=== PATIENT | male | born 1980 | race Caucasian/White ===

== ENCOUNTER 2024-11-02 08:16 | Outpatient (OUT) | payer BC, SELFPAY ==
--- NOTE | 2024-11-02 08:20 | FL_ITS ---
The [place] [id number] Patient Name: MEENAKSHI ROONEY MRN: [id number] date: 1980 Sex: M Assigned Patient Location: [place] Current Patient Location: [place] Accession/Order Number: [id number] Exam Date: 11/02/2024 08:30 Report Date: 11/02/2024 15:48 At the request of: JOVITA KAUFMAN Procedure: FL cineradiography PROCEDURE: FL upper GI w air, [place] cineradiography COMPARISON: None. HISTORY: Gastroesophageal Reflux Disease TECHNIQUE: An air contrast upper gastrointestinal series was performed in the usual manner. Standard level fluoroscopic mode of operation utilized. FINDINGS: ESOPHAGUS:Several episodes of mild gastroesophageal reflux. No visible obstruction, dilatation, or hernia STOMACH: No obstruction, mass, or ulceration. Normal motility. DUODENUM:No ulceration or diverticulum. OTHER: Negative. FL/FL cineradiography IMPRESSION: 1. Mild gastroesophageal reflux. Otherwise unremarkable upper GI study. Electronically authenticated by: DAKOTAH GOLDBERG Date: 11/02/2024 15:48
--- NOTE | 2024-11-02 08:20 | FL_ITS ---
The [address] [address] Patient Name: MEENAKSHI ROONEY MRN: [id number] date: 1980 Sex: M Assigned Patient Location: [place] Current Patient Location: [place] Accession/Order Number: [id number] Exam Date: 11/02/2024 08:30 Report Date: 11/02/2024 15:48 At the request of: JOVITA KAUFMAN Procedure: FL upper GI w air PROCEDURE: FL upper GI w air, [place] cineradiography COMPARISON: None. HISTORY: Gastroesophageal Reflux Disease TECHNIQUE: An air contrast upper gastrointestinal series was performed in the usual manner. Standard level fluoroscopic mode of operation utilized. FINDINGS: ESOPHAGUS:Several episodes of mild gastroesophageal reflux. No visible obstruction, dilatation, or hernia STOMACH: No obstruction, mass, or ulceration. Normal motility. DUODENUM:No ulceration or diverticulum. OTHER: Negative. [place] upper GI w air IMPRESSION: 1. Mild gastroesophageal reflux. Otherwise unremarkable upper GI study. Electronically authenticated by: DAKOTAH GOLDBERG Date: 11/02/2024 15:48
== END 2024-11-02 08:17 | disposition home or self-care (01) ==
LOC: FL 08:17
PROVIDERS: PCP Family Medicine; Visit Provider Family Medicine
DX: K21.9 Gastro-esophageal reflux disease without esophagitis (principal)
CPT/HCPCS: 74246; 76120

== ENCOUNTER 2024-12-07 12:36 | Outpatient (OUT) | payer BC, SELFPAY ==
--- OUTSIDE RECORDS SUMMARY | 2024-12-07 12:57 | XMS_ITS | CCD ---
Author Organization [facility] CliniSyal Care Team Providers Care Fur Glazer Name Role Phone DR JOVITA MARTINEZ Admitting Unavailable MANDEEP, DR HUSSEIN Attending Unavailable MANDEEP, DR HUSSEIN Primary Care Unavailable MANDEEP, DR HUSSEIN Admitting Unavailable MANDEEP, DR HUSSEIN Attending Unavailable MANDEEP, DR HUSSEIN Primary Care Unavailable HOY, DR HUSSEIN Admitting Unavailable MANDEEP, DR HUSSEIN Attending Unavailable MANDEEP, DR HUSSEIN Consulting Unavailable MANDEEP, DR HUSSEIN Primary Care Unavailable Turner Swenson DO Unavailable [phone] Margaux Vincent Unavailable Remberto Chapa Unavailable Turner Swenson DO Unavailable Chapo RODRIGUEZ, Mauricio Unavailable Turner Swenson DO Unavailable [phone] Mauricio Cowan MD Unavailable Jovita Martinez Primary Care Physician [phone] Kaykay Jimenez Unavailable MD Jovita Martinez Primary Care Provider DO Turner Swenson Attending Provider Jovita Martinez Unavailable Dr. Obey Gauthier III Attending Un available Dr. Jovita Martinez Primary Care Unavail able Dulce Fierro Admitting Unavailable Jovita Martinez Primary Care Unavailable Dulce Fierro Attending Unavailable Turner Swenson Attending Unavaila Turner Schafer Admitting Unavaila Jovita Walton Primary Care Unavailable Hoy, MD Jovita M Primary Care Provider [phone] CANDELARIO Fierro Emergency Provider [phone] Tawanda PALOMINO-Sofya BOWERS Unavailable Turner Swenson DO Unavailable [phone] Unavailable Primary Care Provider Unavailabl e Unavailable Primary Care Provider Unavailabl e SOFYA DSOUZA Attending Unavailable PROVIDER, UNKNOWN Admitting Unavailable SOFYA DSOUZA Attending Unavailable PROVIDER, UNKNOWN Admitting Unavailable SOFYA DSOUZA Referring Unavailable PROVIDER, UNKNOWN Attending Unavailable PROVIDER, UNKNOWN Admitting Unavailable SOFYA DSOUZA Attending Unavailable PROVIDER, UNKNOWN Admitting Unavailable PROVIDER, UNKNOWN Admitting Unavailable SOFYA DSOUZA Attending Unavailable Eleazar MIMS Attending Unavailable Jovita Martinez Referring Unavailable Medications Current Medications Medication Drug Class(es) Dates Sig (Normalized) Sig (Original) amoxicillin 500 mg oral capsule (1 source) Penicillin-class Antibacterial Start: 02-07-2023 take 1 capsule by mouth every eight hours Amoxicillin 500 MG 1 capsule Orally three times a day for 10 day(s) Jan, Active aspirin 81 mg chewable tablet (9 sources) Platelet Aggregation Inhibitor, Nonsteroidal Anti-inflammatory Drug Start: 06-05-2021 take 81 mg by mouth twice daily Aspirin Active 81 MG PO Twice daily 60 June 05, 2021 12:00am End: 10-13-2022 take 1 tablet by mouth twice daily aspirin 81 MG enteric coated tablet Take 81 mg by mouth 2 times daily. 0 10/13/2022 Discontinued cyclobenzaprine hydrochloride 10 mg oral tablet (9 sources) Muscle Relaxant Start: 06-04-2021 End: 10-13-2022 take 10 mg by mouth every eight hours Cyclobenzaprine Active 10 MG PO Q8H 60 June 04, 2021 12:00am diclofenac sodium 0.01 mg/mg topical gel (1 source) Nonsteroidal Anti-inflammator y Drug Start: 10-13-2022 End: 11-12-2022 diclofenac (Voltaren) 1 % GEL topical gel Apply 2 g topically 4 times daily. 100 g 0 10/13/2022 11/12/2022 Active docusate sodium 100 mg oral capsule (20 sources) Start: 05-20-2021 take 1 capsule by mouth twice daily docusate sodium (Colace) 100 MG capsule Take 1 Capsule by mouth 2 times daily. 60 Capsule 05/20/2021 Active 0.4 ml enoxaparin sodium 100 mg/ml prefilled syringe (20 sources) Low Molecular Weight Heparin Start: 05-25-2021 inject 0.4 mL by subcutaneous injection twice daily enoxaparin (Lovenox) 40 mg/0.4 mL injection Inject 0.4 mL under the skin 2 times daily. 33.6 mL 05/25/2021 Active gabapentin 100 mg oral capsule (9 sources) Anti-epileptic Agent Start: 06-04-2021 End: 10-13-2022 take 100 mg by mouth three times daily Gabapentin Active 100 MG PO Three times daily June 04, 2021 12:00am lidocaine 0.05 mg/mg medicated patch (19 sources) Antiarrhythmic, Amide Local Anesthetic Start: 10-13-2022 apply 1 dose transdermal route every twenty-four hours lidocaine (Lidoderm) 5 % patch Place 1 Patch on the skin every 24 hours. 10 Patch 3 10/13/2022 Active naproxen 500 mg oral tablet (20 sources) Nonsteroidal Anti-inflammator y Drug Start: 06-27-2023 take 1 tablet by mouth twice daily Naproxen (Naprosyn) 500 mg tablet Active 500 MG PO Twice daily June 27, 2023 12:00am Naproxen Sodium (Aleve) 220 MG CAPS Aleve Active Naproxen Sodium (ALEVE ORAL) Take by mouth. Pt. States he doesn't know the mg he takes. Active Naproxen Sodium (ALEVE ORAL) Take by mouth. Pt. States he doesn't know the mg he takes. 0 Active omeprazole 20 mg delayed release oral capsule (9 sources) Proton Pump Inhibitor Start: 06-04-2021 End: 10-13-2022 take 20 mg by mouth once daily Omeprazole Active 20 MG PO Daily June 04, 2021 12:00am oxyCODONE hydrochloride 5 mg oral tablet (9 sources) Opioid Agonist Start: 06-04-2021 End: 10-13-2022 take 5 mg by mouth every four hours Oxycodone Active 5 MG PO Every 4 hours 40 June 04, 2021 polysaccharide iron complex 150 mg oral capsule (9 sources) Start: 06-04-2021 End: 10-13-2022 Polysaccharide Iron Complex (Ferrex 150) 150 mg iron Capsule Active 150 MG PO Every morning June 04, 2021 12:00am pregabalin 100 mg oral capsule (20 sources) Start: 09-07-2024 End: 03-07-2025 take 1 capsule by mouth twice daily for pain pregabalin (LYRICA) 100 MG capsule Indications: Neuropathic pain , Displaced comminuted fracture of shaft of left tibia, subsequent encounter for closed fracture with delayed healing , Pain syndrome, chronic Take 1 Capsule by mouth 2 times daily for 90 days. 60 Capsule 2 12/07/2024 03/07/2025 Active Start: 02-26-2024 End: 08-10-2024 take 1 capsule by mouth twice daily for pain pregabalin (LYRICA) 100 MG capsule Indications: Neuropathic pain , Displaced comminuted fracture of shaft of left tibia, subsequent encounter for closed fracture with delayed healing , Pain syndrome, chronic Take 1 Capsule by mouth 2 times daily for 90 days. 60 Capsule 2 05/04/2024 08/10/2024 Discontinued (Reorder (*won't e-cancel)) Start: 08-23-2023 End: 02-16-2024 take 1 capsule by mouth twice daily pregabalin (LYRICA) 100 MG capsule Take 1 Capsule by mouth 2 times daily for 90 days. 60 Capsule 2 11/18/2023 02/03/2024 Discontinued (Reorder (*won't e-cancel)) Start: 01-14-2023 End: 08-23-2023 take 2 capsules by mouth twice daily pregabalin (Lyrica) 50 MG capsule Indications: Neuropathic pain , Pain syndrome, chronic Take 2 Capsules by mouth 2 times daily for 90 days. 120 Capsule 2 04/27/2023 08/23/2023 Discontinued (Dose adjustment) Start: 10-13-2022 End: 01-14-2023 take 1 capsule by mouth twice daily pregabalin (Lyrica) 50 MG capsule Indications: Pain syndrome, chronic , Neuropathic pain Take 1 Capsule by mouth 2 times daily for 90 days. 60 Capsule 2 10/13/2022 01/14/2023 Discontinued (Reorder (*won't e-cancel)) Sennosides (Senna Lax) 8.6 mg Tablet (2 sources) Start: 06-04-2021 take 2 tablets by mouth once daily Sennosides (Senna Lax) 8.6 mg Tablet Active 2 TAB PO DAILY@12 60 June 04, 2021 12:00am Completed/Discontinued Medications Medication Drug Class(es) Dates Sig (Normalized) Sig (Original) acetaminophen 500 mg oral tablet (11 sources) Start: 06-04-2021 End: 10-13-2022 acetaminophen (TYLENOL) 500 MG tablet Acetaminophen Active 500 MG PO Q4H 120 June 04, 2021 10:51am 0 06/04/2021 10/13/2022 Discontinued Start: 06-04-2021 take 500 mg by mouth every four hours Acetaminophen Active 500 MG PO Q4H 120 June 04, 2021 12:00am acetaminophen 325 mg / HYDROcodone bitartrate 5 mg oral tablet (1 source) Opioid Agonist Start: 10-26-2013 Charlotte 325 mg-5 mg oral tablet 1 tab(s), Oral, q4hr PRN for pain, 12 tab(s), Refill(s) 0, 0, Print Requisition Start Date: 10/26/13 Status: Ordered amoxicillin 875 mg / clavulanate 125 mg oral tablet (6 sources) Penicillin-class Antibacterial Start: 04-20-2023 End: 08-23-2023 take 1 tablet by mouth every twelve hours amoxicillin-clavul anate (AUGMENTIN) 875-125 MG per tablet Take 1 Tablet by mouth every 12 hours. for 10 days 0 04/20/2023 08/23/2023 Discontinued (Therapy completed) cephalexin 500 mg oral capsule (1 source) Cephalosporin Antibacterial Start: 10-26-2013 take 1 capsule by mouth four times daily Keflex 500 mg Cap 500 mg = 1 cap(s), Oral, QID, Take one capsule by mouth four times a day, # 40 cap(s), Refills(s) 0, 0, Print Requisition Start Date: 10/26/13 Status: Ordered ibuprofen 600 mg oral tablet (11 sources) Nonsteroidal Anti-inflammatory Drug Start: 06-04-2021 End: 10-13-2022 ibuprofen (MOTRIN) 600 MG tablet Ibuprofen Active 600 MG PO Q6H 60 June 04, 2021 10:51am 0 06/04/2021 10/13/2022 Discontinued Start: 06-04-2021 take 600 mg by mouth every six hours Ibuprofen Active 600 MG PO Q6H 60 June 04, 2021 12:00am Senna Leaves (7 sources) Start: 06-04-2021 End: 10-13-2022 SENNA CO Sennosides (Senna L ax) 8.6 mg Tablet Active 2 TAB PO DAILY@12 60 June 04, 2021 10:51am 0 06/04/2021 10/13/2022 Discontinued Start: 06-04-2021 SENNA CO Senno sides (Senna Lax) 8.6 mg Tablet Active 2 TAB PO DAILY@12 60 June 04, 2021 10:51am 0 06/04/2021 Active Problems Active Problems Problem Classification Problem Date Documented Date Episodic/Chronic Administrative/social admission (2 sources) Other reduced mobility; Translations: [Impaired mobility and activities of daily living] 05-26-2021 Episodic Deficiency and other anemia (2 sources) Anemia; Translations: [Anemia, unspecified] 05-26-2021 Episodic Other bone disease and musculoskeletal deformities (1 source) Bone pain; Translations: [Disorder of bone and cartilage, unspecified] Episodic Other connective tissue disease (20 sources) Neuropathic pain; Translations: [Neuralgia and neuritis, unspecified] Onset: 10-13-2022 Episodic Other connective tissue disease (2 sources) Spasm; Translations: [Other muscle spasm] 05-29-2021 Episodic Other connective tissue disease (1 source) Neuralgia; Translations: [Neuralgia and neuritis, unspecified] 04-27-2023 Episodic Other connective tissue disease (2 sources) Pain in left lower limb; Translations: [Pain in left lower leg] 07-16-2024 Episodic Other injuries and conditions due to external causes (1 source) Multiple injuries; Translations: [Unspecified multiple injuries, initial encounter] Episodic Other nervous system disorders (20 sources) Chronic pain syndrome; Translations: [Chronic pain syndrome] Onset: 10-13-2022 Chronic Other nervous system disorders (3 sources) Chronic pain syndrome Onset: 10-13-2022 10-13-2022 Chronic Other nervous system disorders (1 source) Chronic pain syndrome; Translations: [Chronic pain syndrome] Onset: 10-13-2022 Chronic Other nervous system disorders (1 source) Paresthesia of left lower limb; Translations: [Paresthesia of skin] Episodic Other nervous system disorders (2 sources) Postoperative pain ; Translations: [Other acute postprocedural pain] 05-26-2021 Episodic Other non-traumatic joint disorders (1 source) Ankle pain; Translations: [Pain in joint, ankle and foot] Episodic Other screening for suspected conditions (not mental disorders or infectious disease) (4 sources) Protein level - finding; Translations: [Other specified abnormal findings of blood chemistry] 05-26-2021 Episodic Other upper respiratory infections (3 sources) Acute upper respiratory infection; Translations: [Acute upper respiratory infection, unspecified] Onset: 02-12-2023 Episodic Residual codes; unclassified (4 sources) Obstructive sleep apnea (adult) (pediatric); Translations: [OBSTRUCTIVE SLEEP APNEA] Onset: 03-29-2022 Chronic Residual codes; unclassified (2 sources) Body mass index 20-24 - normal; Translations: [Body mass index (BMI) 21.0-21.9, adult] Episodic Residual codes; unclassified (2 sources) History of operation on musculoskeletal system; Translations: [Other specified postprocedural states] 05-26-2021 Episodic Residual codes; unclassified (2 sources) History of ankle surgery; Translations: [Other specified postprocedural states] 05-26-2021 Episodic Residual codes; unclassified (4 sources) Patient encounter status; Translations: [Encounter for prophylactic measures, unspecified] 05-26-2021 Episodic Spondylosis; intervertebral disc disorders; other back problems (2 sources) Lumbar radiculopathy; Translations: [Radiculopathy, lumbar region] 11-14-2024 Episodic Sprains and strains (1 source) Sprain of unspecified part of right wrist and hand, initial encounter; Translations: [Sprain of right hand] 06-27-2023 Episodic Unclassified (1 source) Pain in right wrist; Translations: [Pain in right wrist] Onset: 06-27-2023 Past or Other Problems Problem Classification Problem Date Documented Da te Episodic/Chronic Fracture of lower limb (20 sources) Closed fracture of shaft of tibia; Translations: [Displaced comminuted fracture of shaft of left tibia, initial encounter for closed fracture] Onset: 05-19-2021 Resolved: 10-06-2021 Episodic Fracture of lower limb (20 sources) Closed fracture of shaft of femur; Translations: [Displaced spiral fracture of shaft of right femur, subsequent encounter for closed fracture with routine healing] Onset: 05-19-2021 Resolved: 10-06-2021 Episodic Other aftercare (1 source) Encounter for therapeutic drug level monitoring; Translations: [Encounter for therapeutic drug level monitoring] Onset: 08-10-2024 Episodic Other connective tissue disease (3 sources) Neuralgia, neuritis, and radiculitis, unspecified Onset: 10-13-2022 10-13-2022 Episodic Other connective tissue disease (1 source) Pain in left lower leg; Translations: [Pain in left lower leg] Onset: 07-16-2024 Episodic Other connective tissue disease (1 source) Neuralgia and neuritis, unspecified; Translations: [Neuralgia and neuritis, unspecified] Onset: 10-13-2022 Episodic Other nervous system disorders (1 source) Paresthesia of skin; Translations: [Paresthesia of skin] Onset: 02-24-2023 Episodic Results Test Name Value Interpretation Reference Range Facility Ambulatory Visit Summaryon 0 12-05-2024 Ambulatory Visit Summary Ambulatory Visit Summary TOM ROONEY :1980 Visit Date:12/05/2024 Ambulatory Visit Instructions Your Care Team Attending Physician - Eleazar MIMS MD Primary Care Physician - Jovita Martinez MD Referring Physician - Jovita Martinez MD This Is Your Medications List Contact prescribing physician if questions or concerns pantoprazole (Protonix 40 mg Tab-DR) pregabalin (pregabalin 150 mg Cap) Procedures Performed Buccal mucosa squamous cell carcinoma., ORIF - Open reduction and internal fixation of fracture, Tympanostomy tube. Discharge Vitals Heart Rate (Peripheral) 71 Respiratory Rate 16 Blood Pressure 120/78 Height 190.5 cm Height 75 in Weight 86.4 kg Weight 190.479 lb BMI 23.81 Medications What How Much When Instructions Unchanged pantoprazole (Protonix 40 mg Tab-DR) 1 Tablets By Mouth Every day Contact prescribing physician if questions or concerns Unchanged pregabalin (pregabalin 150 mg Cap) 1 Capsules By Mouth Every day Contact prescribing physician if questions or concerns Allergies No Known Allergies Problems Ongoing - Any problem that you are currently receiving treatment for. Chronic constipation Chronic pain syndrome Chronic prostatitis GERD (gastroesophageal reflux disease) DORIAN (obstructive sleep apnea) Seasonal allergic rhinitis Patient Survey You may receive a survey via text or e-mail asking about your office visit. Please share your experience with us by completing your survey. We appreciate your feedback and thank you for choosing us for your care. 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 Patient presents today for follow up regarding chronic conditions. History was provided by the patient. Since the last visit for knee, ankle and leg pain, patient has had stable course. Pain level today is 0/10. Pain when present is currently described as throbbing and stabbingwith radiation to legs and without weakness of arms or legs, and is made worse by nothing.Patient denies any recent traumas or injuries. He is being prescribed Lyrica. He is reporting this regimen is improving his ability to perform his ADL's and is reporting an analgesic effect with medication therapy. Patient reports sharp pain and pressure intermittently in great toe and second toe, mostly in left can happen in right as well REVIEW OF SYSTEMS: Constitutional: Denies unexplained wt loss/gain, change in appetite, fever, and chills. Respiratory: negative symptoms (no cough, hemoptysis, SOB, KEARNEY, PND, wheezing) Cardiovascular: negative symptoms (No CP/Pressure/Tightness, palpitations, orthopnea, PND, SOB, KEARNEY, edema, MELENDEZ or vision change) Gastrointestinal: negative symptoms (no abdominal pain, anorexia, n/v, indigestion, constipation, or diarrhea) Musculoskeletal: bilateral lower extremities : Denies bowel or bladder incontinence or saddle anesthesia. Neuro: Intermittently tingling in right foot and left foot. OBJECTIVE: Today's vital signs were reviewed General appearance: alert, pleasant, mild distress, cooperative. Skin: Normal turgor; no rash or other lesions, no peripheral edema. Neck: supple and no adenopathy. Lungs:deferred. Heart: deferred. Abdomen: Deferred. Back: Back: Symmetric, no abnormal curvature. Musculoskeletal: Left upper extremity 5/5, Right upper extremity 5/5, Left lower extremity 4/5, and Right lower extremity 5/5 strength respectively. TTP over left anterior tibia and ankle scars Neurologic: Positive vibratory sensation LUE, RUE, LLE, and RLE. Last OV: 08/10/24 Last MD CO KEITH and Plan: 04/13/23 Impression: 42 YOM , S.P WC injury right femur IMN and left tibia IMN and ankle ORIF in 04/2021 with neuropathic pain distal leg and ankle , non dermatomal , better Plan: 1. Discussed options OARRS reviewed Voltaren gel Lido patches Increase to Lyrica 100 BID Discussed sciatic and saphenus blocks if pain worsen F/U with COMPENSATION DIRECTOR in 3 M The impression and plan were discussed and explained in detail. All the questions were answered. Education was provided accordingly. The procedure was explained in detail, along with risks and potential side effects. The appropriate use of the medications, including storage, risks (including addiction) and potential sides effects were explained and discussed. Procedures: None Pertinent Imaging/Labs: Left tib/fib 07/16/24 IMPRESSION: Comparison with the previous studies shows no change in position or alignment of the previously described fractures. The tibial fracture is healed or mostly healed without significant residual fracture lucency. There remains a residual deformity with bony protuberance anteriorly and a small defect posteriorly. The fibular fracture appears healed without residual fracture lucency. Hardware is intact without signs of loosening. EMG 05/13/23 Mildly abnormal study 1. Nerve conduction studies revealed absence of a left superficial peroneal sensory response, which can be seen in left superficial peroneal sensory neuropathy. However, needle EMG of muscles innervated by the left superficial peroneal nerve was normal, pointing against any motor involvement if pathology truly present. 2. There is no electrodiagnostic evidence of left tibial neuropathy or overt left L3-S1 radiculopathy. Significance of the isolated increased amplitude motor unit noted in the left EDB is uncertain. XRAY RIGHT ANKLE 05/02/23 Healed tibial shaft fracture, fibular shaft fracture ankle fracture Narrative Interpreted By: OBEY GAUTHIER MD Patient Name: TOM ROONYE STUDY: ANKLE, COMPLETE, MIN 3 VIEWS; Left; 05/02/2023 4:13 pm INDICATION: pain M25.571: Ankle pain, right. COMPARISON: None. ACCESSION NUMBER(S): [id number] ORDERING CLINICIAN: OBEY GAUTHIER FINDINGS: Multiple views left ankle: Status post open reduction internal fixation: Healed ankle fracture in near anatomic alignment. Abundant bridging bone formation of tibial shaft fracture. See EHR for PMH, PSH, FH, SH, Medications and Allergy Portions of record reviewed for pertinent issues: active problem list, medication list, allergies, family history, social history, notes from last encounter, lab results, and imaging. Relevant medical history: work related injury o (more content not included)... Normal [facility] TOX ANALYSIS W/CONFIMATION,U Bryce 11-13-2024 Amphetamines Ql (U) Negative Cutoff: 1000 ng/mL [facility] Barbiturates Screen Ql (U) Negative Cutoff: 200 ng/mL [facility] Benzodiazepines Ql (U) Negative Cutof f: 200 ng/mL [facility] Benzoylecgonine Screen Ql (U) Negative Cutoff: 300 ng/mL [facility] Ethanol Screen Ql (U) Negative Cutoff : 10 mg/dL [facility] fentaNYL Screen Ql (U) Negative Cutof f: 1 ng/mL [facility] Interpretation and review of laboratory results Normal [facility] Methadone Screen Ql (U) Negative Cutoff: 300 ng/mL [facility] Opiates Confirm Ql (U) Negative Cutof f: 300 ng/mL [facility] oxyCODONE Ql (U) Negative Cutoff: 100 ng/mL [facility] Comment on above: Oxycodone and metabo lites of Oxycodone (Oxymorphone, Noroxycodone, and Noroxymorphone) are measured/detected in this assay method. Phencyclidine Ql (U) Negative Cutoff: 25 ng/mL [facility] Tetrahydrocannabinol Screen Ql (U) Negative Cutoff: 50 ng/mL [facility] Screen results are reported as positive (at or above the cutoff) or negative (below the cutoff). The LC-MS/MS testing (if applicable) was developed and its performance characteristics determined by [facility] in a manner consistent with CLIA requirements. This test has not been cleared or approved by the U.S. Food and Drug Administration; however, the FDA has determined that such clearance or approval is not necessary. [facility] ALCOHOL - TOX W/ CONF Negative Normal Cutoff: 10 [facility] Comment on above: Order Comment: Scree n results are reported as positive (at or above the cutoff) or negative (below the cutoff). The LC-MS/MS testing (if applicable) was developed and its performance characteristics determined by [facility] in a manner consistent with CLIA requirements. This test has not been cleared or approved by the U.S. Food and Drug Administration; however, the FDA has determined that such clearance or approval is not necessary. Performed By: #### T OX U #### [facility] [address] [place] [address], AMPH CL Negative Normal Cutoff: 1000 [facility] Comment on above: Order Comment: Scree n results are reported as positive (at or above the cutoff) or negative (below the cutoff). The LC-MS/MS testing (if applicable) was developed and its performance characteristics determined by [facility] in a manner consistent with CLIA requirements. This test has not been cleared or approved by the U.S. Food and Drug Administration; however, the FDA has determined that such clearance or approval is not necessary. Performed By: #### T OX U #### [facility] [address] [place] [address], NHAN CL Negative Normal Cutoff: 200 [facility] Comment on above: Order Comment: Scree n results are reported as positive (at or above the cutoff) or negative (below the cutoff). The LC-MS/MS testing (if applicable) was developed and its performance characteristics determined by [facility] in a manner consistent with CLIA requirements. This test has not been cleared or approved by the U.S. Food and Drug Administration; however, the FDA has determined that such clearance or approval is not necessary. Performed By: #### T OX U #### [facility] [address] [place] [address], BENZO CL Negative Normal Cutoff: 200 [facility] Comment on above: Order Comment: Scree n results are reported as positive (at or above the cutoff) or negative (below the cutoff). The LC-MS/MS testing (if applicable) was developed and its performance characteristics determined by [facility] in a manner consistent with CLIA requirements. This test has not been cleared or approved by the U.S. Food and Drug Administration; however, the FDA has determined that such clearance or approval is not necessary. Performed By: #### T OX U #### [facility] [address], [place], [place] CL- TOX W/ CONF Negative Normal Cutoff: 300 [facility] Comment on above: Order Comment: Scree n results are reported as positive (at or above the cutoff) or negative (below the cutoff). The LC-MS/MS testing (if applicable) was developed and its performance characteristics determined by [facility] in a manner consistent with CLIA requirements. This test has not been cleared or approved by the U.S. Food and Drug Administration; however, the FDA has determined that such clearance or approval is not necessary. Performed By: #### T OX U #### [facility] [address], [place], FENTANY[place] Negative Normal Cutoff: 1 [facility] Comment on above: Order Comment: Scree n results are reported as positive (at or above the cutoff) or negative (below the cutoff). The LC-MS/MS testing (if applicable) was developed and its performance characteristics determined by [facility] in a manner consistent with CLIA requirements. This test has not been cleared or approved by the U.S. Food and Drug Administration; however, the FDA has determined that such clearance or approval is not necessary. Performed By: #### T OX U #### [facility] [address], [place], METH CL Negative Normal Cutoff: 300 [facility] Comment on above: Order Comment: Scree n results are reported as positive (at or above the cutoff) or negative (below the cutoff). The LC-MS/MS testing (if applicable) was developed and its performance characteristics determined by [facility] in a manner consistent with CLIA requirements. This test has not been cleared or approved by the U.S. Food and Drug Administration; however, the FDA has determined that such clearance or approval is not necessary. Performed By: #### T OX U #### [facility] [address], [place], OPI CL Negative Normal Cutoff: 300 [facility] Comment on above: Order Comment: Scree n results are reported as positive (at or above the cutoff) or negative (below the cutoff). The LC-MS/MS testing (if applicable) was developed and its performance characteristics determined by [facility] in a manner consistent with CLIA requirements. This test has not been cleared or approved by the U.S. Food and Drug Administration; however, the FDA has determined that such clearance or approval is not necessary. Performed By: #### T OX U #### [facility] [address], [place], OXYCODONE Negative Normal Cutoff: 100 [facility] Comment on above: Order Comment: Scree n results are reported as positive (at or above the cutoff) or negative (below the cutoff). The LC-MS/MS testing (if applicable) was developed and its performance characteristics determined by [facility] in a manner consistent with CLIA requirements. This test has not been cleared or approved by the U.S. Food and Drug Administration; however, the FDA has determined that such clearance or approval is not necessary. Result Comment: Oxyc odone and metabolites of Oxycodone (Oxymorphone, Noroxycodone, and Noroxymorphone) are measured/detected in this assay method. Performed By: #### T OX U #### [facility] [address] [place] [address], PCP CL Negative Normal Cutoff: 25 [facility] Comment on above: Order Comment: Scree n results are reported as positive (at or above the cutoff) or negative (below the cutoff). The LC-MS/MS testing (if applicable) was developed and its performance characteristics determined by [facility] in a manner consistent with CLIA requirements. This test has not been cleared or approved by the U.S. Food and Drug Administration; however, the FDA has determined that such clearance or approval is not necessary. Performed By: #### T OX U #### [facility] [address], [place], THC CL - TOX W/ CONF Negative Normal Cutoff: 50 [facility] Comment on above: Order Comment: Scree n results are reported as positive (at or above the cutoff) or negative (below the cutoff). The LC-MS/MS testing (if applicable) was developed and its performance characteristics determined by [facility] in a manner consistent with CLIA requirements. This test has not been cleared or approved by the U.S. Food and Drug Administration; however, the FDA has determined that such clearance or approval is not necessary. Performed By: #### T OX U #### [facility] [address] [place] [address], [phone] Progress Noteson 08-12-2024 Draw Fire Operator Authentication Interface Message Text PAIN MANAGEMENT FOLLOW-UP Documentation: Mode: Video Consent: This visit was initiated by the patient. Audio and visual communication was utilized in real-time. I confirmed understanding of risks and benefits of telehealth visits and obtained consent to proceed with the telemedicine visit. 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 Since the last visit for knee, ankle leg pain, patient has had stable course. Pain level today is 0/10. Pain is currently described as throbbing and stabbingwith radiation to legs and without weakness of arms or legs, and is made worse by nothing.Patient denies any recent traumas or injuries. He is being prescribed Lyrica. Reports still doing well on current dosing. Leg symptoms persist with certain movement but not that bad per patient not interested in PT at this time. REVIEW OF SYSTEMS: Constitutional: Denies unexplained wt loss/gain, change in appetite, fever, and chills. Respiratory: negative symptoms (no cough, hemoptysis, SOB, KEARNEY, PND, wheezing) Cardiovascular: negative symptoms (No CP/Pressure/Tightness, palpitations, orthopnea, PND, SOB, KEARNEY, edema, MELENEDZ or vision change) Gastrointestinal: negative symptoms (no abdominal pain, anorexia, n/v, indigestion, constipation, or diarrhea) Musculoskeletal: bilateral lower extremities : Denies bowel or bladder incontinence or saddle anesthesia. Neuro: Intermittently tingling in right foot and left foot. No physical exam due to video visit Patient is A AND O x3, fully participating in the video visit , and appears well. OBJECTIVE: 05/04/24 Today's vital signs were reviewed General appearance: alert, pleasant, mild distress, cooperative. Skin: Normal turgor; no rash or other lesions, no peripheral edema. Neck: supple and no adenopathy. Lungs:deferred. Heart: deferred. Abdomen: Deferred. Back: Back: Symmetric, no abnormal curvature. Musculoskeletal: Left upper extremity 5/5, Right upper extremity 5/5, Left lower extremity 4/5, and Right lower extremity 5/5 strength respectively. TTP over left anterior tibia and ankle scars Neurologic: Positive vibratory sensation LUE, RUE, LLE, and RLE. Last OV: 05/04/24 Last MD CO KEITH and Plan: 04/13/23 Impression: 42 YOM , S.P WC injury right femur IMN and left tibia IMN and ankle ORIF in 04/2021 with neuropathic pain distal leg and ankle , non dermatomal , better Plan: 1. Discussed options OARRS reviewed Voltaren gel Lido patches Increase to Lyrica 100 BID Discussed sciatic and saphenus blocks if pain worsen F/U with COMPENSATION DIRECTOR in 3 M The impression and plan were discussed and explained in detail. All the questions were answered. Education was provided accordingly. The procedure was explained in detail, along with risks and potential side effects. The appropriate use of the medications, including storage, risks (including addiction) and potential sides effects were explained and discussed. Procedures: None Pertinent Imaging/Labs: Left tib/fib 07/16/24 IMPRESSION: Comparison with the previous studies shows no change in position or alignment of the previously described fractures. The tibial fracture is healed or mostly healed without significant residual fracture lucency. There remains a residual deformity with bony protuberance anteriorly and a small defect posteriorly. The fibular fracture appears healed without residual fracture lucency. Hardware is intact without signs of loosening. EMG 05/13/23 Mildly abnormal study 1. Nerve conduction studies revealed absence of a left superficial peroneal sensory response, which can be seen in left superficial peroneal sensory neuropathy. However, needle EMG of muscles innervated by the left superficial peroneal nerve was normal, pointing against any motor involvement if pathology truly present. 2. There is no electrodiagnostic evidence of left tibial neuropathy or overt left L3-S1 radiculopathy. Significance of the isolated increased amplitude motor unit noted in the left EDB is uncertain. XRAY RIGHT ANKLE 05/02/23 Healed tibial shaft fracture, fibular shaft fracture ankle fracture Narrative Interpreted By: OBEY GAUTHIER MD Patient Name: TOM ROONEY STUDY: ANKLE, COMPLETE, MIN 3 VIEWS; Left; 05/02/2023 4:13 pm INDICATION: pain M25.571: Ankle pain, right. COMPARIS (more content not included)... Normal [facility] XR TIBIA LEFT 2 VIEWSon 06-28 XR TIBIA LEFT 2 VIEWS EXAMINATION: XR TI PRABHJOT LEFT 2 VIEWSPRO//07/16/2024 01:45 PM CLINICAL HISTORY: pain ASSOCIATED DIAGNOSIS: Pain in left jimenez ORDERING PROVIDER: [employer] NOTE: COMPARISON: XR TIBIA LEFT 2 VIEWS 04/27/2023, 10:52 AM IMPRESSION: Comparison with the previous studies shows no change in position or alignment of the previously described fractures. The tibial fracture is healed or mostly healed without significant residual fracture lucency. There remains a residual deformity with bony protuberance anteriorly and a small defect posteriorly. The fibular fracture appears healed without residual fracture lucency. Hardware is intact without signs of loosening. Left tibia and fibula MACRO: None Normal [facility] XR Tibia and Fibula - left V iewson 07-16-2024 EXAMINATION: XR TIBI A LEFT 2 VIEWSPRO/LT/07/16/2024 01:45 PM CLINICAL HISTORY: pain ASSOCIATED DIAGNOSIS: Pain in left jimenez ORDERING PROVIDER: [employer] NOTE: COMPARISON: XR TIBIA LEFT 2 VIEWS 04/27/2023, 10:52 AM IMPRESSION: Comparison with the previous studies shows no change in position or alignment of the previously described fractures. The tibial fracture is healed or mostly healed without significant residual fracture lucency. There remains a residual deformity with bony protuberance anteriorly and a small defect posteriorly. The fibular fracture appears healed without residual fracture lucency. Hardware is intact without signs of loosening. Left tibia and fibula MACRO: None Eleazar Ramírez DO - 07/16/2024 EXAMINATION: XR TIBIA LEFT 2 VIEWSPRO/LT/07/16/2024 01:45 PM CLINICAL HISTORY: pain ASSOCIATED DIAGNOSIS: Pain in left jimenez ORDERING PROVIDER: [employer] NOTE: COMPARISON: XR TIBIA LEFT 2 VIEWS 04/27/2023, 10:52 AM IMPRESSION: Comparison with the previous studies shows no change in position or alignment of the previously described fractures. The tibial fracture is healed or mostly healed without significant residual fracture lucency. There remains a residual deformity with bony protuberance anteriorly and a small defect posteriorly. The fibular fracture appears healed without residual fracture lucency. Hardware is intact without signs of loosening. Left tibia and fibula MACRO: None [facility] Study observation (narrative) [facility] XR Tibia and Fibula - left V iewsOrdered By: Eleazar Dash on 07-16-2024 [facility] Work Phone: Progress Noteson 05-04-2024 Draw Fire Operator Authentication Interface Message Text Patient was identified by name and date of . 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 Since the last visit for knee, ankle leg pain, patient has had stable course. Pain level today is 0/10. Pain is currently described as throbbing and stabbingwith radiation to legs and without weakness of arms or legs, and is made worse by nothing.Patient denies any recent traumas or injuries. He is being prescribed Lyrica. He is reporting this regimen is improving his ability to perform his ADL's; is not manifesting any adverse effects (constipation, nausea, somnolence); is reporting an analgesic effect of pain relief from 8/10 to 2/10 with medication therapy; and is not demonstrating aberrant behaviors (psychiatric difficulties, attendance for office appointments, non-compliance, or deceitful activities). REVIEW OF SYSTEMS: Constitutional: Denies unexplained wt loss/gain, change in appetite, fever, and chills. Respiratory: negative symptoms (no cough, hemoptysis, SOB, KEARNEY, PND, wheezing) Cardiovascular: negative symptoms (No CP/Pressure/Tightness, palpitations, orthopnea, PND, SOB, KEARNEY, edema, MELENDEZ or vision change) Gastrointestinal: negative symptoms (no abdominal pain, anorexia, n/v, indigestion, constipation, or diarrhea) Musculoskeletal: bilateral lower extremities : Denies bowel or bladder incontinence or saddle anesthesia. Neuro: Intermittently tingling in right foot and left foot. OBJECTIVE: Today's vital signs were reviewed General appearance: alert, pleasant, mild distress, cooperative. Skin: Normal turgor; no rash or other lesions, no peripheral edema. Neck: supple and no adenopathy. Lungs:deferred. Heart: deferred. Abdomen: Deferred. Back: Back: Symmetric, no abnormal curvature. Musculoskeletal: Left upper extremity 5/5, Right upper extremity 5/5, Left lower extremity 4/5, and Right lower extremity 5/5 strength respectively. TTP over left anterior tibia and ankle scars Neurologic: Positive vibratory sensation LUE, RUE, LLE, and RLE. Last OV: 02/03/24 Last MD CO EVAL and Plan: 04/13/23 Impression: 42 YOM , S.P WC injury right femur IMN and left tibia IMN and ankle ORIF in 04/2021 with neuropathic pain distal leg and ankle , non dermatomal , better Plan: 1. Discussed options OARRS reviewed Voltaren gel Lido patches Increase to Lyrica 100 BID Discussed sciatic and saphenus blocks if pain worsen F/U with COMPENSATION DIRECTOR in 3 M The impression and plan were discussed and explained in detail. All the questions were answered. Education was provided accordingly. The procedure was explained in detail, along with risks and potential side effects. The appropriate use of the medications, including storage, risks (including addiction) and potential sides effects were explained and discussed. Procedures: None Pertinent Imaging/Labs: EMG 05/13/23 Mildly abnormal study 1. Nerve conduction studies revealed absence of a left superficial peroneal sensory response, which can be seen in left superficial peroneal sensory neuropathy. However, needle EMG of muscles innervated by the left superficial peroneal nerve was normal, pointing against any motor involvement if pathology truly present. 2. There is no electrodiagnostic evidence of left tibial neuropathy or overt left L3-S1 radiculopathy. Significance of the isolated increased amplitude motor unit noted in the left EDB is uncertain. XRAY RIGHT ANKLE 05/02/23 Healed tibial shaft fracture, fibular shaft fracture ankle fracture Narrative Interpreted By: OBEY GAUTHIER MD Patient Name: TOM ROONEY STUDY: ANKLE, COMPLETE, MIN 3 VIEWS; Left; 05/02/2023 4:13 pm INDICATION: pain M25.571: Ankle pain, right. COMPARISON: None. ACCESSION NUMBER(S): [id number] ORDERING CLINICIAN: OBEY AGUTHIER FINDINGS: Multiple views left ankle: Status post open reduction internal fixation: Healed ankle fracture in near anatomic alignment. Abundant bridging bone formation of tibial shaft fracture. TIB/FIB XRAY 05/02/23 Impression Healed mid shaft tibia and fibula fracture Narrative Interpreted By: OBEY GAUTHIER MD Patient Name: TOM ROONEY STUDY: TIBIA ; Left; 05/02/2023 4:13 pm INDICATION: pain M89.8X6: Pain in left tibia. COMPARISON: None. ACCESSION NUMBER(S): [id number] ORDERING CLINICIAN: OBEY GAUTHIER FINDINGS: Two views left tib fib: Healed mid shaft tibia fracture status post intramedullary nailing abundant bridging bone formation consistent with a healed tibial shaft fracture and fibula fracture. PRIOR MEDICAL HISTORY: No past medical history on file. PRIOR SURGICAL HISTORY: Past Surgical History: Procedure Laterality Date REDUCTION, OPEN, FEMUR, INTR (more content not included)... 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 Since the last visit for knee, ankle leg pain, patient has had stable course. Pain level today is 2/10. Pain is currently described as throbbing and stabbingwith radiation to legs and without weakness of arms or legs, and is made worse by nothing.Patient denies any recent traumas or injuries. He is being prescribed Lyrica. He is reporting this regimen is improving his ability to perform his ADL's; is not manifesting any adverse effects (constipation, nausea, somnolence); is reporting an analgesic effect of pain relief from 8/10 to 2/10 with medication therapy; and is not demonstrating aberrant behaviors (psychiatric difficulties, attendance for office appointments, non-compliance, or deceitful activities). REVIEW OF SYSTEMS: Constitutional: Denies unexplained wt loss/gain, change in appetite, fever, and chills. Respiratory: negative symptoms (no cough, hemoptysis, SOB, KEARNEY, PND, wheezing) Cardiovascular: negative symptoms (No CP/Pressure/Tightness, palpitations, orthopnea, PND, SOB, KEARNEY, edema, MELENDEZ or vision change) Gastrointestinal: negative symptoms (no abdominal pain, anorexia, n/v, indigestion, constipation, or diarrhea) Musculoskeletal: bilateral lower extremities : Denies bowel or bladder incontinence or saddle anesthesia. Neuro: Intermittently tingling in right foot and left foot. OBJECTIVE: Today's vital signs were reviewed General appearance: alert, pleasant, mild distress, cooperative. Skin: Normal turgor; no rash or other lesions, no peripheral edema. Neck: supple and no adenopathy. Lungs:deferred. Heart: deferred. Abdomen: Deferred. Back: Back: Symmetric, no abnormal curvature. Musculoskeletal: Left upper extremity 5/5, Right upper extremity 5/5, Left lower extremity 4/5, and Right lower extremity 5/5 strength respectively. TTP over left anterior tibia and ankle scars Neurologic: Positive vibratory sensation LUE, RUE, LLE, and RLE. Last OV: 08/23/23 Last MD CO EVAL and Plan: 04/13/23 Impression: 42 YOM , S.P WC injury right femur IMN and left tibia IMN and ankle ORIF in 04/2021 with neuropathic pain distal leg and ankle , non dermatomal , better Plan: 1. Discussed options OARRS reviewed Voltaren gel Lido patches Increase to Lyrica 100 BID Discussed sciatic and saphenus blocks if pain worsen F/U with COMPENSATION DIRECTOR in 3 M The impression and plan were discussed and explained in detail. All the questions were answered. Education was provided accordingly. The procedure was explained in detail, along with risks and potential side effects. The appropriate use of the medications, including storage, risks (including addiction) and potential sides effects were explained and discussed. Procedures: None Pertinent Imaging/Labs: EMG 05/13/23 Mildly abnormal study 1. Nerve conduction studies revealed absence of a left superficial peroneal sensory response, which can be seen in left superficial peroneal sensory neuropathy. However, needle EMG of muscles innervated by the left superficial peroneal nerve was normal, pointing against any motor involvement if pathology truly present. 2. There is no electrodiagnostic evidence of left tibial neuropathy or overt left L3-S1 radiculopathy. Significance of the isolated increased amplitude motor unit noted in the left EDB is uncertain. XRAY RIGHT ANKLE 05/02/23 Healed tibial shaft fracture, fibular shaft fracture ankle fracture Narrative Interpreted By: OBEY GAUTHIER MD Patient Name: TOM ROONEY STUDY: ANKLE, COMPLETE, MIN 3 VIEWS; Left; 05/02/2023 4:13 pm INDICATION: pain M25.571: Ankle pain, right. COMPARISON: None. ACCESSION NUMBER(S): [id number] ORDERING CLINICIAN: OBEY GAUTHIER FINDINGS: Multiple views left ankle: Status post open reduction internal fixation: Healed ankle fracture in near anatomic alignment. Abundant bridging bone formation of tibial shaft fracture. TIB/FIB XRAY 05/02/23 Impression Healed mid shaft tibia and fibula fracture Narrative Interpreted By: OBEY GAUTHIER MD Patient Name: TOM ROONEY STUDY: TIBIA ; Left; 05/02/2023 4:13 pm INDICATION: pain M89.8X6: Pain in left tibia. COMPARISON: None. ACCESSION NUMBER(S): [id number] ORDERING CLINICIAN: OBEY GAUTHIER FINDINGS: Two views left tib fib: Healed mid shaft tibia fracture status post intramedullary nailing abundant bridging bone formation consistent with a healed tibial shaft fracture and fibula fracture. PRIOR MEDICAL HISTORY: No past medical history on file. PRIOR SURGICAL HISTORY: Past Surgical History: Procedure Laterality Date REDUCTION, OPEN, FEMUR, INT (more content not included)... Normal [facility] XR hand RT min 3V*on 023 XR hand RT min 3V* [facility] [place] [address] [place] [id number] XRay Report Signed Patient: Tom Rooney MR#: [id number] : 1980 Acct:[id number] Age/Sex: 42 / M ADM Date: 06/27/23 Loc: ER Room: Type: [facility] ER Attending Dr: Copies to: Dulce Fierro APRN Ordering Provider: Dulce Fierro APRN Date of Service: 06/27/23 XR/XR hand RT min 3V*: Extremity Injury, Upper 3 views RIGHT hand plain film COMPARISON: None HISTORY: Fell. RIGHT hand and wrist injury ACUTE FINDINGS: None DEGENERATIVE CHANGE: Unremarkable SOFT TISSUE FINDINGS: Unremarkable JOINT EFFUSION: None POSTOP CHANGES: None BONY MINERALIZATION: Adequate XR/XR hand RT min 3V* IMPRESSION: No acute findings Impression dictated by: Gabriel Arvizu M.D.06/28/2023 8:18 AM Dictation Location: [facility] Transcribed By: FERNIE 06/28/23817 Dictated By: Gabriel Arvizu DO 06/28/23816 Signed By: 06/28/23817 [facility] XR wrist RT min 3V*on 2022 XR wrist RT min 3V* [place] [address] XRay Report Signed Patient: Tom Rooney MR#: [id number] 23 : 1980 Acct:[id number] Age/Sex: 42 / M ADM Date: 06/27/23 Loc: ER Room: Type: [facility] ER Attending Dr: Copies to: Dulce Fierro APRN Ordering Provider: Dulce Fierro APRN Date of Service: 06/27/23 XR/XR wrist RT min 3V*: Extremity Injury, Upper 4 views RIGHT wrist plain film COMPARISON: None HISTORY: Fell injuring RIGHT wrist ACUTE FINDINGS: None DEGENERATIVE CHANGE: Unremarkable SOFT TISSUE FINDINGS: Unremarkable JOINT EFFUSION: None POSTOP CHANGES: None BONE MINERALIZATION: Adequate XR/XR wrist RT min 3V* IMPRESSION: No acute bony findings. Impression dictated by: Gabriel Arvizu M.D.06/28/2023 8:21 AM Dictation Location: [facility] Transcribed By: FERNIE 06/28/23820 Dictated By: Gabriel Arvizu DO 06/28/23817 Signed By: 06/28/23820 [facility] ANKLE, COMPLETE, MIN 3 VIEWS on 05-02-2023 ANKLE, COMPLETE, MIN 3 VIEWS Patient Name: TOM ROONEY STUDY: ANKLE, COMPLETE, MIN 3 VIEWS; Left; 05/02/2023 4:13 pm INDICATION: pain M25.571: Ankle pain, right. COMPARISON: None. ACCESSION NUMBER(S): [id number] ORDERING CLINICIAN: OBEY GAUTHIER FINDINGS: Multiple views left ankle: Status post open reduction internal fixation: Healed ankle fracture in near anatomic alignment. Abundant bridging bone formation of tibial shaft fracture. IMPRESSION: Healed tibial shaft fracture, fibular shaft fracture ankle fracture Electronically signed by: OBEY GAUTHIER MD [facility] Initial Visit (Orthopaedic S urgery)on 05-02-2023 Initial Visit (Orthopaedic Surgery) Diagnoses/Problems Assessed Ankle pain, left (719.47) (M25.572) Pain in left tibia (733.90) (M89.8X6) Orders Ankle pain, left Xray Ankle 3 View; Status:Complete; Done: 02May2023 04:13PM Laterality : Left Radiologist to Determine Optimal Study : Y What are the patient's signs and symptoms? : pain Pain in left tibia Xray Tibia + Fibula 2 View; Status:Complete; Done: 02May2023 04:13PM Laterality : Left Radiologist to Determine Optimal Study : Y What are the patient's signs and symptoms? : pain Chief Complaint New Patient - [facility] left ankle and tibia pain, history of fracture and surgery, x-rays today History of Present Illness History of Present Illness 42-year-old male with history of tibial shaft fracture, fibula fracture as well as ankle fracture date of injury May 19, 2021 underwent intramedullary nailing and open reduction internal fixation right ankle by Dr. Swenson at [facility]. Patient presents today for a second opinion. Patient has been following closely with Dr. Swenson and is going to follow-up his nerve testing studies of his lower extremity within the coming weeks. Presents today for another evaluation regarding his leg to see if there is anything to do about some residual symptoms that he has a result of injury to include sharp pains and occasional feeling of discomfort about the shaft of the tibia. Review of Systems GENERAL: Negative GI: Negative MUSCULOSKELETAL: See HPI SKIN: Negative NEURO: Negative Physical Exam Focused examination of right lower extremity: Prior incisions well-healed no surrounding erythema compartments are soft and compressible. Active dorsiflexion plantarflexion. Palpable dorsalis pedis pulse. Minimal if any tenderness palpation tibial shaft. Nontender palpation about the ankle knee or leg throughout. Imaging X-rays as follows my interpretation as follows: Right tibia: Status post intramedullary nail tibia there is abundant bridging bone consistent with a healed tibial shaft fracture X-rays right ankle: Status post open reduction internal fixation anatomic alignment fracture line consolidation obliteration consistent with a healed ankle fracture Assessment 42-year-old male with right healed tibial shaft fracture and ankle fracture Plan Discussed with patient that I want him to continue to follow with Dr. Swenson x-rays do appear that this injury is completely healed. If he does have continued pain about the tibia patient may benefit from a CT scan to evaluate complete union. X-rays do appear that this fracture is completely united however patient is hoping for some reassurance. Discussed with him that these injuries can take years to completely resolve and potentially never well. He did suffer a severe injury and that there are residual deficits as result. Discussed with patient that he is theresa to have his leg. Discussed with Tmo that I want him to return if he has issues with his leg or feels like he is not making progress with his primary surgeon. I did discuss the patient from a continuity of care standpoint that it is best that the treating surgeon take care of this issue. He agrees with this and is happy with the care receiving by Dr. Swenson. Active Problems Problems Ankle pain, left (719.47) (M25.572) Pain in left tibia (733.90) (M89.8X6) Results/Data Xray Ankle 3 [id number] 04:13PMObey Gauthier III Test NameResultFlagReference Xray Ankle 3 View(Report) FINAL REPORT Interpreted by: OBEY GAUTHIER EDWARD, MD 05/02/23 17:01 Patient Name: TOM ROONEY STUDY: ANKLE, COMPLETE, MIN 3 VIEWS; Left; 05/02/2023 4:13 pm INDICATION: pain M25.571: Ankle pain, right. COMPARISON: None. ACCESSION NUMBER(S): [id number] ORDERING CLINICIAN: OBEY GAUTHIER FINDINGS: Multiple views left ankle: Status post open reduction internal fixation: Healed ankle fracture in near anatomic alignment. Abundant bridging bone formation of tibial shaft fracture. IMPRESSION: Healed tibial shaft fracture, fibular shaft fracture ankle fracture Electronically signed by: OBEY GAUTHIER 05/02/23 17:01 Xray Tibia + Fibula 2 [id number] 04:13PMObey Gauthier III Test NameResultFlagReference Xray Tibia + Fibula 2 View(Report) FINAL REPORT Interpreted by: OBEY GAUTHIER EDWARD, MD 05/02/23 17:00 Patient Name: TOM ROONEY STUDY: TIBIA ; Left; 05/02/2023 4:13 pm INDICATION: pain M89.8X6: Pain in left tibia. COMPARISON: None. ACCESSION NUMBER(S): [id number] ORDERING CLINICIAN: OBEY GAUTHIER FINDINGS: Two views left tib fib: Healed mid shaft tibia fracture status post intramedullary nailing abundant bridging bone formation consistent with a healed tibial shaft fracture and fibula fracture. IMPRESSION: Healed mid shaft tibia and fibula fracture Electronically signed by: OBEY GAUTHIER 05/02/23 17:00 Signatures Electronically signed by : Obey Gauthier III, MD; May 02 2023 5:28PM EST (Author) Normal [facility] 05-02-2023 XR Ankle 3 Views Normal -[facility] Work Phone: XR Tibia and Fibula - left 2 Views Normal -[place] [facility] Work Phone: TIBIAon 05-02-2023 TIBIA Patient Name: TOM ROONEY STUDY: TIBIA ; Left; 05/02/2023 4:13 pm INDICATION: pain M89.8X6: Pain in left tibia. COMPARISON: None. ACCESSION NUMBER(S): [id number] ORDERING CLINICIAN: OBEY GAUTHIER FINDINGS: Two views left tib fib: Healed mid shaft tibia fracture status post intramedullary nailing abundant bridging bone formation consistent with a healed tibial shaft fracture and fibula fracture. IMPRESSION: Healed mid shaft tibia and fibula fracture Electronically signed by: OBEY GAUTHIER MD [facility] X[facility] Femur - right 2 Viewson 0 04-27-2023 EXAMINATION: XR FEMU R RIGHT MINIMUM 2 VIEWSPRO/RT 04/27/2023 10:51 AM CLINICAL HISTORY: fu ASSOCIATED DIAGNOSIS: Closed displaced spiral fracture of shaft of right femur with routine healing, subsequent encounter ORDERING PROVIDER: CHINYERE LEON NOTE: COMPARISON: XR RT FEMUR MIN 2 VIEWS 04/05/2022, 10:59 AM FINDINGS: There is orthopedic hardware -- intramedullary miles with screw fixation proximally and distally -- providing internal fixation for previously noted proximal to mid femoral shaft fracture, which is radiographically healed. The overall alignment appears similar given technical differences. IMPRESSION: [Status post ORIF with alignment grossly maintained and hardware intact.] Alignment is unchanged and essentially anatomic Right femur MACRO: None RADIOLOGY Eleazar Osman MD - 04/27/2023 EXAMINATION: XR FEMUR RIGHT MINIMUM 2 VIEWSPRO/RT 04/27/2023 10:51 AM CLINICAL HISTORY: fu ASSOCIATED DIAGNOSIS: Closed displaced spiral fracture of shaft of right femur with routine healing, subsequent encounter ORDERING PROVIDER: CHINYERE LEON NOTE: COMPARISON: XR RT FEMUR MIN 2 VIEWS 04/05/2022, 10:59 AM FINDINGS: There is orthopedic hardware -- intramedullary miles with screw fixation proximally and distally -- providing internal fixation for previously noted proximal to mid femoral shaft fracture, which is radiographically healed. The overall alignment appears similar given technical differences. IMPRESSION: [Status post ORIF with alignment grossly maintained and hardware intact.] Alignment is unchanged and essentially anatomic Right femur MACRO: None [facility] Radiology Study observation (narrative) [facility] XR Femur - right 2 ViewsOrde red By: Eleazar Osman on 04-27-2023 [facility] Work Phone: XR Tibia and Fibula - left V iewson 04-27-2023 EXAMINATION: XR TIBI A LEFT 2 VIEWSPRO/LT 04/27/2023 10:51 AM CLINICAL HISTORY: fu ASSOCIATED DIAGNOSIS: Closed trimalleolar fracture of ankle with high fibular fracture Closed trimalleolar fracture of ankle with high fibular fracture ORDERING PROVIDER: CHINYERE LEON NOTE: COMPARISON: XR TIBIA LEFT 2 VIEWS 04/05/2022, 11:00 AM FINDINGS: There is orthopedic hardware -- screw plate device and screws -- providing internal fixation for previously noted distal tibia and fibula shaft fractures, as well as an intramedullary miles with screw fixation within the femur.. The overall alignment appears similar given technical differences. IMPRESSION: [Status post ORIF with alignment grossly maintained and hardware intact.] There has been healing of fractures since the prior study. Alignment is essentially anatomic. Left tibia and fibula MACRO: None RADIOLOGY Eleazar Osman MD - 04/27/2023 EXAMINATION: XR TIBIA LEFT 2 VIEWSPRO/LT 04/27/2023 10:51 AM CLINICAL HISTORY: fu ASSOCIATED DIAGNOSIS: Closed trimalleolar fracture of ankle with high fibular fracture Closed trimalleolar fracture of ankle with high fibular fracture ORDERING PROVIDER: CHINYERE CURRY TECHNCARIE NOTE: COMPARISON: XR TIBIA LEFT 2 VIEWS 04/05/2022, 11:00 AM FINDINGS: There is orthopedic hardware -- screw plate device and screws -- providing internal fixation for previously noted distal tibia and fibula shaft fractures, as well as an intramedullary miles with screw fixation within the femur.. The overall alignment appears similar given technical differences. IMPRESSION: [Status post ORIF with alignment grossly maintained and hardware intact.] There has been healing of fractures since the prior study. Alignment is essentially anatomic. Left tibia and fibula MACRO: None [facility] Radiology Study observation (narrative) [facility] CHEMISTRYOrdered By: SYSTEM SYSTEM on 02-12-2023 Anion gap [Moles/Vol] 13 mmol/L Normal 6 - 16 mEq/L [facility] Calcium [Mass/Vol] 8.9 mg/dL Normal 8.9 - 11. 1 mg/dL [facility] Chloride [Moles/Vol] 103 mmol/L Normal 101 - 1 11 mmol/L [facility] CO2 [Moles/Vol] 25 mmol/L Normal 21 - 31 mmol/L [facility] Creatinine [Mass/Vol] 1.0 mg/dL Normal 0.5 - 1.3 mg/dL [facility] GFR/1.73 sq M.predicted among blacks MDRD (S/P/Bld) [Vol rate/Area] mL/min/1.73 m2 Normal >=59mL/min /1.73 m2 [facility] Chem S GFR/1.73 sq M.predicted among non-blacks MDRD (S/P/Bld) [Vol rate/Area] mL/min/1.73 m2 Normal >=59mL/min /1.73 m2 [facility] S Glucose [Mass/Vol] 96 mg/dL Normal 55 - 199 mg/dL [facility] Potassium [Moles/Vol] 3.6 mmol/L Normal 3.5 - 5.3 mmol/L [facility] Sodium [Moles/Vol] 137 mmol/L Normal 135 - 145 mmol/L [facility] Urea nitrogen [Mass/Vol] 14 mg/dL Normal 5 - 21 mg/dL [facility] Urea nitrogen/Creatinine [Mass ratio] 14 mg/mg Normal 10 - 20 [facility] HEMATOLOGYOrdered By: SYSTEM SYSTEM on 02-12-2023 Basophils/100 WBC (Bld) 0.9 % Normal 0.0 - 2.0 % [facility] Basophils/Leukocytes Auto (Bld) [Pure # fraction] 0.1 E9/L Normal 0.0 - 0.2 E9/L [facility] Eosinophils/100 WBC (Bld) 2.1 % Normal 0.0 - 8.0 % [facility]Auto[facility] Eosinophils/Leukocytes Auto (Bld) [Pure # fraction] 0.2 E9/L Normal 0.0 - 0.5 E9/L [facility] Lymphocytes/100 WBC (Bld) 27.2 % Normal 14.0 - 50.0 % [facility] Lymphocytes/Leukocytes Auto (Bld) [Pure # fraction] 2.0 E9/L Normal 1.0 - 4.0 E9/L [facility]SS Monocytes/100 WBC (Bld) 9.4 % Normal 4.0 - 14.0 % [facility]eAutoSS Monocytes/Leukocytes Auto (Bld) [Pure # fraction] 0.7 E9/L Normal 0.2 - 1.0 E9/L [facility] Neutrophils/100 WBC (Bld) 60.4 % Normal 36.0 - 75.0 % [facility] Neutrophils/Leukocytes Auto (Bld) [Pure # fraction] 4.4 E9/L Normal 2.0 - 7.5 E9/L [facility] HEMATOLOGYOrdered By: Halle Smith on 02-12-2023 Erythrocyte distribution width (RBC) [Ratio] 13.6 % Normal 10.9 - 14.2 % [facility] Hematocrit (Bld) [Volume fraction] 44.7 % Normal 37.7 - 49.0 % [facility] Hemoglobin (Bld) [Mass/Vol] 15.1 g/dL Normal 13.5 - 17.5 gm/dL [facility] MCH (RBC) [Entitic mass] 29.4 pg Normal 27.0 - 34.0 pg [facility] MCHC (RBC) [Mass/Vol] 33.9 g/dL Normal 31.4 - 36.0 gm/dL [facility] MCV (RBC) [Entitic vol] 86.7 fL Normal 80.0 - 100.0 fL [facility] Platelet mean volume (Bld) [Entitic vol] 9.9 fL Normal 6.4 - 10.8 fL [facility] Platelets (Bld) [#/Vol] 182.0 E9/L Normal 150.0 - 500.0 E9/L [facility] RBC (Bld) [#/Vol] 5.2 E12/L Normal 4.3 - 5.9 E12/L [facility] WBC corrected for nucl RBC Auto (Bld) [#/Vol] 7.3 E9/L Normal 4.0 - 11.0 E9/L [facility] MICRO OTHER TESTSOrdered By: Florentino Hobbs on 02-12-2023 Influenzae A Ag Negative (02/12/23 9:25 PM) Normal Negative [facility] Influenzae B Ag Negative (02/12/23 9:25 PM) Normal Negative [facility] Rapid COV Int NEG [place] (02/12/23 9:25 PM) Normal [facility] Rapid COV Int POS [place]l [place] (02/12/23 9:25 PM) Normal [facility] SARS-CoV+SARS-CoV-2 (COVID-19) Ag IA.rapid Ql (Resp) Not Detected (02/12/23 9:25 PM) Normal Not Detected [facility] Quick Strepon 02-07-2023 S. pyogenes Org specific cx Ql (Throat) Positive Modti Other Quick Strep Modti Other No Panel Informationon 04-05 EXAMINATION: XR TIBI A LEFT 2 VIEWSPRO/LT CLINICAL HISTORY: Reason for Exam: fu ASSOCIATED DIAGNOSIS: Closed displaced comminuted fracture of shaft of left tibia, initial encounter TECHNOLOGISTS NOTE: COMPARISON: 11/30/2021 FINDINGS: IMPRESSION: Fusion hardware is intact. No acute fracture or malalignment. No significant degenerative change. Unremarkable soft tissues. XR TIBIA LEFT 2 VIEWS MACRO: None Gabriel Chaudhari M D - 04/05/2022 EXAMINATION: XR TIBIA LEFT 2 VIEWSPRO/LT CLINICAL HISTORY: Reason for Exam: fu ASSOCIATED DIAGNOSIS: Closed displaced comminuted fracture of shaft of left tibia, initial encounter TECHNOLOGISTS NOTE: COMPARISON: 11/30/2021 FINDINGS: IMPRESSION: Fusion hardware is intact. No acute fracture or malalignment. No significant degenerative change. Unremarkable soft tissues. XR TIBIA LEFT 2 VIEWS MACRO: None [facility] EXAMINATION: XR RT F EMUR MIN 2 VIEWSPRO/RT CLINICAL HISTORY: Reason for Exam: fu ASSOCIATED DIAGNOSIS: Closed displaced spiral fracture of shaft of right femur with routine healing, subsequent encounter TECHNOLOGISTS NOTE: COMPARISON: 11/30/2021 FINDINGS: IMPRESSION: Fusion hardware is intact. No acute fracture or malalignment. No significant degenerative change. Unremarkable soft tissues. XR RT FEMUR MIN 2 VIEWS MACRO: Gabriel Adams M D - 04/05/2022 EXAMINATION: XR RT FEMUR MIN 2 VIEWSPRO/RT CLINICAL HISTORY: Reason for Exam: fu ASSOCIATED DIAGNOSIS: Closed displaced spiral fracture of shaft of right femur with routine healing, subsequent encounter TECHNOLOGISTS NOTE: COMPARISON: 11/30/2021 FINDINGS: IMPRESSION: Fusion hardware is intact. No acute fracture or malalignment. No significant degenerative change. Unremarkable soft tissues. XR RT FEMUR MIN 2 VIEWS MACRO: None [facility] Radiology Study observation (narrative) [facility] Radiology Study observation (narrative) [facility] No Panel InformationOrdered By: Gabriel Samaniego on 04-05-2022 [facility] Work Phone: CBC AUTO DIFFon 02-20-2022 BASO # 0.1 103/ul Normal 0.0-0.1 [facility] Comment on above: Performed By: #### C BC #### [facility] [address] [address] [address] Aby Wiggins Basophils/100 WBC (Bld) 0.9 % Normal 0.2-2.0 [facility] Comment on above: Performed By: #### C BC #### [facility] [address] [address] [address] Aby Wiggins EO # 0.1 103/ul Normal 0.0-0.7 [facility] Comment on above: Performed By: #### C BC #### [facility] [address] [address] [address] Aby Wiggins Eosinophils/100 WBC (Bld) 1.4 % Normal 0.9-7.0 [facility] Comment on above: Performed By: #### C BC #### [facility] [address] [place] [address] Dr. Aby Wiggins Erythrocyte distribution width (RBC) [Ratio] 13.2 % Normal 11.0-15.0 [facility] Comment on above: Performed By: #### C BC #### [facility] [address] [place] [address] Dr. Aby Wiggins Hematocrit (Bld) [Volume fraction] 47.7 % Normal 42.0-54.0 [facility] Comment on above: Performed By: #### C BC #### [facility] [address] [place] [address] Dr. Aby Wgigins Hemoglobin (Bld) [Mass/Vol] 15.3 g/dL Normal 14.0-18.0 [facility] Comment on above: Performed By: #### C BC #### [facility] [address] [place] [address] Dr. Aby Wiggins IG # 0.02 10e3/ul Normal 0.00-0.03 [facility] Comment on above: Performed By: #### C BC #### [facility] [address] [place] [address] Dr. Aby Wiggins IG % 0.4 % Normal 0.0-0.5 [facility] Comment on above: Performed By: #### C BC #### [facility] [address] [place] [address] Dr. Aby Wiggins LYMPH # 1.5 103/ul Normal 1.2-3.8 [facility] Comment on above: Performed By: #### C BC #### [facility] [address] [place] [address] Dr. Aby Wiggins Lymphocytes/100 WBC (Bld) 27.3 % Normal 20.5-60.0 [facility] Comment on above: Performed By: #### C BC #### [facility] [address] [place] [address] Dr. Aby Wiggins MANUAL DIFF REQ NO Normal [facility] Comment on above: Performed By: #### C BC #### [facility] [address] [place] [address] Dr. Aby Wiggins MCH (RBC) [Entitic mass] 28.7 pg Normal 25.9-34.0 [facility] Comment on above: Performed By: #### C BC #### [facility] [address] [place] [address] Dr. Aby Wiggins MCHC (RBC) [Mass/Vol] 32.1 g/dL Normal 29.9-35.2 [facility] Comment on above: Performed By: #### C BC #### [facility] [address] [place] [address] Dr. Aby Wiggins MCV (RBC) [Entitic vol] 89.5 fL Normal 80.0-94.0 [facility] Comment on above: Performed By: #### C BC #### [facility] [address] [place] [address] Dr. Aby Wiggisn MONO # 0.4 103/ul Normal 0.3-0.8 [facility] Comment on above: Performed By: #### C BC #### [facility] [address] [place] [address] Dr. Aby Wiggins Monocytes/100 WBC (Bld) 6.7 % Normal 1.7-12.0 [facility] Comment on above: Performed By: #### C BC #### [facility] [address] [place] [address] Dr. Aby Wiggins NEUT # 3.6 103/ul Normal 1.4-6.5 [facility] Comment on above: Performed By: #### C BC #### [facility] [address] [place] [address] Dr. Aby Wiggins Neutrophils/100 WBC (Bld) 63.3 % Normal 43.0-75.0 [facility] Comment on above: Performed By: #### C BC #### [facility] [address] [place] [address] Dr. Aby Wiggins Platelet mean volume (Bld) [Entitic vol] 11.2 fL Normal 9.5-13.5 [facility] Comment on above: Performed By: #### C BC #### [facility] [address] [place] [address] Dr. Aby Wiggins PLT 200 103/ul Normal 150-450 [facility] Comment on above: Performed By: #### C BC #### [facility] [address] [place] [address] Dr. Aby Wiggins RBC 5.33 106/ul Normal 4.70-6.10 [facility] Comment on above: Performed By: #### C BC #### [facility] [address] [place] [address] Dr. Aby Wiggins WBC 5.6 103/ul Normal 4.0-11.0 [facility] Comment on above: Performed By: #### C BC #### [facility] [address] [place] [address] Dr. Aby Wiggins FREE THYROXINE INDEX T7on FTI 1.91 Normal [facility] Comment on above: Performed By: #### C MP, T7, TSH, LIPID #### [facility] [address] [place] [address] Dr. Aby Wiggins T3U 33.0 % Normal 23.5-40.5 [facility] Comment on above: Performed By: #### C MP, T7, TSH, LIPID #### [facility] [address] [address] [address] Aby Wiggins T4 [Mass/Vol] 5.80 ug/dL Normal 5.53-11.00 [facility] Comment on above: Performed By: #### C MP, T7, TSH, LIPID #### [facility] [address] [place] [address] Dr. Aby Wiggins GLYCOHEMOGLOBIN A1Con 2021 ADA RECOMMENDATION ADA THERAPEUTIC TARG ET 6.0 - 7.0 ACTION SUGGESTED > 7.0 Normal [facility] Comment on above: Performed By: #### A 1C #### [facility] [address] [place] [address] Dr. Aby Wiggins Glucose [Mass/Vol] 108 mg/dL Normal [facility] Comment on above: Performed By: #### A 1C #### [facility] [address] [place] [address] Dr. Aby Wiggins HbA1c (Bld) [Mass fraction] 5.4 % Normal <=6.0 [facility] Comment on above: Performed By: #### A 1C #### [facility] [address] [place] [address] Dr. Aby Wiggins LIPID PROFILEon 02-20-2022 CHOL-HDL RATIO NORM SEE BELOW Normal [facility] Comment on above: Result Comment: 3.3 - 4.4 LOW RISK 4.4 - 7.1 AVERAGE RISK 7.1 - 11.0 MODERATE RISK >11.0 HIGH RISK Performed By: #### C MP, T7, TSH, LIPID #### [facility] [address] [place] [address] Dr. Aby Wiggins Cholesterol [Mass/Vol] 177 mg/dL Normal <=200 Th [facility] Comment on above: Performed By: #### C MP, T7, TSH, LIPID #### [facility] [address] [place] [address] Dr. Aby Wiggins Cholesterol in HDL [Mass/Vol] 50 mg/dL Normal 40-60 [facility] Comment on above: Performed By: #### C MP, T7, TSH, LIPID #### [facility] [address] [place] [address] Dr. Aby Wiggins Cholesterol in LDL [Mass/Vol] 114.2 mg/dL Normal [facility] Comment on above: Performed By: #### C MP, T7, TSH, LIPID #### [facility] [address] [address] [address] Aby Wiggins Cholesterol.total/Chol esterol in HDL [Mass ratio] 3.5 {ratio} Normal [facility] Comment on above: Performed By: #### C MP, T7, TSH, LIPID #### [facility] [address] [address] [address] Aby Wiggins HDL NORMAL > or = 60 mg/dl - LO W CARDIOVASCULAR RISK <40 mg/dl - HIGH CARDIOVASCULAR RISK Normal [facility] Comment on above: Performed By: #### C MP, T7, TSH, LIPID #### [facility] [address] [place] [address] Dr. Aby Wiggins LDL CALC NORMAL SEE BELOW Normal [facility] Comment on above: Result Comment: <100 mg/dl OPTIMAL 100 - 129 mg/dl NEAR OR ABOVE OPTIMAL 130 - 159 mg/dl BORDERLINE HIGH 160 - 189 mg/dl HIGH >190 mg/dl VERY HIGH Performed By: #### C MP, T7, TSH, LIPID #### [facility] [address] [address] [address] Aby Wiggins Triglyceride [Mass/Vol] 64 mg/dL Normal <=150 [facility] Comment on above: Performed By: #### C MP, T7, TSH, LIPID #### [facility] [address] [address] [address] Aby Wiggins VLDL CALC 12.8 mg/dL Normal [facility] Comment on above: Performed By: #### C MP, T7, TSH, LIPID #### [facility] [address] [address] [address] Aby Wiggins PROF 14(COMP METB)on 022 Albumin [Mass/Vol] 4.1 g/dL Normal 3.4-5.0 [facility] Comment on above: Performed By: #### C MP, T7, TSH, LIPID #### [facility] [address] [place] [address] Dr. Aby Wiggins Albumin/Globulin [Mass ratio] 1.1 {ratio} Normal [facility] Comment on above: Performed By: #### C MP, T7, TSH, LIPID #### [facility] [address] [place] [address] Dr. Aby Wiggins ALP [Catalytic activity/Vol] 75 U/L Normal 46-116 [facility] Comment on above: Performed By: #### C MP, T7, TSH, LIPID #### [facility] [address] [place] [address] Dr. Aby Wiggins ALT [Catalytic activity/Vol] 30 U/L Normal 16-63 [facility] Comment on above: Performed By: #### C MP, T7, TSH, LIPID #### [facility] [address] [place] [address] Dr. Aby Wiggins Anion gap [Moles/Vol] 11.9 mmol/L Normal [facility] Comment on above: Performed By: #### C MP, T7, TSH, LIPID #### [facility] [address] [place] [address] Dr. Aby Wiggins AST [Catalytic activity/Vol] 15 U/L Normal 15-37 [facility] Comment on above: Performed By: #### C MP, T7, TSH, LIPID #### [facility] [address] [place] [address] Dr. Aby Wiggins Bilirubin [Mass/Vol] 0.4 mg/dL Normal 0.2-1.3 [facility] Comment on above: Performed By: #### C MP, T7, TSH, LIPID #### [facility] [address] [place] [address] Dr. Aby Wiggins Calcium [Mass/Vol] 8.7 mg/dL Normal 8.5-10.1 [facility] Comment on above: Performed By: #### C MP, T7, TSH, LIPID #### [facility] [address] [place] [address] Dr. Aby Wiggins Chloride [Moles/Vol] 105 mmol/L Normal 98-107 [facility] Comment on above: Performed By: #### C MP, T7, TSH, LIPID #### [facility] [address] [address] [address] Aby Wiggins CO2 [Moles/Vol] 28.8 mmol/L Normal 22.0-30.0 [facility] Comment on above: Performed By: #### C MP, T7, TSH, LIPID #### [facility] [address] [address] [address] Aby Wiggins Creatinine [Mass/Vol] 0.96 mg/dL Normal 0.66-1.25 [facility] Comment on above: Performed By: #### C MP, T7, TSH, LIPID #### [facility] [address] [place] [address] Dr. Aby Wiggins EGFR-AF AUSTRIAN =60 Normal >=60 [facility] Comment on above: Performed By: #### C MP, T7, TSH, LIPID #### [facility] [address] [place] [address] Dr. Aby Wiggins EGFR-NON AF AUSTRIAN >60 Normal >=60 [facility] Comment on above: Performed By: #### C MP, T7, TSH, LIPID #### [facility] [address] [address] [address] Aby Wiggins Globulin (S) [Mass/Vol] 3.6 g/dL Normal [facility] Comment on above: Performed By: #### C MP, T7, TSH, LIPID #### [facility] [address] [address] [address] Aby Wiggins Glucose [Mass/Vol] 96 mg/dL Normal 74-106 [facility] Comment on above: Performed By: #### C MP, T7, TSH, LIPID #### [facility] [address] [address] [address] Aby Wiggins Potassium [Moles/Vol] 4.7 mmol/L Normal 3.4-5.0 [facility] Comment on above: Performed By: #### C MP, T7, TSH, LIPID #### [facility] [address] [place] [address] Dr. Aby Wiggins Protein [Mass/Vol] 7.7 g/dL Normal 6.1-8.2 [facility] Comment on above: Performed By: #### C MP, T7, TSH, LIPID #### [facility] [address] [place] [address] Dr. Aby Wiggins Sodium [Moles/Vol] 141 mmol/L Normal 137-145 [facility] Comment on above: Performed By: #### C MP, T7, TSH, LIPID #### [facility] [address] [place] [address] Dr. Aby Wiggins Urea nitrogen [Mass/Vol] 9.0 mg/dL Normal 7.0-18.0 [facility] Comment on above: Performed By: #### C MP, T7, TSH, LIPID #### [facility] [address] [place] [address] Dr. Aby Wiggins Urea nitrogen/Creatinine [Mass ratio] 9.4 mg/mg Normal [facility] Comment on above: Performed By: #### C MP, T7, TSH, LIPID #### [facility] [address] [place] [address] Dr. Aby Wiggins TSHon 02-20-2022 TSH 1.096 uIU/mL Normal 0.470-4.68 0 [facility] Comment on above: Performed By: #### C MP, T7, TSH, LIPID #### [facility] [address] [place] [address] Dr. Aby Wiggins TSH RANGE SEE BELOW Normal [facility] Comment on above: Result Comment: <0.3 4 UIU/ml HYPERTHYROID 0.34-5.60 UIU/ml EUTHYROID >5.60 UIU/ml HYPOTHYROID Performed By: #### C MP, T7, TSH, LIPID #### [facility] [address] [place] [address] Dr. Aby Wiggins Vital Signs Date Time Vital Sign Value Performing Clinician Facility 06-27-2023 20:22-0400 Body height 187.96 cm MD Jovita Martinez Work Phone: [facility] 06-27-2023 20:22-0400 Body temperature 97.6 [degF] MD Jovita Martinez Work Phone: [facility] 06-27-2023 20:22-0400 Body weight 83.4 kg MD Jovita Martinez Work Phone: [facility] 06-27-2023 20:22-0400 Diastolic blood pressure 74 mm[Hg] MD Jovita Martinez Work Phone: [facility] 06-27-2023 20:22-0400 Heart rate 52 /min MD Jovita Martinez Work Phone: [facility] 06-27-2023 20:22-0400 Respiratory rate 16 /min MD Jovita Martinez Work Phone: [facility] 06-27-2023 20:22-0400 SaO2% (BldA) [Mass fraction] 100 % MD Jovita Martinez Work Phone: [facility] 06-27-2023 20:22-0400 Systolic blood pressure 140 mm[Hg] MD Jovita Martinez Work Phone: [facility] 02-12-2023 22:31-0400 Diastolic blood pressure 83 mm[Hg] Kaylinn Dokken [facility] 02-12-2023 22:31-0400 Heart rate 60 /min Kaylinn Dokken [facility] 02-12-2023 22:31-0400 Mean blood pressure 96 mm[Hg] Kaylinn Dokken [facility] 02-12-2023 22:31-0400 Respiratory rate 20 /min Kaylinn Dokken [facility] 02-12-2023 22:31-0400 SaO2% (BldA) [Mass fraction] 97 % Kaylinn Dokken [facility] 02-12-2023 22:31-0400 Systolic blood pressure 122 mm[Hg] Kaylinn Dokken [facility] 02-12-2023 20:49-0400 Body temperature 97.7 [degF] Emer[facility] Ar[facility] 02-12-2023 20:49-0400 Diastolic blood pressure 75 mm[Hg] Rachanan Azucenaen [facility] 02-12-2023 20:49-0400 Heart rate 59 /min [facility] 02-12-2023 20:49-0400 Respiratory rate 18 /min [facility] 02-12-2023 20:49-0400 SaO2% (BldA) [Mass fraction] 99 % [facility] 02-12-2023 20:49-0400 Systolic blood pressure 130 mm[Hg] [facility] 02-07-2023 17:00-0400 Body height 185.42 cm Kaykay Jimenez Other [facility] [email or web address] Other 02-07-2023 17:00-0400 Body mass index (BMI) [Ratio] 22.43 kg/m2 Kaykay Jimenez Other [employer] Other 02-07-2023 17:00-0400 Body temperature 98 [degF] Kaykay Barbara Other [employer] Other 02-07-2023 17:00-0400 Body weight 77.11 kg Kaykay Jimenez Other [employer] Other 02-07-2023 17:00-0400 Respiratory rate 18 /min Kaykay Kenyonmond Other [employer] Other 02-07-2023 17:00-0400 SaO2% (BldA) [Mass fraction] 96 % Kaykay Jimenez Other [employer] Other 01-14-2023 08:58-0500 Body height 188 cm Mauricio Cowan MD Work Phone: [employer] 01-14-2023 08:58-0500 Body mass index (BMI) [Ratio] 22.21 kg/m2 Mauricio Cowan MD Work Phone: [employer] 01-14-2023 08:58-0500 Body temperature 98.71 [degF] Mauricio Cowan MD Work Phone: [employer] 01-14-2023 08:58-0500 Body weight 78.47 kg Mauricio Cowan MD Work Phone: [employer] 01-14-2023 08:58-0500 Diastolic blood pressure 72 mm[Hg] Mauricio Cowan MD Work Phone: [employer] 01-14-2023 08:58-0500 Heart rate 60 /min Mauricio Cowan MD Work Phone: [employer] 01-14-2023 08:58-0500 Respiratory rate 18 /min Mauricio Cowan MD Work Phone: [employer] 01-14-2023 08:58-0500 SaO2% (BldA) [Mass fraction] 99 % Mauricio Cowan MD Work Phone: [employer] 01-14-2023 08:58-0500 Systolic blood pressure 126 mm[Hg] Mauricio Cowan MD Work Phone: [employer] 10-13-2022 08:25-0500 Body height 190.5 cm Mauricio Cowan MD Work Phone: [employer] 10-13-2022 08:25-0500 Body mass index (BMI) [Ratio] 21.62 kg/m2 Mauricio Cowan MD Work Phone: [employer] 10-13-2022 08:25-0500 Body temperature 97.2 [degF] Mauricio Cowan MD Work Phone: [employer] 10-13-2022 08:25-0500 Body weight 78.47 kg Mauricio Cowan MD Work Phone: [employer] 10-13-2022 08:25-0500 Diastolic blood pressure 62 mm[Hg] Mauricio Cowan MD Work Phone: [employer] 10-13-2022 08:25-0500 Heart rate 69 /min Mauricio Cowan MD Work Phone: [employer] 10-13-2022 08:25-0500 Respiratory rate 18 /min Mauricio Cowan MD Work Phone: [employer] 10-13-2022 08:25-0500 SaO2% (BldA) [Mass fraction] 100 % Mauricio Cowan MD Work Phone: [employer] 10-13-2022 08:25-0500 Systolic blood pressure 113 mm[Hg] Mauricio Cowan MD Work Phone: [employer] 10-06-2021 14:00-0500 Body height 185.42 cm Margaux Vincent Other [employer] Other 10-06-2021 14:00-0500 Diastolic blood pressure 70 mm[Hg] Margaux Vincent Other [employer] Other 10-06-2021 14:00-0500 SaO2% (BldA) [Mass fraction] 99 % Margaux Vincent Other [employer] Other 10-06-2021 14:00-0500 Systolic blood pressure 124 mm[Hg] Margaux Vincent Other [employer] Other Encounters Encounter Date Encounter Type Care Provider Facility Start: 12-05-2024 End: 12-05-2024 ambulatory Eleazar MIMS Facility:[facility] Start: 11-13-2024 End: 11-14-2024 Office outpatient visit 25 minutes Sofya Dsouza POULTRY KILLER-AQUATICS ASSISTANT DEPARTMENT HEAD Work Phone: [facility] Comment on above: Neuropathic pain (Pr imary Dx); (BWC) Displaced comminuted fracture of shaft of left tibia, subsequent encounter for closed fracture with delayed healing; Pain syndrome, chronic; Encounter for medication monitoring; Pain in left jimenez; Lumbar radiculopathy Start: 11-13-2024 End: 11-14-2024 ambulatory UNKNOWN PROVIDER [facility] Start: 11-05-2024 ambulatory Eleazar MIMS Facility:[facility] Start: 08-10-2024 End: 08-10-2024 Office outpatient visit 25 minutes Sofya Dsouza POULTRY KILLER-AQUATICS ASSISTANT DEPARTMENT HEAD Work Phone: [facility] Comment on above: (BWC) Displaced comm inuted fracture of shaft of left tibia, subsequent encounter for closed fracture with delayed healing (Primary Dx); Neuropathic pain; Pain syndrome, chronic; Encounter for medication monitoring Start: 08-10-2024 End: 08-10-2024 ambulatory SOFYA DSOUZA [facility] Start: 07-16-2024 End: 07-16-2024 ambulatory SOFYA DSOUZA Facility:[facility] Start: 07-16-2024 End: 07-16-2024 Subsequent hospital visit by physician Phe Ip/Op X-Ray 6 [facility] Comment on above: Pain in left jimenez Start: 07-09-2024 End: 07-09-2024 ambulatory Not Available Start: 05-04-2024 End: 05-04-2024 Office outpatient visit 25 minutes Sofya Dsouza POULTRY KILLER-AQUATICS ASSISTANT DEPARTMENT HEAD [facility] Comment on above: (BWC) Displaced comm inuted fracture of shaft of left tibia, subsequent encounter for closed fracture with delayed healing (Primary Dx); Neuropathic pain; Pain syndrome, chronic Start: 05-04-2024 End: 05-04-2024 ambulatory SOFYA DSUOZA [facility] Start: 02-19-2024 Letter encounter [facility] Work Phone: Start: 02-03-2024 End: 02-03-2024 Office outpatient visit 25 minutes Sofya Dsouza POULTRY KILLER-AQUATICS ASSISTANT DEPARTMENT HEAD Other [facility] Comment on above: Neuropathic pain; Pain syndrome, chronic; (BWC) Displaced comminuted fracture of shaft of left tibia, subsequent encounter for closed fracture with delayed healing Start: 02-03-2024 End: 02-03-2024 ambulatory SOFYA DSOUZA [facility] Start: 11-11-2023 End: 11-11-2023 Office outpatient visit 25 minutes Sofya Dsouza POULTRY KILLER-AQUATICS ASSISTANT DEPARTMENT HEAD [facility] Comment on above: (BWC) Displaced comm inuted fracture of shaft of left tibia, subsequent encounter for closed fracture with delayed healing (Primary Dx); Neuropathic pain; Pain syndrome, chronic Start: 08-23-2023 End: 08-23-2023 Office outpatient visit 25 minutes Sofya Dsouza POULTRY KILLER-AQUATICS ASSISTANT DEPARTMENT HEAD [facility] Comment on above: (BWC) Displaced comm inuted fracture of shaft of left tibia, subsequent encounter for closed fracture with delayed healing (Primary Dx); Neuropathic pain; Pain syndrome, chronic Start: 06-27-2023 End: 06-28-2023 Emergency department patient visit Dulce Fierro Facility:[facility] Start: 06-27-2023 End: 06-27-2023 Emergency department patient visit MD Jovita Martinez Work Phone: [facility] Work Phone: Start: 05-02-[address] [place] III Facility:[id number] Start: 05-02-2023 Patient encounter procedure Jovita Martinez [facility] Phone: [facility] Work Phone: Start: 05-02-2023 Letter encounter - - Liss[facility]za [facility] Start: 04-27-2023 Letter encounter Mauricio acosta MD Work Phone: [facility] Start: 04-27-2023 End: 04-27-2023 Office outpatient visit 15 minutes Turner Swenson DO Work Phone: [facility] Comment on above: Closed trimalleolar fracture of ankle with high fibular fracture (Primary Dx); Nerve pain Start: 04-27-2023 End: 04-27-2023 Subsequent hospital visit by physician Phe Op X-Ray 4 [facility] Comment on above: Closed displaced spi ral fracture of shaft of right femur with routine healing, subsequent encounter; Closed trimalleolar fracture of ankle with high fibular fracture Start: 04-26-2023 Letter encounter Chinyere paris PA-C Work Phone: [facility] Start: 02-24-2023 End: 02-24-2023 ambulatory Turnerevy Swenson Facility:[facility] Start: 02-24-2023 End: 02-24-2023 ambulatory MD Jovita Martinez Work Phone: [facility] Work Phone: Start: 02-24-2023 End: 02-24-2023 Discharged Recurring MD Jovita Martinez Work Phone: [facility] Francisco Tai Start: 02-12-2023 End: 02-12-2023 Emergency department patient visit [facility] Start: 02-07-2023 End: 02-07-2023 ambulatory Kaykay Jimenez Other [employer] Other Start: 02-07-2023 Office outpatient vi sit 25 minutes Kaykay Jimenez [employer] [facility] Start: 01-14-2023 End: 01-14-2023 Office outpatient visit 15 minutes Mauricio Cowan MD Work Phone: [facility] Comment on above: Neuropathic pain (Pr imary Dx); Pain syndrome, chronic; (BWC) Displaced comminuted fracture of shaft of left tibia, subsequent encounter for closed fracture with delayed healing; Body mass index (BMI) 22.0-22.9, adult Start: 11-30-2022 Letter encounter Turner valente DO Work Phone: [employer] Start: 10-13-2022 End: 10-13-2022 Office outpatient new 45 minutes Mauricio Cowan MD Work Phone: [facility] Comment on above: Pain syndrome, chron ic (Primary Dx); Neuropathic pain; Body mass index (BMI) 21.0-21.9, adult Start: 08-16-2022 Letter encounter Turner valente DO Work Phone: [facility] Start: 08-16-2022 End: 08-16-2022 Office outpatient visit 15 minutes Ortho Trauma Resident Work Phone: [facility] Comment on above: Paresthesia of left lower extremity (Primary Dx); Critical polytrauma Start: 04-05-2022 End: 04-05-2022 Orders Only Turner Swenson DO Work Phone: [facility] Comment on above: Closed displaced com minuted fracture of shaft of left tibia, initial encounter; Closed displaced spiral fracture of shaft of right femur with routine healing, subsequent encounter Start: 04-05-2022 End: 04-05-2022 Office outpatient visit 15 minutes Turner Swenson DO Work Phone: [facility] Comment on above: Closed displaced com minuted fracture of shaft of left tibia, initial encounter (Primary Dx) Start: 03-29-2022 End: 03-30-[address] JOVITA MARTINEZ Facility:[facility] Start: 03-10-2022 End: 03-11-[address] JOVITA MARTINEZ Facility:[facility] Start: 02-24-2022 Encounter for genera l adult medical examination without abnormal findings DR JOVITA MARTINEZ [facility] Start: 02-20-2022 End: 02-21-[address] JOVITA MARTINEZ Facility:[facility] Start: 02-20-2022 End: 02-21-2022 Encounter for general adult medical examination without abnormal findings DR JOVITA MARTINEZ Facility:[facility] Start: 11-03-2021 End: 11-03-2021 ambulatory Remberto Chapa Other [employer] Other Start: 11-03-2021 Telephone encounter Remberto Chapa [facility] Start: 10-06-2021 End: 10-06-2021 ambulatory Margaux Vincent Other [employer] Other Start: 10-06-2021 Office outpatient vi sit 15 minutes Margaux Vincent [facility] Procedures Date Procedure Procedure Detail Performing Clinician Start: 11-13-2024 Drug screen class list a Sofya Dsouza APRN-AQUATICS ASSISTANT DEPARTMENT HEAD Work Phone: Start: 07-16-2024 Radiologic examinati on tibia & fibula 2 views Sofya Dsouza APRN-AQUATICS ASSISTANT DEPARTMENT HEAD Work Phone: Start: 04-27-2023 End: 04-27-2023 Radiologic examination tibia & fibula 2 views Chinyere Curry PA-C Work Phone: Start: 04-05-2022 Radiologic examinati on tibia & fibula 2 views Turner Swenson DO Work Phone: Start: 04-05-2022 Radiologic examinati on femur minimum 2 views Turner Swenson DO Work Phone: 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) [facility] Plan of Treatment Date Care Activity Detail Author Start: 2032 Shingles (RZV) Vacci ne (1 of 2) Shingles (RZV) Vaccine (1 of 2) [facility] Start: 02-20-2027 [facility] Start: 02-05-2025 End: 02-05-2025 Telemedicine consultation with patient 02/05/2025 3:30 PM EDT Telemedicine [facility] [address] [place] [address] Sofya Dsouza, POULTRY KILLER-AQUATICS ASSISTANT DEPARTMENT HEAD [address] [place] [address] [facility] Start: 11-13-2024 End: 11-13-2025 XR Lumbar spine Views W flexion and W extension XR L-SPINE W/FLEX/EXT MINIMUM 6 VIEWS Imaging Routine Lumbar radiculopathy Expected: 11/13/2024, Expires: 11/13/2025 [facility] Work Phone: Comment on above: Expected: 11/13/2024 , Expires: 11/13/2025 Start: 11-09-2024 End: 11-09-2024 Patient encounter procedure 11/09/2024 2:00 PM EST Office Visit [facility] [address] [place] [address] Sofya Dsouza, POULTRY KILLER-AQUATICS ASSISTANT DEPARTMENT HEAD [address] [place] [address] [facility] Start: 08-28-2024 Influenza vaccination Influenza Vacc ine (#1) [facility] Start: 08-10-2024 End: 08-10-2024 Telemedicine consultation with patient 08/10/2024 1:30 PM EDT Telemedicine [facility] [address] [place] [address] Sofya Dsouza, POULTRY KILLER-AQUATICS ASSISTANT DEPARTMENT HEAD [address] [place] [address] [facility] Start: 07-29-2024 COVID-19 Vaccine ( season) COVID-19 Vaccine () [facility] Start: 07-29-2024 COVID-19 Vaccine ( season) COVID-19 Vaccine ( season) [facility] Start: 07-29-2024 Influenza vaccination Influenza Vacc ine (#1) [facility] Start: 05-04-2024 End: 05-04-2024 Patient encounter procedure 05/04/2024 1:00 PM EDT [facility] [address] [place] [address] Sofya Dsouza, POULTRY KILLER-AQUATICS ASSISTANT DEPARTMENT HEAD [address] [place] [address] [facility] Start: 02-03-2024 End: 02-03-2024 Telemedicine consultation with patient 02/03/2024 4:00 PM EST [facility] [address] [place] [address] Sofya Dsouza, POULTRY KILLER-AQUATICS ASSISTANT DEPARTMENT HEAD [address] [place] [address] [facility] Start: 11-11-2023 End: 11-11-2023 Patient encounter procedure 11/11/2023 1:00 PM EST [facility] [address] [place] [address] Sofya Dsouza, POULTRY KILLER-AQUATICS ASSISTANT DEPARTMENT HEAD [address] [place] [address] [facility] Start: 07-29-2023 COVID-19 Vaccine ( season) COVID-19 Vaccine ( season) [facility] Start: 07-29-2023 Influenza vaccination Influenza Vacc ine (#1) [facility] Start: 06-27-2023 Plain X-ray of right hand XR hand RT min 3V* [facility] Start: 06-27-2023 Plain X-ray of right wrist XR wrist RT min 3V* [facility] Start: 06-27-2023 XR Hand - right GE 3 Views [facility] Start: 06-27-2023 XR Wrist - right GE 3 Views [facility] Start: 05-06-2023 End: 05-06-2023 Patient encounter procedure 05/06/2023 1:00 PM EDT [facility] [address] [place] [address] [facility] Start: 04-27-2023 End: 04-27-2023 Patient encounter procedure 04/27/2023 10:45 AM EDT Office Visit [facility] [address] [place] [address] Turner Swenson DO [address] [facility] [facility] [address] [place] [address] [facility] Start: 04-26-2023 End: 04-26-2024 XR Femur - right 2 Views XR FEMUR RIGHT MINIMUM 2 VIEWS Imaging Routine Closed displaced spiral fracture of shaft of right femur with routine healing, subsequent encounter Expected: 04/26/2023, Expires: 04/26/2024 [facility] Work Phone: Comment on above: Expected: 04/26/2023 , Expires: 04/26/2024 Start: 04-26-2023 End: 04-26-2024 XR Tibia and Fibula - left Views XR TIBIA LEFT 2 VIEWS Imaging Routine Closed trimalleolar fracture of ankle with high fibular fracture Expected: 04/26/2023, Expires: 04/26/2024 [facility] Comment on above: Expected: 04/26/2023 , Expires: 04/26/2024 Start: 04-13-2023 End: 04-13-2023 Patient encounter procedure 04/13/2023 Office Visit Pain & Healing Mauricio Cowan MD [address] [facility] [facility] [address] [place] [address] [facility] Start: 12-15-2022 End: 12-15-2022 Patient encounter procedure 12/15/2022 Office Visit Pain & Healing Mauricio Cowan MD [address] [place] [address] [facility] Start: 08-28-2022 Influenza vaccination Influenza Vacc ine (#1) [facility] Start: 01-28-2022 COVID-19 Vaccine (4 - Booster for Pfizer series) COVID-19 Vaccine (4 - Booster for Pfizer series) [facility] Start: 2017 [facility]: 2009 HPV Vaccine (optiona l start 27-45 years) HPV Vaccine (optional start 27-45 years) [facility] Start: 2001 Hepatitis A (HAV) Va ccine (optional start 19+ years) Hepatitis A (HAV) Vaccine (optional start 19+ years) [facility] Start: 2001 Hepatitis B vaccination Hepati tis B (HBV) Vaccine (1 of 3 - 19+ 3-dose series) [facility] Start: 2000 Hepatitis C screening Hepatitis C An tibody [facility] Start: 2000 Tetanus + diphtheria + acellular pertussis vaccine (product) Tdap Booster [facility] Start: 1982 COVID-19 Vaccine ( formulation) COVID-19 Vaccine ( formulation) [facility] Start: 1982 Hepatitis B vaccination Hepati tis B (HBV) Vaccine (1 of 3 - 3-dose series) [facility] End: 10-27-2023 Electromyography EMG EMG Routine Closed trimalleolar fracture of ankle with high fibular fracture Nerve pain 1 Occurrences starting 04/27/2023 until 10/27/2023 [facility] Work Phone: Comment on above: 1 Occurrences starti ng 04/27/2023 until 10/27/2023 Patient Education Finger Sprain Exercises [facility] Work Phone: Patient referral [facility] Work Phone: Immunizations Immunization Date Immunization Notes Care Provider Oralia soriano 07-09-2024 tuberculin skin test ; purified protein derivative solution, intradermal Phe 6 [facility] 12-03-2021 influenza, injectabl e, quadrivalent, preservative free Turner Messi DO Work Phone: [facility] 12-03-2021 Moderna Monovalent (12+ yrs) COVID-19 vaccine, mRNA, spike protein, LNP, PF, 100 mcg/0.5 mL (BCD=351) Turner Messi DO Work Phone: [facility] 12-03-2021 influenza virus vaccine, unspecified formulation Yellowsmith DO Work Phone: [facility] 04-04-2021 COVID-19, mRNA, LNP- S, PF, 30 mcg/0.3 mL dose Kaylinn Dokken [facility] Comment on above: Reason for Medicatio n: Prophylaxis 03-14-2021 COVID-19, mRNA, LNP- S, PF, 30 mcg/0.3 mL dose Kaylinn Dokken [facility] Comment on above: Reason for Medicatio n: Prophylaxis Payers Date Payer Category Payer [facility] [id number] 2023 Self-pay [id number] 2023 Unknown [id number] 2.16. [id number] 2021 Worker's Compensation 1.2.84 [id number] 2021 Unknown [id number] 2020 Unknown [id number] 1982 Unknown [id number] 2.16.84 [id number] 1982 Unknown [id number] 2.16.84 [id number] 1982 Unknown [id number] 2.16.84 [id number] 1982 Unknown [id number] 2.16.8 [id number] 1982 Unknown [id number] 2.16. [id number] 1982 Unknown [id number] 2.16. [id number] 1982 Unknown [id number] 2.16. [id number] 1982 Unknown [id number] 2.16. [id number] 1982 Unknown [id number] 2.16.8 [id number] 1959 Unknown [id number] Unknown [id number] 2.16.8 [id number] Unknown [id number] 2.16.8 [id number] Social History Date Type Detail Facility Start: 05-19-2021 End: 01-14-2023 Tobacco smoking status HIIS Ex-smoker [facility] End: 01-19-2020 History of tobacco use Current smoker [facility] Start: 05-19-2021 End: 01-14-2023 Tobacco use and exposure Smokeless tobacco non-user [facility] Start: 1980 Sex Assigned At Not on file [facility] Start: 04-13-2023 End: 08-15-2023 Sex Assigned At [facility] End: 01-19-2020 History of tobacco use Cigarette Smoker [facility] Tobacco smoking status No Smokin g Status Entered [facility] Start: 1982 Sex Assigned At Male F [facility] Start: 04-13-2023 End: 08-15-2023 History of Social function [facility] Within the last year , have you been afraid of your partner or ex-partner? No [facility] Are you now , , , , never or living with a partner? [facility] Work Phone: How hard is it for y ou to pay for the very basics like food, housing, medical care, and heating Not very hard [facility] Work Phone: Adolescent depressio n screening assessment 0 [facility] Work Phone: Do you feel stress - tense, restless, nervous, or anxious, or unable to sleep at night because your mind is troubled all the time - these days [OSQ] Only a little [facility] Work Phone: (I/We) worried wheth er (my/our) food would run out before (I/we) got money to buy more. Never true [facility] Work Phone: Start: 08-15-2023 Education 21 [facility] Work Phone: Start: 05-19-2021 Sex Male (finding) [facility] Medical Equipment Procedure Code Equipment Code Equipment Origin al Text Equipment Identifier Dates Nail 10mm 360mm Tib T2 Alpha Ea1 3257-1036s - [id number] Start: 05-19-2021 Scr Bn 4mm 36mm Asns Iii Ti Ea1 [id number] - [id number] Start: 05-19-2021 T2 Alpha Tibia System End Cap Tibia [id number] Start: 05-19-2021 Nail 10mm 440mm Fem Gt Rt T2 Ea1 2333-1044s - [id number] Start: 05-19-2021 Nail 10mm 360mm Tib T2 Alpha Ea1 2341-1036s - [id number] Start: 05-19-2021 Scr Bn 4mm 60mm Asns Iii Ti Ea1 [id number] - [id number] Start: 05-19-2021 4.0 X 42 Mm Screw [id number] Start: 05-19-2021 Scr Bn 5mm 45mm T2 Alpha Lck Ea1 [id number] - [id number] Start: 05-19-2021 Scr Bn 5mm 35mm T2 Alpha Lck Ea1 [id number] - [id number] Start: 05-19-2021 Scr Bn 5mm 42.5m m T2 Alpha Lck Ea1 [id number] - [id number] Start: 05-19-2021 Scr Bn 5mm 37.5m m T2 Alpha Lck Ea1 [id number] - [id number] Start: 05-19-2021 Scr Bn 5mm 40mm T2 Alpha Lck Ea1 [id number] - [id number] Start: 05-19-2021 Screw 6.5 X 100m m Lag Ea1 1897-6100s - [id number] Start: 05-19-2021 Screw 6.5 X 95mm Lag Ea1 [id number] - [id number] Start: 05-19-2021 Scr Bn 5mm 55mm T2 Alpha Lck Ea1 [id number] - [id number] Start: 05-19-2021 Scr Bn 5mm 50mm T2 Alpha Lck Ea1 2360-5050s - [id number] Start: 05-19-2021 Screw 3.5 X 12mm Self-Tapping Ea1 204.812 - [id number] Start: 05-19-2021 Scr Bn 4mm 65mm Asns Iii Ti Ea1 469756 - [id number] Start: 05-19-2021 Functional Status Date Assessment Result Facility 02-12-2023 Functional Status N/A [facility] Clinical Notes 05-19-2021 to 12-05-2024 Sofya Dsouza APRN-ELISSA - 11/13/2024 1:50 PM Sofya Nicole APRN-CNP - 08/12/2024 5:18 PM Marie Fuentes, DOYLE - 05/04/2024 1:14 PM ALECSofya santiago, [employer]AT[employer] ASSISTANT DEPARTMENT HEAD - 05/04/2024 1:04 PM EDT Note Date & Type Note Facility 12-05-2024 Note General Surgery Offi ce/Clinic Note Chief Complaint consultation for GERD HPI Staff 44 year old male presents on consultation from Dr. Martinez for GERD. Reports indigestion since August, verbalized this is worse with consumption of coffee. He has since stopped drinking coffee and avoiding acidic or spicy foods. Taking Protonix 40mg daily since early September. Reports overall symptoms are improved. He is currently experiencing indigestion 2-3 days per week. UGI completed 11/02 with mild GERD. Never had EGD in the past. History of Present Illness 44 yo male with h/o DORIAN, chronic pain syndrome, referred for refractory GERD, epigastric pain; began 3 months ago; initially occurred in am after drinking coffee, he discontinue coffee with no improvement; reports burning pain radiating into chest; worse at times after eating; no dysphagia or early satiety, no wt loss; no night time symptoms; placed on Protonix with mild improvement; no N/V or bowel changes; no wt loss, no asa or NSAID use; no tobacco use; recent UGI with mild reflux; no fmhx of GI malignancy or IBD. Review of Systems PHQ Score Initial Depression Screen Score: 0 SCORE ROS - Provider Constitutional: no fever, no sweats, no weight loss. Eyes: no glasses, no blurred vision, no visual loss. ENMT: no dentures, no hoarseness, no swallowing difficulties, no hearing loss, no ear infection(s), no nose bleeds. Cardiovascular: normal blood pressure, no chest pain, regular heartbeat, no heart murmur. Respiratory: no shortness of breath, no cough, no asthma, no wheezing. Gastrointestinal: no nausea, no vomiting, no diarrhea, no constipation, no blood in stool, no change in bowel habits, no abdominal pain, no hepatitis. Genitourinary: no kidney stones, no urine infection, no dysuria. Musculoskeletal: no pain, no weakness. Skin: no changing moles, no rash, no skin lumps. Neurologic: no seizures, no epilepsy, no headache. Psychiatric: no emotional or psychiatric problem. Heme/Lymph: no bleeding problems, no anemia, no blood clots, no transfusions. Allergy/Immunologic: no swollen lymph nodes/glands, no IV drug abuse. Other: Additional ROS info: Except as noted in the above Review of Systems and in the History of Present Illness, all other systems have been reviewed and are negative or noncontributory. Physical Exam Vitals & Measurements HR: 71(Peripheral) RR: 16 BP: 120/78 HT: 75 in HT: 190.5 cm WT: 86.4 kg WT: 190.479 lb BMI: 23.81 HEENT: normal conjunctiva, sclera clear, no scleral icterus, EOM intact, PERRLA, oral mucosa moist without lesions. Neck: trachea midline, no mass, symmetric, no thyromegaly or nodules, no adenopathy Respiratory: lungs CTA, respirations non labored. Cardiovascular: regular rate and rhythm, no murmur, no pedal edema or varicosities. Gastrointestinal: soft, non distended, no tenderness, no masses, no palpable hernias, diastasis recti no, no hepatosplenomegaly; normal bs Lymphatic: no cervical adenopathy, nosupraclavicular adenopathy. Musculoskeletal: normal gait, digits and nails without infection, nodes, cyanosis, clubbing. Skin: no rashes, no lesions, no ulcers, no subcutaneous nodules, induration. Psychiatric/Neuro: oriented to time, place, person, judgement normal, affect appropriate for age, insight intact, no focal deficits. Tests: x-rays reviewed, review of old records completed , Discussed surgical options, risks, and possible complications with patient. Assessment/Plan 1. Chronic GERD (K21.9: Gastro-esophageal reflux disease without esophagitis) plan EGD under anesthesia for further evaluation; informed consent obtained. 2. Epigastric pain (R10.13: Epigastric pain) see #1 Follow-up No qualifying data available Problem List/Past Medical History Ongoing Chronic constipation Chronic GERD Chronic pain syndrome Chronic prostatitis Epigastric pain GERD (gastroesophageal reflux disease) DORIAN (obstructive sleep apnea) Seasonal allergic rhinitis Historical No qualifying data Procedure/Surgical History Buccal mucosa squamous cell carcinoma., ORIF - Open reduction and internal fixation of fracture, Tympanostomy tube. Medications pregabalin 150 mg Cap, 150 mg= 1 cap(s), Oral, Daily Protonix 40 mg Tab-DR, 40 mg= 1 tab(s), Oral, Daily Allergies No Known Allergies Social History Alcohol - Denies Alcohol Use, 02/12/2023 Never., 11/29/2024 Substance Abuse - Denies Substance Abuse, 02/12/2023 Never., 11/29/2024 Tobacco - Denies Tobacco Use, 02/12/2023 Former smoker, quit more than 30 days ago Tobacco Use:. Never Smokeless Tobacco Use:. Cigarettes, 0.5 per day. Started age 22.0 Years. Stopped age 40 Years., 12/05/2024 Family History Cardiac arrhythmia: Father. Diabetes mellitus type 2: Mother. Heart disease: Mother. Immunizations Vaccine Date Status Comments SARS-CoV-2 (COVID-19) mRNA-1273 vaccine 12/03/2021 Recorded SARS-CoV-2 (COVID-19) mRNA BNT-162b2 vax 04/04/2021 Given Prophylaxis SARS-Co (more content not included)... [facility] Comment on above: Result Comment: Elec tronically Signed By: FELICITA RODRIGUEZ, Eleazar Dougherty.raman\Date and Time Signed: 12/05/24 15:02 EST 11-13-2024 History of Present illness Narrative Images from the original note were not included. 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 Patient presents today for follow up regarding chronic conditions. History was provided by the patient. Since the last visit for knee, ankle and leg pain, patient has had stable course. Pain level today is 0/10. Pain when present is currently described as throbbing and stabbingwith radiation to legs and without weakness of arms or legs, and is made worse by nothing.Patient denies any recent traumas or injuries. He is being prescribed Lyrica. He is reporting this regimen is improving his ability to perform his ADL's and is reporting an analgesic effect with medication therapy. Patient reports sharp pain and pressure intermittently in great toe and second toe, mostly in left can happen in right as well REVIEW OF SYSTEMS: Constitutional: Denies unexplained wt loss/gain, change in appetite, fever, and chills. Respiratory: negative symptoms (no cough, hemoptysis, SOB, KEARNEY, PND, wheezing) Cardiovascular: negative symptoms (No CP/Pressure/Tightness, palpitations, orthopnea, PND, SOB, KEARNEY, edema, MELENDEZ or vision change) Gastrointestinal: negative symptoms (no abdominal pain, anorexia, n/v, indigestion, constipation, or diarrhea) Musculoskeletal: bilateral lower extremities : Denies bowel or bladder incontinence or saddle anesthesia. Neuro: Intermittently tingling in right foot and left foot. OBJECTIVE: Today's vital signs were reviewed General appearance: alert, pleasant, mild distress, cooperative. Skin: Normal turgor; no rash or other lesions, no peripheral edema. Neck: supple and no adenopathy. Lungs:deferred. Heart: deferred. Abdomen: Deferred. Back: Back: Symmetric, no abnormal curvature. Musculoskeletal: Left upper extremity 5/5, Right upper extremity 5/5, Left lower extremity 4/5, and Right lower extremity 5/5 strength respectively. TTP over left anterior tibia and ankle scars Neurologic: Positive vibratory sensation LUE, RUE, LLE, and RLE. Last OV: 08/10/24 Last MD CO EVAL and Plan: 04/13/23 Impression: 42 YOM , S.P WC injury right femur IMN and left tibia IMN and ankle ORIF in 04/2021 with neuropathic pain distal leg and ankle , non dermatomal , better Plan: 1. Discussed options OARRS reviewed Voltaren gel Lido patches Increase to Lyrica 100 BID Discussed sciatic and saphenus blocks if pain worsen F/U with COMPENSATION DIRECTOR in 3 M The impression and plan were discussed and explained in detail. All the questions were answered. Education was provided accordingly. The procedure was explained in detail, along with risks and potential side effects. The appropriate use of the medications, including storage, risks (including addiction) and potential sides effects were explained and discussed. Procedures: None Pertinent Imaging/Labs: Left tib/fib 07/16/24 IMPRESSION: Comparison with the previous studies shows no change in position or alignment of the previously described fractures. The tibial fracture is healed or mostly healed without significant residual fracture lucency. There remains a residual deformity with bony protuberance anteriorly and a small defect posteriorly. The fibular fracture appears healed without residual fracture lucency. Hardware is intact without signs of loosening. EMG 05/13/23 Mildly abnormal study 1. Nerve conduction studies revealed absence of a left superficial peroneal sensory response, which can be seen in left superficial peroneal sensory neuropathy. However, needle EMG of muscles innervated by the left superficial peroneal nerve was normal, pointing against any motor involvement if pathology truly present. 2. There is no electrodiagnostic evidence of left tibial neuropathy or overt left L3-S1 radiculopathy. Significance of the isolated increased amplitude motor unit noted in the left EDB is uncertain. XRAY RIGHT ANKLE 05/02/23 Healed tibial shaft fracture, fibular shaft fracture ankle fracture Narrative Interpreted By: OBEY GAUTHIER MD Patient Name: TOM ROONEY STUDY: ANKLE, COMPLETE, MIN 3 VIEWS; Left; 05/02/2023 4:13 pm INDICATION: pain M25.571: Ankle pain, right. COMPARISON: None. ACCESSION NUMBER(S): [id number] ORDERING CLINICIAN: OBEY GAUTHIER FINDINGS: Multiple views left ankle: Status post open reduction internal fixation: Healed ankle fracture in near anatomic alignment. Abundant bridging bone formation of tibial shaft fracture. See EHR for PMH, PSH, FH, SH, Medications and Allergy Portions of record reviewed for pertinent issues: active problem list, medication list, allergies, family history, social history, notes from last encounter, lab results, and imaging. Relevant medical history: work related injury of drywall falling on to BLE in April 2021, s/p right femur IMN and left tibia IMN and ankle ORIF on 05/19/2021 Non opioid controlled substance agreement : 11/08/23 Impression: Patient with chronic pain secondary to neuropathic pain in for follow up. He remains stable on current regimen. He is reporting this regimen is improving his ability to perform his ADL's; is not manifesting any adverse effects (constipation, nausea, somnolence); is reporting an analgesic effect of pain relief with medication therapy; and is not demonstrating aberrant behaviors (psychiatric difficulties, attendance for office appointments, non-compliance, or deceitful activities).Reports intermittent great toe pressure , discussed likely pathology from low back. Therefore, plan as follows: Plan: Discussed plan of care with Tom Rooney Reviewed all relevant h/x, imaging, clinical notes, labs OARRS was reviewed: 11/13/24, Patient is not being prescribed Medical Marijuana, any benzodiazepines, or Carisoprodol by any other healthcare providers Routine Lyrica UTOX today Continue Lyrica 100 mg #60 and lido patches Refilled Lyrica Left L4-5, TFESI pending imaging L-SPINE XRAY for lumbar radicular symptoms RTC in 3 months Patient was advised that controlled substances may impair judgement, ability to process information, drive, or operate dangerous machinery. Controlled substances should not be mixed with alcohol or any other controlled medications without express direction from provider. Patient was informed of risks for misuse and potential for addiction and advised on safe storage and disposal of controlled substances. ITALO Espinal documented in this encounter [facility] 08-12-2024 History of Present illness Narrative PAIN MANAGEMENT FOLLOW-UP Documentation: Mode: Video Consent: This visit was initiated by the patient. Audio and visual communication was utilized in real-time. I confirmed understanding of risks and benefits of telehealth visits and obtained consent to proceed with the telemedicine visit. 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 Since the last visit for knee, ankle leg pain, patient has had stable course. Pain level today is 0/10. Pain is currently described as throbbing and stabbingwith radiation to legs and without weakness of arms or legs, and is made worse by nothing.Patient denies any recent traumas or injuries. He is being prescribed Lyrica. Reports still doing well on current dosing. Leg symptoms persist with certain movement but not that bad per patient not interested in PT at this time. REVIEW OF SYSTEMS: Constitutional: Denies unexplained wt loss/gain, change in appetite, fever, and chills. Respiratory: negative symptoms (no cough, hemoptysis, SOB, KEARNEY, PND, wheezing) Cardiovascular: negative symptoms (No CP/Pressure/Tightness, palpitations, orthopnea, PND, SOB, KEARNEY, edema, MELENDEZ or vision change) Gastrointestinal: negative symptoms (no abdominal pain, anorexia, n/v, indigestion, constipation, or diarrhea) Musculoskeletal: bilateral lower extremities : Denies bowel or bladder incontinence or saddle anesthesia. Neuro: Intermittently tingling in right foot and left foot. No physical exam due to video visit Patient is A&O x3, fully participating in the video visit , and appears well. OBJECTIVE: 05/04/24 Today's vital signs were reviewed General appearance: alert, pleasant, mild distress, cooperative. Skin: Normal turgor; no rash or other lesions, no peripheral edema. Neck: supple and no adenopathy. Lungs:deferred. Heart: deferred. Abdomen: Deferred. Back: Back: Symmetric, no abnormal curvature. Musculoskeletal: Left upper extremity 5/5, Right upper extremity 5/5, Left lower extremity 4/5, and Right lower extremity 5/5 strength respectively. TTP over left anterior tibia and ankle scars Neurologic: Positive vibratory sensation LUE, RUE, LLE, and RLE. Last OV: 05/04/24 Last MD CO EVAL and Plan: 04/13/23 Impression: 42 YOM , S.P WC injury right femur IMN and left tibia IMN and ankle ORIF in 04/2021 with neuropathic pain distal leg and ankle , non dermatomal , better Plan: 1. Discussed options OARRS reviewed Voltaren gel Lido patches Increase to Lyrica 100 BID Discussed sciatic and saphenus blocks if pain worsen F/U with COMPENSATION DIRECTOR in 3 M The impression and plan were discussed and explained in detail. All the questions were answered. Education was provided accordingly. The procedure was explained in detail, along with risks and potential side effects. The appropriate use of the medications, including storage, risks (including addiction) and potential sides effects were explained and discussed. Procedures: None Pertinent Imaging/Labs: Left tib/fib 07/16/24 IMPRESSION: Comparison with the previous studies shows no change in position or alignment of the previously described fractures. The tibial fracture is healed or mostly healed without significant residual fracture lucency. There remains a residual deformity with bony protuberance anteriorly and a small defect posteriorly. The fibular fracture appears healed without residual fracture lucency. Hardware is intact without signs of loosening. EMG 05/13/23 Mildly abnormal study 1. Nerve conduction studies revealed absence of a left superficial peroneal sensory response, which can be seen in left superficial peroneal sensory neuropathy. However, needle EMG of muscles innervated by the left superficial peroneal nerve was normal, pointing against any motor involvement if pathology truly present. 2. There is no electrodiagnostic evidence of left tibial neuropathy or overt left L3-S1 radiculopathy. Significance of the isolated increased amplitude motor unit noted in the left EDB is uncertain. XRAY RIGHT ANKLE 05/02/23 Healed tibial shaft fracture, fibular shaft fracture ankle fracture Narrative Interpreted By: OBEY GAUTHIER MD Patient Name: TOM ROONEY STUDY: ANKLE, COMPLETE, MIN 3 VIEWS; Left; 05/02/2023 4:13 pm INDICATION: pain M25.571: Ankle pain, right. COMPARISON: None. ACCESSION NUMBER(S): [id number] ORDERING CLINICIAN: OBEY GAUTHIER FINDINGS: Multiple views left ankle: Status post open reduction internal fixation: Healed ankle fracture in near anatomic alignment. Abundant bridging bone formation of tibial shaft fracture. PRIOR MEDICAL HISTORY: No past medical history on file. PRIOR SURGICAL HISTORY: Past Surgical History: Procedure Laterality Date REDUCTION, OPEN, FEMUR, INTRAMEDULLARY MILES Right 05/19/2021 Procedure: REDUCTION, OPEN, FEMUR, INTRAMEDULLARY MILES; Surgeon: Turner Swenson DO; Location: [facility]IVE SERVICES; Service: Orthopaedics REDUCTION, OPEN, TIBIA PILON Left 05/19/2021 Procedure: REDUCTION, OPEN, TIBIA PILON; Surgeon: Turner Swenson DO; Location: PERIOPERATIVE SERVICES; Service: Orthopaedics REDUCTION, OPEN, TIBIA, INTRAMEDULLARY MILES Left 05/19/2021 Procedure: REDUCTION, OPEN, TIBIA, INTRAMEDULLARY MILES; Surgeon: Turner Swenson DO; Location: PERIOPER[facility]IVE SERVICES; Service: Orthopaedics MEDICATIONS: Current Outpatient Medications on File Prior to Visit Medication Sig Dispense Refill Naproxen Sodium (Aleve) 220 MG CAPS Aleve lidocaine (Lidoderm) 5 % patch Place 1 Patch on the skin every 24 hours. 10 Patch 3 Naproxen Sodium (ALEVE ORAL) Take by mouth. Pt. States he doesn't know the mg he takes. enoxaparin (Lovenox) 40 mg/0.4 mL injection Inject 0.4 mL under the skin 2 times daily. 33.6 mL 0 docusate sodium (Colace) 100 MG capsule Take 1 Capsule by mouth 2 times daily. 60 Capsule 0 No current facility-administered medications on file prior to visit. SOCIAL HISTORY: Social History Tobacco Use Smoking status: Former Current packs/day: 0.00 Types: Cigarettes Quit date: 01/19/2020 Years since quittin.5 Smokeless tobacco: Never Vaping Use Vaping status: Never Used FAMILY HISTORY No family history on file. Portions of record reviewed for pertinent issues: active problem list, medication list, allergies, family history, social history, notes from last encounter, lab results, and imaging. ASSESSMENT: Patient with neuropathic pain due to work related injury of drywall falling on to BLE in April 2021, s/p right femur IMN and left tibia IMN and ankle ORIF on 05/19/2021 in for follow up. He remains stable on current regimen, these medications reduce his pain to an acceptable level and allow him to remain functional with his daily activities. I will refill as below and bring back to clinic in 3 months. PLAN: 1) OARRS was reviewed today 2) Non opioid controlled substance agreement reviewed and signed previously 11/08/23 3) Continue Lyrica 100 mg BID and Lido patches PRN, patient reports good pain control with this 4) Current Morphine Equivalent Dose (MED)= 0 5) Patient is not being prescribed Medical Marijuana, any benzodiazepines, or Carisoprodol by any other healthcare providers 6)Refilled Lyrica 100 mg #60,no need for lido patches 7) S/S consitent with patellofemoral syndrome, can consider PT not interested at this time 8) RTC in 3 months Patient was advised that controlled substances may impair judgement, ability to process information, drive, or operate dangerous machinery. Controlled substances should not be mixed with alcohol or any other controlled medications without express direction from provider. Patient was informed of risks for misuse and potential for addiction and advised on safe storage and disposal of controlled substances. Sofya Dsouza, [employer] ASSISTANT DEPARTMENT HEAD documented in this encounter [facility] 05-04-2024 History of Present illness Narrative Patient was identified by name and date of . 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 Since the last visit for knee, ankle leg pain, patient has had stable course. Pain level today is 0/10. Pain is currently described as throbbing and stabbingwith radiation to legs and without weakness of arms or legs, and is made worse by nothing.Patient denies any recent traumas or injuries. He is being prescribed Lyrica. He is reporting this regimen is improving his ability to perform his ADL's; is not manifesting any adverse effects (constipation, nausea, somnolence); is reporting an analgesic effect of pain relief from 8/10 to 2/10 with medication therapy; and is not demonstrating aberrant behaviors (psychiatric difficulties, attendance for office appointments, non-compliance, or deceitful activities). REVIEW OF SYSTEMS: Constitutional: Denies unexplained wt loss/gain, change in appetite, fever, and chills. Respiratory: negative symptoms (no cough, hemoptysis, SOB, KEARNEY, PND, wheezing) Cardiovascular: negative symptoms (No CP/Pressure/Tightness, palpitations, orthopnea, PND, SOB, KEARNEY, edema, MELENDEZ or vision change) Gastrointestinal: negative symptoms (no abdominal pain, anorexia, n/v, indigestion, constipation, or diarrhea) Musculoskeletal: bilateral lower extremities : Denies bowel or bladder incontinence or saddle anesthesia. Neuro: Intermittently tingling in right foot and left foot. OBJECTIVE: Today's vital signs were reviewed General appearance: alert, pleasant, mild distress, cooperative. Skin: Normal turgor; no rash or other lesions, no peripheral edema. Neck: supple and no adenopathy. Lungs:deferred. Heart: deferred. Abdomen: Deferred. Back: Back: Symmetric, no abnormal curvature. Musculoskeletal: Left upper extremity 5/5, Right upper extremity 5/5, Left lower extremity 4/5, and Right lower extremity 5/5 strength respectively. TTP over left anterior tibia and ankle scars Neurologic: Positive vibratory sensation LUE, RUE, LLE, and RLE. Last OV: 02/03/24 Last MD CO EVAL and Plan: 04/13/23 Impression: 42 YOM , S.P WC injury right femur IMN and left tibia IMN and ankle ORIF in 04/2021 with neuropathic pain distal leg and ankle , non dermatomal , better Plan: 1. Discussed options OARRS reviewed Voltaren gel Lido patches Increase to Lyrica 100 BID Discussed sciatic and saphenus blocks if pain worsen F/U with COMPENSATION DIRECTOR in 3 M The impression and plan were discussed and explained in detail. All the questions were answered. Education was provided accordingly. The procedure was explained in detail, along with risks and potential side effects. The appropriate use of the medications, including storage, risks (including addiction) and potential sides effects were explained and discussed. Procedures: None Pertinent Imaging/Labs: EMG 05/13/23 Mildly abnormal study 1. Nerve conduction studies revealed absence of a left superficial peroneal sensory response, which can be seen in left superficial peroneal sensory neuropathy. However, needle EMG of muscles innervated by the left superficial peroneal nerve was normal, pointing against any motor involvement if pathology truly present. 2. There is no electrodiagnostic evidence of left tibial neuropathy or overt left L3-S1 radiculopathy. Significance of the isolated increased amplitude motor unit noted in the left EDB is uncertain. XRAY RIGHT ANKLE 05/02/23 Healed tibial shaft fracture, fibular shaft fracture ankle fracture Narrative Interpreted By: OBEY GAUTHIER MD Patient Name: TOM ROONEY STUDY: ANKLE, COMPLETE, MIN 3 VIEWS; Left; 05/02/2023 4:13 pm INDICATION: pain M25.571: Ankle pain, right. COMPARISON: None. ACCESSION NUMBER(S): [id number] ORDERING CLINICIAN: OBEY GAUTHIER FINDINGS: Multiple views left ankle: Status post open reduction internal fixation: Healed ankle fracture in near anatomic alignment. Abundant bridging bone formation of tibial shaft fracture. TIB/FIB XRAY 05/02/23 Impression Healed mid shaft tibia and fibula fracture Narrative Interpreted By: OBEY GAUTHIER MD Patient Name: TOM ROONEY STUDY: TIBIA ; Left; 05/02/2023 4:13 pm INDICATION: pain M89.8X6: Pain in left tibia. COMPARISON: None. ACCESSION NUMBER(S): [id number] ORDERING CLINICIAN: OBEY GAUTHIER FINDINGS: Two views left tib fib: Healed mid shaft tibia fracture status post intramedullary nailing abundant bridging bone formation consistent with a healed tibial shaft fracture and fibula fracture. PRIOR MEDICAL HISTORY: No past medical history on file. PRIOR SURGICAL HISTORY: Past Surgical History: Procedure Laterality Date REDUCTION, OPEN, FEMUR, INTRAMEDULLARY MILES Right 05/19/2021 Procedure: REDUCTION, OPEN, FEMUR, INTRAMEDULLARY MILES; Surgeon: Turner Swenson DO; Location: PERIOPERATIVE SERVICES; Service: Orthopaedics REDUCTION, OPEN, TIBIA PILON Left 05/19/2021 Procedure: REDUCTION, OPEN, TIBIA PILON; Surgeon: Turner Swenson DO; Location: PERIOPERATIVE SERVICES; Service: Orthopaedics REDUCTION, OPEN, TIBIA, INTRAMEDULLARY MILES Left 05/19/2021 Procedure: REDUCTION, OPEN, TIBIA, INTRAMEDULLARY MIELS; Surgeon: Turner Swenson DO; Location: PERIOPERATIVE SERVICES; Service: Orthopaedics MEDICATIONS: Current Outpatient Medications on File Prior to Visit Medication Sig Dispense Refill pregabalin (LYRICA) 100 MG capsule Take 1 Capsule by mouth 2 times daily for 90 days. 60 Capsule 2 Naproxen Sodium (Aleve) 220 MG CAPS Aleve lidocaine (Lidoderm) 5 % patch Place 1 Patch on the skin every 24 hours. 10 Patch 3 Naproxen Sodium (ALEVE ORAL) Take by mouth. Pt. States he doesn't know the mg he takes. enoxaparin (Lovenox) 40 mg/0.4 mL injection Inject 0.4 mL under the skin 2 times daily. 33.6 mL 0 docusate sodium (Colace) 100 MG capsule Take 1 Capsule by mouth 2 times daily. 60 Capsule 0 No current facility-administered medications on file prior to visit. SOCIAL HISTORY: Social History Tobacco Use Smoking status: Former Current packs/day: 0.00 Types: Cigarettes Quit date: 01/19/2020 Years since quittin.2 Smokeless tobacco: Never Vaping Use Vaping status: Never Used FAMILY HISTORY No family history on file. Portions of record reviewed for pertinent issues: active problem list, medication list, allergies, family history, social history, notes from last encounter, lab results, and imaging. ASSESSMENT: Patient with neuropathic pain due to work related injury of drywall falling on to BLE in April 2021, s/p right femur IMN and left tibia IMN and ankle ORIF on 05/19/2021 in for follow up. He remains stable on current regimen, these medications reduce his pain to an acceptable level and allow him to remain functional with his daily activities. I will refill as below and bring back to clinic in 1 month. PLAN: 1) OARRS was reviewed today 2) Non opioid controlled substance agreement reviewed and signed previously 11/08/23 3) Continue Lyrica 100 mg BID and Lido patches PRN, patient reports good pain control with this 4) Current Morphine Equivalent Dose (MED)= 0 5) Patient is not being prescribed Medical Marijuana, any benzodiazepines, or Carisoprodol by any other healthcare providers 6)Refilled Lyrica 100 mg #60,no need for lido patches 7) S/S consitent with patellofemoral syndrome, can consider PT 8) RTC in 3 months Patient was advised that controlled substances may impair judgement, ability to process information, drive, or operate dangerous machinery. Controlled substances should not be mixed with alcohol or any other controlled medications without express direction from provider. Patient was informed of risks for misuse and potential for addiction and advised on safe storage and disposal of controlled substances. ITALO Espinal documented in this encounter [facility] 02-03-2024 History of Present illness Narrative PAIN MANAGEMENT FOLLOW-UP HPI: We are seeing this patient in our Pain Management clinic for chronic pain secondary to neuropathic pain due to work related injury of drywall falling on to BLE in April 2021, s/p right femur IMN and left tibia IMN and ankle ORIF on 05/19/2021 History was provided by the patient. Since the last visit for knee, ankle leg pain, patient has had stable course. Pain level today is 2/10. Pain is currently described as throbbing and stabbingwith radiation to legs and without weakness of arms or legs, and is made worse by nothing.Patient denies any recent traumas or injuries. He is being prescribed Lyrica. He is reporting this regimen is improving his ability to perform his ADL's; is not manifesting any adverse effects (constipation, nausea, somnolence); is reporting an analgesic effect of pain relief from 8/10 to 2/10 with medication therapy; and is not demonstrating aberrant behaviors (psychiatric difficulties, attendance for office appointments, non-compliance, or deceitful activities). REVIEW OF SYSTEMS: Constitutional: Denies unexplained wt loss/gain, change in appetite, fever, and chills. Respiratory: negative symptoms (no cough, hemoptysis, SOB, KEARNEY, PND, wheezing) Cardiovascular: negative symptoms (No CP/Pressure/Tightness, palpitations, orthopnea, PND, SOB, KEARNEY, edema, MELENDEZ or vision change) Gastrointestinal: negative symptoms (no abdominal pain, anorexia, n/v, indigestion, constipation, or diarrhea) Musculoskeletal: bilateral lower extremities : Denies bowel or bladder incontinence or saddle anesthesia. Neuro: Intermittently tingling in right foot and left foot. OBJECTIVE: Today's vital signs were reviewed General appearance: alert, pleasant, mild distress, cooperative. Skin: Normal turgor; no rash or other lesions, no peripheral edema. Neck: supple and no adenopathy. Lungs:deferred. Heart: deferred. Abdomen: Deferred. Back: Back: Symmetric, no abnormal curvature. Musculoskeletal: Left upper extremity 5/5, Right upper extremity 5/5, Left lower extremity 4/5, and Right lower extremity 5/5 strength respectively. TTP over left anterior tibia and ankle scars Neurologic: Positive vibratory sensation LUE, RUE, LLE, and RLE. Last OV: 08/23/23 Last MD CO EVAL and Plan: 04/13/23 Impression: 42 YOM , S.P WC injury right femur IMN and left tibia IMN and ankle ORIF in 04/2021 with neuropathic pain distal leg and ankle , non dermatomal , better Plan: 1. Discussed options OARRS reviewed Voltaren gel Lido patches Increase to Lyrica 100 BID Discussed sciatic and saphenus blocks if pain worsen F/U with COMPENSATION DIRECTOR in 3 M The impression and plan were discussed and explained in detail. All the questions were answered. Education was provided accordingly. The procedure was explained in detail, along with risks and potential side effects. The appropriate use of the medications, including storage, risks (including addiction) and potential sides effects were explained and discussed. Procedures: None Pertinent Imaging/Labs: EMG 05/13/23 Mildly abnormal study 1. Nerve conduction studies revealed absence of a left superficial peroneal sensory response, which can be seen in left superficial peroneal sensory neuropathy. However, needle EMG of muscles innervated by the left superficial peroneal nerve was normal, pointing against any motor involvement if pathology truly present. 2. There is no electrodiagnostic evidence of left tibial neuropathy or overt left L3-S1 radiculopathy. Significance of the isolated increased amplitude motor unit noted in the left EDB is uncertain. XRAY RIGHT ANKLE 05/02/23 Healed tibial shaft fracture, fibular shaft fracture ankle fracture Narrative Interpreted By: OBEY GAUTHIER MD Patient Name: TOM ROONEY STUDY: ANKLE, COMPLETE, MIN 3 VIEWS; Left; 05/02/2023 4:13 pm INDICATION: pain M25.571: Ankle pain, right. COMPARISON: None. ACCESSION NUMBER(S): [id number] ORDERING CLINICIAN: OBEY GAUTHIER FINDINGS: Multiple views left ankle: Status post open reduction internal fixation: Healed ankle fracture in near anatomic alignment. Abundant bridging bone formation of tibial shaft fracture. TIB/FIB XRAY 05/02/23 Impression Healed mid shaft tibia and fibula fracture Narrative Interpreted By: OBEY GAUTHIER MD Patient Name: TOM ROONEY STUDY: TIBIA ; Left; 05/02/2023 4:13 pm INDICATION: pain M89.8X6: Pain in left tibia. COMPARISON: None. ACCESSION NUMBER(S): [id number] ORDERING CLINICIAN: OBEY GAUTHIER FINDINGS: Two views left tib fib: Healed mid shaft tibia fracture status post intramedullary nailing abundant bridging bone formation consistent with a healed tibial shaft fracture and fibula fracture. PRIOR MEDICAL HISTORY: No past medical history on file. PRIOR SURGICAL HISTORY: Past Surgical History: Procedure Laterality Date REDUCTION, OPEN, FEMUR, INTRAMEDULLARY MILES Right 05/19/2021 Procedure: REDUCTION, OPEN, FEMUR, INTRAMEDULLARY MILES; Surgeon: Turner Swenson DO; Location: PERIOPERATIVE SERVICES; Service: Orthopaedics REDUCTION, OPEN, TIBIA PILON Left 05/19/2021 Procedure: REDUCTION, OPEN, TIBIA PILON; Surgeon: Turner Swenson DO; Location: PERIOPERATIVE SERVICES; Service: Orthopaedics REDUCTION, OPEN, TIBIA, INTRAMEDULLARY MILES Left 05/19/2021 Procedure: REDUCTION, OPEN, TIBIA, INTRAMEDULLARY MILES; Surgeon: Turner Swenson DO; Location: PERIOPERATIVE SERVICES; Service: Orthopaedics MEDICATIONS: Current Outpatient Medications on File Prior to Visit Medication Sig Dispense Refill pregabalin (LYRICA) 100 MG capsule Take 1 Capsule by mouth 2 times daily for 90 days. 60 Capsule 2 Naproxen Sodium (Aleve) 220 MG CAPS Aleve lidocaine (Lidoderm) 5 % patch Place 1 Patch on the skin every 24 hours. 10 Patch 3 Naproxen Sodium (ALEVE ORAL) Take by mouth. Pt. States he doesn't know the mg he takes. enoxaparin (Lovenox) 40 mg/0.4 mL injection Inject 0.4 mL under the skin 2 times daily. 33.6 mL 0 docusate sodium (Colace) 100 MG capsule Take 1 Capsule by mouth 2 times daily. 60 Capsule 0 No current facility-administered medications on file prior to visit. SOCIAL HISTORY: Social History Tobacco Use Smoking status: Former Current packs/day: 0.00 Types: Cigarettes Quit date: 01/19/2020 Years since quittin.0 Smokeless tobacco: Never Vaping Use Vaping Use: Never used FAMILY HISTORY No family history on file. Portions of record reviewed for pertinent issues: active problem list, medication list, allergies, family history, social history, notes from last encounter, lab results, and imaging. ASSESSMENT: Patient with neuropathic pain due to work related injury of drywall falling on to BLE in April 2021, s/p right femur IMN and left tibia IMN and ankle ORIF on 05/19/2021 in for follow up. He remains stable on current regimen, these medications reduce his pain to an acceptable level and allow him to remain functional with his daily activities. I will refill as below and bring back to clinic in 1 month. PLAN: 1) OARRS was reviewed today 2) Non opioid controlled substance agreement reviewed and signed previously 11/08/23 3) Continue Lyrica 100 mg BID and Lido patches PRN, patient reports good pain control with this 4) Current Morphine Equivalent Dose (MED)= 0 5) Patient is not being prescribed Medical Marijuana, any benzodiazepines, or Carisoprodol by any other healthcare providers 6)Refilled Lyrica 100 mg #60,no need for lido patches 7) S/S consitent with patellofemoral syndrome with assess at next visit 8) RTC in 3 months Patient was advised that controlled substances may impair judgement, ability to process information, drive, or operate dangerous machinery. Controlled substances should not be mixed with alcohol or any other controlled medications without express direction from provider. Patient was informed of risks for misuse and potential for addiction and advised on safe storage and disposal of controlled substances. ITALO Espinal documented in this encounter [facility] [employer] Work Phone: 11-11-2023 History of Present illness Narrative PAIN MANAGEMENT FOLLOW-UP HPI: We are seeing this patient in our Pain Management clinic for chronic pain secondary to neuropathic pain due to work related injury of drywall falling on to BLE in April 2021, s/p right femur IMN and left tibia IMN and ankle ORIF on 05/19/2021 History was provided by the patient. Since the last visit for knee, ankle leg pain, patient has had stable course. Pain level today is 2/10. Pain is currently described as throbbing and stabbingwith radiation to legs and without weakness of arms or legs, and is made worse by nothing.Patient denies any recent traumas or injuries. He is being prescribed Lyrica. He is reporting this regimen is improving his ability to perform his ADL's; is not manifesting any adverse effects (constipation, nausea, somnolence); is reporting an analgesic effect of pain relief from 8/10 to 2/10 with medication therapy; and is not demonstrating aberrant behaviors (psychiatric difficulties, attendance for office appointments, non-compliance, or deceitful activities). REVIEW OF SYSTEMS: Constitutional: Denies unexplained wt loss/gain, change in appetite, fever, and chills. Respiratory: negative symptoms (no cough, hemoptysis, SOB, KEARNEY, PND, wheezing) Cardiovascular: negative symptoms (No CP/Pressure/Tightness, palpitations, orthopnea, PND, SOB, KEARNEY, edema, MELENDEZ or vision change) Gastrointestinal: negative symptoms (no abdominal pain, anorexia, n/v, indigestion, constipation, or diarrhea) Musculoskeletal: bilateral lower extremities : Denies bowel or bladder incontinence or saddle anesthesia. Neuro: Intermittently tingling in right foot and left foot. OBJECTIVE: Today's vital signs were reviewed General appearance: alert, pleasant, mild distress, cooperative. Skin: Normal turgor; no rash or other lesions, no peripheral edema. Neck: supple and no adenopathy. Lungs:deferred. Heart: deferred. Abdomen: Deferred. Back: Back: Symmetric, no abnormal curvature. Musculoskeletal: Left upper extremity 5/5, Right upper extremity 5/5, Left lower extremity 4/5, and Right lower extremity 5/5 strength respectively. TTP over left anterior tibia and ankle scars Neurologic: Positive vibratory sensation LUE, RUE, LLE, and RLE. Last OV: 08/23/23 Last MD CO EVAL and Plan: 04/13/23 Impression: 42 YOM , S.P WC injury right femur IMN and left tibia IMN and ankle ORIF in 04/2021 with neuropathic pain distal leg and ankle , non dermatomal , better Plan: 1. Discussed options OARRS reviewed Voltaren gel Lido patches Increase to Lyrica 100 BID Discussed sciatic and saphenus blocks if pain worsen F/U with COMPENSATION DIRECTOR in 3 M The impression and plan were discussed and explained in detail. All the questions were answered. Education was provided accordingly. The procedure was explained in detail, along with risks and potential side effects. The appropriate use of the medications, including storage, risks (including addiction) and potential sides effects were explained and discussed. Procedures: None Pertinent Imaging/Labs: EMG 05/13/23 Mildly abnormal study 1. Nerve conduction studies revealed absence of a left superficial peroneal sensory response, which can be seen in left superficial peroneal sensory neuropathy. However, needle EMG of muscles innervated by the left superficial peroneal nerve was normal, pointing against any motor involvement if pathology truly present. 2. There is no electrodiagnostic evidence of left tibial neuropathy or overt left L3-S1 radiculopathy. Significance of the isolated increased amplitude motor unit noted in the left EDB is uncertain. XRAY RIGHT ANKLE 05/02/23 Healed tibial shaft fracture, fibular shaft fracture ankle fracture Narrative Interpreted By: OBEY GAUTHIER MD Patient Name: TOM ROONEY STUDY: ANKLE, COMPLETE, MIN 3 VIEWS; Left; 05/02/2023 4:13 pm INDICATION: pain M25.571: Ankle pain, right. COMPARISON: None. ACCESSION NUMBER(S): [id number] ORDERING CLINICIAN: OBEY GAUTHIER FINDINGS: Multiple views left ankle: Status post open reduction internal fixation: Healed ankle fracture in near anatomic alignment. Abundant bridging bone formation of tibial shaft fracture. TIB/FIB XRAY 05/02/23 Impression Healed mid shaft tibia and fibula fracture Narrative Interpreted By: OBEY GAUTHIER MD Patient Name: TOM ROONEY STUDY: TIBIA ; Left; 05/02/2023 4:13 pm INDICATION: pain M89.8X6: Pain in left tibia. COMPARISON: None. ACCESSION NUMBER(S): [id number] ORDERING CLINICIAN: OBEY GAUTHIER FINDINGS: Two views left tib fib: Healed mid shaft tibia fracture status post intramedullary nailing abundant bridging bone formation consistent with a healed tibial shaft fracture and fibula fracture. PRIOR MEDICAL HISTORY: No past medical history on file. PRIOR SURGICAL HISTORY: Past Surgical History: Procedure Laterality Date REDUCTION, OPEN, FEMUR, INTRAMEDULLARY MILES Right 05/19/2021 Procedure: REDUCTION, OPEN, FEMUR, INTRAMEDULLARY MILES; Surgeon: Turner Swenson DO; Location: PERIOPERATIVE SERVICES; Service: Orthopaedics REDUCTION, OPEN, TIBIA PILON Left 05/19/2021 Procedure: REDUCTION, OPEN, TIBIA PILON; Surgeon: Turner Swenson DO; Location: PERIOPERATIVE SERVICES; Service: Orthopaedics REDUCTION, OPEN, TIBIA, INTRAMEDULLARY MILES Left 05/19/2021 Procedure: REDUCTION, OPEN, TIBIA, INTRAMEDULLARY MILES; Surgeon: Turner Swenson DO; Location: PERIOPERATIVE SERVICES; Service: Orthopaedics MEDICATIONS: Current Outpatient Medications on File Prior to Visit Medication Sig Dispense Refill pregabalin (LYRICA) 100 MG capsule Take 1 Capsule by mouth 2 times daily for 90 days. 60 Capsule 2 Naproxen Sodium (Aleve) 220 MG CAPS Aleve lidocaine (Lidoderm) 5 % patch Place 1 Patch on the skin every 24 hours. 10 Patch 3 Naproxen Sodium (ALEVE ORAL) Take by mouth. Pt. States he doesn't know the mg he takes. enoxaparin (Lovenox) 40 mg/0.4 mL injection Inject 0.4 mL under the skin 2 times daily. 33.6 mL 0 docusate sodium (Colace) 100 MG capsule Take 1 Capsule by mouth 2 times daily. 60 Capsule 0 No current facility-administered medications on file prior to visit. SOCIAL HISTORY: Social History Tobacco Use Smoking status: Former Current packs/day: 0.00 Types: Cigarettes Quit date: 01/19/2020 Years since quittin.8 Smokeless tobacco: Never Vaping Use Vaping Use: Never used FAMILY HISTORY No family history on file. Portions of record reviewed for pertinent issues: active problem list, medication list, allergies, family history, social history, notes from last encounter, lab results, and imaging. ASSESSMENT: Patient with neuropathic pain due to work related injury of drywall falling on to BLE in April 2021, s/p right femur IMN and left tibia IMN and ankle ORIF on 05/19/2021 in for follow up. He remains stable on current regimen, these medications reduce his pain to an acceptable level and allow him to remain functional with his daily activities. I will refill as below and bring back to clinic in 1 month. PLAN: 1) OARRS was reviewed today 2) Non opioid controlled substance agreement reviewed and signed 11/11/23 3) Continue Lyrica 100 mg BID and Lido patches PRN, patient reports good pain control with this 4) Current Morphine Equivalent Dose (MED)= 0 5) Patient is not being prescribed Medical Marijuana, any benzodiazepines, or Carisoprodol by any other healthcare providers 6)Refilled Lyrica 100 mg #60,no need for lido patches 7) RTC in 3 months Patient was advised that controlled substances may impair judgement, ability to process information, drive, or operate dangerous machinery. Controlled substances should not be mixed with alcohol or any other controlled medications without express direction from provider. Patient was informed of risks for misuse and potential for addiction and advised on safe storage and disposal of controlled substances. ITALO Espinal documented in this encounter [facility] 08-23-2023 History of Present illness Narrative PAIN MANAGEMENT FOLLOW-UP HPI: We are seeing this patient in our Pain Management clinic for chronic pain secondary to neuropathic pain due to work related injury of drywall falling on to BLE in April 2021, s/p right femur IMN and left tibia IMN and ankle ORIF on 05/19/2021. History was provided by the patient. Since the last visit for knee, ankle, leg pain, patient has had stable course. Pain level today is 2/10. Pain is currently described as dull, intermittent, and achingwith radiation to legs and without weakness of arms or legs, and is made worse by nothing.Patient denies any recent traumas or injuries. He is being prescribed Lyrica. He is reporting this regimen is improving his ability to perform his ADL's; is not manifesting any adverse effects (constipation, nausea, somnolence); is reporting an analgesic effect of pain relief from 8/10 to 1-2/10 with medication therapy; and is not demonstrating aberrant behaviors (psychiatric difficulties, attendance for office appointments, non-compliance, or deceitful activities). REVIEW OF SYSTEMS: Constitutional: Denies unexplained wt loss/gain, change in appetite, fever, and chills. Respiratory: negative symptoms (no cough, hemoptysis, SOB, KEARNEY, PND, wheezing) Cardiovascular: negative symptoms (No CP/Pressure/Tightness, palpitations, orthopnea, PND, SOB, KEARNEY, edema, MELENDEZ or vision change) Gastrointestinal: negative symptoms (no abdominal pain, anorexia, n/v, indigestion, constipation, or diarrhea) Musculoskeletal: BILATERAL LOWER EXTREMITIES : Denies bowel or bladder incontinence or saddle anesthesia. Neuro: Intermittent numbness and tingling in right foot and left foot. No physical exam due to video visit Patient is A&O x3, fully participating in the video visit , and appears well. Last OV: 04/13/23 Impression: 42 YOM , S.P WC injury right femur IMN and left tibia IMN and ankle ORIF in 04/2021 with neuropathic pain distal leg and ankle , non dermatomal , better Plan: 1. Discussed options OARRS reviewed Voltaren gel Lido patches Increase to Lyrica 100 BID Discussed sciatic and saphenus blocks if pain worsen F/U with COMPENSATION DIRECTOR in 3 M The impression and plan were discussed and explained in detail. All the questions were answered. Education was provided accordingly. The procedure was explained in detail, along with risks and potential side effects. The appropriate use of the medications, including storage, risks (including addiction) and potential sides effects were explained and discussed. Last MD CO EVAL and Plan: Same as last OV Procedures: None Pertinent Imaging/Labs: EMG 05/13/23 Mildly abnormal study 1. Nerve conduction studies revealed absence of a left superficial peroneal sensory response, which can be seen in left superficial peroneal sensory neuropathy. However, needle EMG of muscles innervated by the left superficial peroneal nerve was normal, pointing against any motor involvement if pathology truly present. 2. There is no electrodiagnostic evidence of left tibial neuropathy or overt left L3-S1 radiculopathy. Significance of the isolated increased amplitude motor unit noted in the left EDB is uncertain. XRAY RIGHT ANKLE 05/02/23 Healed tibial shaft fracture, fibular shaft fracture ankle fracture Narrative Interpreted By: OBEY GAUTHIER MD Patient Name: TOM ROONEY STUDY: ANKLE, COMPLETE, MIN 3 VIEWS; Left; 05/02/2023 4:13 pm INDICATION: pain M25.571: Ankle pain, right. COMPARISON: None. ACCESSION NUMBER(S): [id number] ORDERING CLINICIAN: OBEY GAUTHIER FINDINGS: Multiple views left ankle: Status post open reduction internal fixation: Healed ankle fracture in near anatomic alignment. Abundant bridging bone formation of tibial shaft fracture. TIB/FIB XRAY 05/02/23 Impression Healed mid shaft tibia and fibula fracture Narrative Interpreted By: OBEY GAUTHIER MD Patient Name: TOM ROONEY STUDY: TIBIA ; Left; 05/02/2023 4:13 pm INDICATION: pain M89.8X6: Pain in left tibia. COMPARISON: None. ACCESSION NUMBER(S): [id number] ORDERING CLINICIAN: OBEY GAUTHIER FINDINGS: Two views left tib fib: Healed mid shaft tibia fracture status post intramedullary nailing abundant bridging bone formation consistent with a healed tibial shaft fracture and fibula fracture. PRIOR MEDICAL HISTORY: No past medical history on file. PRIOR SURGICAL HISTORY: Past Surgical History: Procedure Laterality Date REDUCTION, OPEN, FEMUR, INTRAMEDULLARY MILES Right 05/19/2021 Procedure: REDUCTION, OPEN, FEMUR, INTRAMEDULLARY MILES; Surgeon: Turner Swenson DO; Location: PERIOPERATIVE SERVICES; Service: Orthopaedics REDUCTION, OPEN, TIBIA PILON Left 05/19/2021 Procedure: REDUCTION, OPEN, TIBIA PILON; Surgeon: Turner Swenson DO; Location: PERIOPERATIVE SERVICES; Service: Orthopaedics REDUCTION, OPEN, TIBIA, INTRAMEDULLARY MILES Left 05/19/2021 Procedure: REDUCTION, OPEN, TIBIA, INTRAMEDULLARY MILES; Surgeon: Turner Swenson DO; Location: PERIOPERATIVE SERVICES; Service: Orthopaedics MEDICATIONS: Current Outpatient Medications on File Prior to Visit Medication Sig Dispense Refill pregabalin (Lyrica) 50 MG capsule Take 2 Capsules by mouth 2 times daily for 90 days. 120 Capsule 2 amoxicillin-clavulanate (AUGMENTIN) 875-125 MG per tablet Take 1 Tablet by mouth every 12 hours. for 10 days Naproxen Sodium (Aleve) 220 MG CAPS Aleve lidocaine (Lidoderm) 5 % patch Place 1 Patch on the skin every 24 hours. 10 Patch 3 Naproxen Sodium (ALEVE ORAL) Take by mouth. Pt. States he doesn't know the mg he takes. enoxaparin (Lovenox) 40 mg/0.4 mL injection Inject 0.4 mL under the skin 2 times daily. 33.6 mL 0 docusate sodium (Colace) 100 MG capsule Take 1 Capsule by mouth 2 times daily. 60 Capsule 0 No current facility-administered medications on file prior to visit. SOCIAL HISTORY: Social History Tobacco Use Smoking status: Former Types: Cigarettes Quit date: 01/19/2020 Years since quittin.5 Smokeless tobacco: Never Vaping Use Vaping Use: Never used FAMILY HISTORY No family history on file. Portions of record reviewed for pertinent issues: active problem list, medication list, allergies, family history, social history, notes from last encounter, lab results, and imaging. ASSESSMENT: Patient with neuropathic pain due to work related injury of drywall falling on to BLE in April 2021, s/p right femur IMN and left tibia IMN and ankle ORIF on 05/19/2021 in for follow up. He remains stable on current regimen, these medications reduce his pain to an acceptable level and allow him to remain functional with his daily activities. I will refill as below and bring back to clinic in 3 months. PLAN: 1) OARRS was reviewed today 2) Will need non opioid agreement at next in person visit 3) Continue Lyrica 100 mg BID and Lido patches PRN, patient reports good pain control with this 4) Current Morphine Equivalent Dose (MED)= 0 5) Patient is not being prescribed Medical Marijuana, any benzodiazepines, or Carisoprodol by any other healthcare providers 6)Refilled Lyrica 100 mg #60,no need for lido patches 7) RTC in 3 months Patient was advised that controlled substances may impair judgement, ability to process information, drive, or operate dangerous machinery. Controlled substances should not be mixed with alcohol or any other controlled medications without express direction from provider. Patient was informed of risks for misuse and potential for addiction and advised on safe storage and disposal of controlled substances. ITALO Espinal documented in this encounter [facility] 04-27-2023 History of Present illness Narrative Post ORIF ankle, IM nail tibia and ORIF fibula. Fractures have united. He is having some neuropathic pain down the leg does have some shooting pain at times the leg. Some occasional knee discomfort present. Has full painless knee range of motion stable ligamentous exam of the knee. No tenderness over the fracture site. Has good ankle range of motion. His quadriceps are atrophied on the left. Discussed additional physical therapy to strengthen his quadriceps musculature this is likely contributing to his knee discomfort states felt as though his knee was going to give way 1 point in time we did discuss that this is not uncommon the patient's quadricep atrophy after injury such as this. Recommend therapy focused on this area. In regards to his neuropathic pain is being treated by Dr. Black. Pt requested an EMG which we did place today as an order this as there was no location which is nerve pain is coming from. All his questions were answered. [facility] Orthopaedic Trauma/Adult Reconstruction 04/27/23 Orthopaedic Surgery Clinic Note Tom Rooney returns today for follow up of R femur IMN and left tibia IMN and ankle ORIF in 04/[address] Swenson. Current pain meds: lyrica, naproxen and lodocaine patches. Seeing Dr. Cowan for pain management. States he is coming in today to inquire about an EMG for the left nerve pain he is still having after his surgery. Also states that he is having left knee pain. Describes tingling sensation and intermittent shooting pain with stepping. There were no vitals filed for this visit. Physical Exam: GEN: NAD LLE: incisions well healed. No signs of infection. No calf TTP. EHL/TA/Gastroc intact to motor function. Sensation intact L5-S1. DP/PT pulses intact. EHL firing. RADIOGRAPHS: XR left tibia displays intact intramedullary miles and screws, unchanged from previous imaging with satisfactory lining. ASSESSMENT: >1 year s/p R femur IMN and left tibia IMN PLAN: - Weight bearing: weight bear as tolerated bilateral lower extremity - EMG referral for assessment of nerve pain - PT referral for L knee pain - F/u as needed Chinyere Curry PA-C 04/27/23 documented in this encounter [facility] 04-27-2023 Instructions Chinyere Curry PA-C - 04/27/2023 12:27 PM EDT Call to schedule PT. Call to schedule EMG. Follow up as needed. documented in this encounter [facility] 02-13-2023 Hospital Discharge instructions Patient Education 02/12/2023 22:37:43 Upper Respiratory Infection, Adult Upper Respiratory Infection, Adult An upper respiratory infection (URI) is a common viral infection of the nose, throat, and upper air passages that lead to the lungs. The most common type of URI is the common cold. URIs usually get better on their own, without medical treatment. What are the causes? A URI is caused by a virus. You may catch a virus by: Breathing in droplets from an infected person's cough or sneeze. Touching something that has been exposed to the virus (contaminated) and then touching your mouth, nose, or eyes. What increases the risk? You are more likely to get a URI if: You are very young or very old. It is mayco or winter. You have close contact with others, such as at a daycare, school, or health care facility. You smoke. You have long-term (chronic) heart or lung disease. You have a weakened disease-fighting (immune) system. You have nasal allergies or asthma. You are experiencing a lot of stress. You work in an area that has poor air circulation. You have poor nutrition. What are the signs or symptoms? A URI usually involves some of the following symptoms: Runny or stuffy (congested) nose. Sneezing. Cough. Sore throat. Headache. Fatigue. Fever. Loss of appetite. Pain in your forehead, behind your eyes, and over your cheekbones (sinus pain). Muscle aches. Redness or irritation of the eyes. Pressure in the ears or face. How is this diagnosed? This condition may be diagnosed based on your medical history and symptoms, and a physical exam. Your health care provider may use a cotton swab to take a mucus sample from your nose (nasal swab). This sample can be tested to determine what virus is causing the illness. How is this treated? URIs usually get better on their own within 7 10 days. You can take steps at home to relieve your symptoms. Medicines cannot cure URIs, but your health care provider may recommend certain medicines to help relieve symptoms, such as: [id number] cold medicines. Cough suppressants. Coughing is a type of defense against infection that helps to clear the respiratory system, so take these medicines only as recommended by your health care provider. Fever-reducing medicines. Follow these instructions at home: Activity Rest as needed. If you have a fever, stay home from work or school until your fever is gone or until your health care provider says you are no longer contagious. Your health care provider may have you wear a face mask to prevent your infection from spreading. Relieving symptoms Gargle with a salt-water mixture 3 4 times a day or as needed. To make a salt-water mixture, completely dissolve 1 tsp of salt in 1 cup of warm water. Use a cool-mist humidifier to add moisture to the air. This can help you breathe more easily. Eating and drinking Drink enough fluid to keep your urine pale yellow. Eat soups and other clear broths. General instructions Take flcm-rib-pxnaaxu and prescription medicines only as told by your health care provider. These include cold medicines, fever reducers, and cough suppressants. Do not use any products that contain nicotine or tobacco, such as cigarettes and e-cigarettes. If you need help quitting, ask your health care provider. Stay away from secondhand smoke. Stay up to date on all immunizations, including the yearly (annual) flu vaccine. Keep all follow-up visits as told by your health care provider. This is important. How to prevent the spread of infection to others URIs can be passed from person to person (are contagious). To prevent the infection from spreading: ?Wash your hands often with soap and water. If soap and water are not available, use hand bag sealer. ?Avoid touching your mouth, face, eyes, or nose. ?Cough or sneeze into a tissue or your sleeve or elbow instead of into your hand or into the air. Contact a health care provider if: You are getting worse instead of better. You have a fever or chills. Your mucus is brown or red. You have yellow or brown discharge coming from your nose. You have pain in your face, especially when you bend forward. You have swollen neck glands. You have pain while swallowing. You have white areas in the back of your throat. Get help right away if: You have shortness of breath that gets worse. You have severe or persistent: ?Headache. ?Ear pain. ?Sinus pain. ?Chest pain. You have chronic lung disease along with any of the following: ?Wheezing. ?Prolonged cough. ?Coughing up blood. ?A change in your usual mucus. You have a stiff neck. You have changes in your: ?Vision. ?Hearing. ?Thinking. ?Mood. Summary An upper respiratory infection (URI) is a common infection of the nose, throat, and upper air passages that lead to the lungs. A URI is caused by a virus. URIs usually get better on their own within 7 10 days. Medicines cannot cure URIs, but your health care provider may recommend certain medicines to help relieve symptoms. This information is not intended to replace advice given to you by your health care provider. Make sure you discuss any questions you have with your health care provider. Document Released: 05/10/2002 Document Revised: 11/22/2019 Document Reviewed: 06/30/2018 [employer] Patient Education [employer]. Follow Up Care 02/12/2023 20:48:56 With:Jovita Martinez Address: [address] [place] [phone] Business (1) When:02/15/2023 Comments:Call the office of your primary care doctor to arrange for follow-up within the above-stated timeframe. Follow-up with your primary care doctor about this ED visit. You should review your labs, imaging, and diagnoses from this ED visit with your primary care physician. If you were prescribed medications you should discuss possible side-effects and drug interactions with your pharmacist. Call 911 or go to the nearest Emergency Department if you develop any new or worsening symptoms. [facility] 02-07-2023 Evaluation note Encounter Date Diagnosis Assessment Notes Jan, Sore throat (ICD-10 - J02.9) Jan, Strep pharyngitis (ICD-10 - J02.0) Strep throat material was printed Plenty fluids, get plenty of rest. Take the amoxicillin as prescribed until gone. Take Tylenol or Motrin as needed for aches pains or fevers. Off work today and tomorrow. Follow-up with your family physician if no improvement in 2 to 3 days. [facility] 02-17-2023 History of Present illness Narrative* Mauricio Cowan MD - 01/14/2023 9:01 AM EST Office Note First Office Visit: None Today' Date: 01/14/2023 Last Office Visit: None Chief complaint: HPI: Pt is a pleasent 42 years old male , who presents for follow up evaluation. Pain little better , some times with numness Lyrica help little . No side effects History S/P work related injury complains of s/p right femur IMN and left tibia IMN and ankle ORIF in 04/2021.s/p drywall fall onto BLE on 05/19. Patient was at work in the morning when ~1400 lbs of drywall fell onto his BLE. Back to work now , pain is intermittent sharp electric like in the lower third of the leg worse with certain activities , radiant to below knee, also ankle pain around scare medial and lateral side , sensitive to touch ,no Colour or temp changes Tried gabapentin , muscle relaxant , NSAID Imaging: X rays No past medical history on file. Past Surgical History: Procedure Laterality Date REDUCTION, OPEN, FEMUR, INTRAMEDULLARY MILES Right 05/19/2021 Procedure: REDUCTION, OPEN, FEMUR, INTRAMEDULLARY MILES; Surgeon: Turner Swenson DO; Location: PERIOPERATIVE SERVICES; Service: Orthopaedics REDUCTION, OPEN, TIBIA PILON Left 05/19/2021 Procedure: REDUCTION, OPEN, TIBIA PILON; Surgeon: Turner Swenson DO; Location: PERIOPERATIVE SERVICES; Service: Orthopaedics REDUCTION, OPEN, TIBIA, INTRAMEDULLARY MILES Left 05/19/2021 Procedure: REDUCTION, OPEN, TIBIA, INTRAMEDULLARY MILES; Surgeon: Turner Swenson DO; Location: PERIOPERATIVE SERVICES; Service: Orthopaedics No family history on file. Social History Socioeconomic History Marital status: Tobacco Use Smoking status: Former Types: Cigarettes Quit date: 01/19/2020 Years since quittin.9 Smokeless tobacco: Never Vaping Use Vaping Use: Never used Current Outpatient Medications: Naproxen Sodium (Aleve) 220 MG Angella SMITH, Disp: , Rfl: pregabalin (Lyrica) 50 MG capsule, Take 1 Capsule by mouth 2 times daily for 90 days., Disp: 60 Capsule, Rfl: 2 lidocaine (Lidoderm) 5 % patch, Place 1 Patch on the skin every 24 hours., Disp: 10 Patch, Rfl: 3 Naproxen Sodium (ALEVE ORAL), Take by mouth. Pt. States he doesn't know the mg he takes., Disp: , Rfl: enoxaparin (Lovenox) 40 mg/0.4 mL injection, Inject 0.4 mL under the skin 2 times daily., Disp: 33.6 mL, Rfl: 0 docusate sodium (Colace) 100 MG capsule, Take 1 Capsule by mouth 2 times daily., Disp: 60 Capsule, Rfl: 0 No Known Allergies ROS: Positive for pain, Negative for Fever/ chills Changes in weight, energy No bleeding, changes in bruising No chest pain No changes in breathing No changes in mood No changes in vision No changes in appetite No changes in bowel No changes in bladder No changes is allergies PE: Vitals: 01/14/23 0858 BP: 126/72 Pulse: 60 Resp: 18 Temp: 98.7 F (37.1 C) SpO2: 99% General: Pleasant, no distress HEENT: NC/ AT. PERRLA CV: Radial pulses intact Pulm: No distress Ext: No edema Neuromusculoskeletal: Lumbar: normal Range of motion. Facet loading. Min Tenderness. Neg SL Hip:normal Range of motion. Tenderness SI: no Tenderness. Level. Patricks Knee: intact Range of motion. No Tenderness. No Swelling. Min Crepitis Sensitivity over anterior lower tibia , no Colour or atrophic changes , sensitivity around ankle scars anterior aspect Reflexes: normal Bicep. Brachiradialis. Knee. Ankles Strength: 5/5 globally except Sensory: Grossly intact Skin: No bruising, erythema Gait: Normal Impression: 42 YOM , S.P WC injury right femur IMN and left tibia IMN and ankle ORIF in 04/2021 with neuropathicpain distal leg and ankle , non dermatomal Plan: 1. Discussed options OARRS reviewed Voltaren gel Lido patches Increase to Lyrica 100 BID Discussed sciatic and saphenus blocks if pain worsen F/U with COMPENSATION DIRECTOR in 3 M The impression and plan were discussed and explained in detail. All the questions were answered. Education was provided accordingly. The procedure was explained in detail, along with risks and potential side effects. The appropriate use of the medications, including storage, risks (including addiction) and potential sides effects were explained and discussed. Mauricio Cowan MD * Antonietta Short - 01/14/2023 8:57 AM EST Patient was identified by name and date of . Perla Short Patient at risk for falls:No Falls Risk protocol implemented: No documented in this [id number] History of Present illness Narrative* SupaRamya bailey - 10/13/2022 8:27 AM EST Patient was identified by name and date of . Ramya Grantjulián Patient at risk for falls:No Falls Risk protocol implemented: No * Mauricio Cowan MD - 10/13/2022 8:20 AM EST Office Note First Office Visit: None Today' Date: 10/12/2022 Last Office Visit: None Chief complaint: HPI: Pt is a pleasent 42 years old male , who presents for evaluation. S/P work related injury complains of s/p right femur IMN and left tibia IMN and ankle ORIF in 04/2021.s/p drywall fall onto BLE on 05/19. Patient was at work in the morning when ~1400 lbs of drywall fell onto his BLE. Back to work now , pain is intermittent sharp electric like in the lower third of the leg worse with certain activities , radiant to below knee, also ankle pain around scare medial and lateral side , sensitive to touch ,no Colour or temp changes Tried gabapentin , muscle relaxant , NSAID Imaging: X rays Procedures: None Date of board of pharmacy review: None Date of opioid risk screening/ pain psych: None Date of opioid agreement and consent: None Date of urine drug screen: None Date of random pill count: None Prescribed medications: None No past medical history on file. Past Surgical History: Procedure Laterality Date REDUCTION, OPEN, FEMUR, INTRAMEDULLARY MILES Right 05/19/2021 Procedure: REDUCTION, OPEN, FEMUR, INTRAMEDULLARY MILES; Surgeon: Turner Swenson DO; Location: PERIOPERATIVE SERVICES; Service: Orthopaedics REDUCTION, OPEN, TIBIA PILON Left 05/19/2021 Procedure: REDUCTION, OPEN, TIBIA PILON; Surgeon: Turner Swenson DO; Location: PERIOPERATIVE SERVICES; Service: Orthopaedics REDUCTION, OPEN, TIBIA, INTRAMEDULLARY MILES Left 05/19/2021 Procedure: REDUCTION, OPEN, TIBIA, INTRAMEDULLARY MILES; Surgeon: Turner Swenson DO; Location: PERIOPERATIVE SERVICES; Service: Orthopaedics No family history on file. Social History Socioeconomic History Marital status: Tobacco Use Smoking status: Former Types: Cigarettes Quit date: 01/19/2020 Years since quittin.7 Smokeless tobacco: Never Vaping Use Vaping Use: Never used Current Outpatient Medications: Naproxen Sodium (ALEVE ORAL), Take by mouth. Pt. States he doesn't know the mg he takes., Disp: , Rfl: acetaminophen (TYLENOL) 500 MG tablet, Acetaminophen Active 500 MG PO Q4H 120 June 04, 2021 10:51am, Disp: , Rfl: oxyCODONE 5 MG immediate release tablet, Oxycodone Active 5 MG PO Every 4 hours 40 7 June 04279915:51am, Disp: , Rfl: aspirin 81 MG enteric coated tablet, Take 81 mg by mouth 2 times daily. (Patient not taking: Reported on 09/21/2021), Disp: , Rfl: ibuprofen (MOTRIN) 600 MG tablet, Ibuprofen Active 600 MG PO Q6H 60 June 04, 2021 10:51am (Patientnot taking: Reported on 09/21/2021), Disp: , Rfl: iron polysaccharides (NIFEREX) 150 MG capsule, Polysaccharide Iron Complex (Ferrex 150) 150 mg ironCapsule Active 150 MG PO Every morning 30 June 04, 2021 10:51am (Patient not taking: Reported on 09/21/2021), Disp: , Rfl: SENNA CO, Sennosides (Senna Lax) 8.6 mg Tablet Active 2 TAB PO DAILY@12 60 June 04, 2021 10:51am (Patient not taking: Reported on 09/21/2021), Disp: , Rfl: gabapentin (NEURONTIN) 100 MG capsule, Gabapentin Active 100 MG PO Three times daily 90 June 04, 2021 10:51am (Patient not taking: Reported on 09/21/2021), Disp: , Rfl: cyclobenzaprine (FLEXERIL) 10 MG tablet, TAKE 1 TABLET BY MOUTH EVERY EIGHT HOURS NEEDED FOR MUSCLE SPASM (Patient not taking: Reported on 11/30/2021), Disp: , Rfl: omeprazole (PRILOSEC) 20 MG capsule, Take 20 mg by mouth daily. (Patient not taking: Reported on 09/21/2021), Disp: , Rfl: enoxaparin (Lovenox) 40 mg/0.4 mL injection, Inject 0.4 mL under the skin 2 times daily., Disp: 33.6 mL, Rfl: 0 docusate sodium (Colace) 100 MG capsule, Take 1 Capsule by mouth 2 times daily., Disp: 60 Capsule, Rfl: 0 No Known Allergies ROS: Positive for pain, Negative for Fever/ chills Changes in weight, energy No bleeding, changes in bruising No chest pain No changes in breathing No changes in mood No changes in vision No changes in appetite No changes in bowel No changes in bladder No changes is allergies PE: There were no vitals filed for this visit. General: Pleasant, no distress HEENT: NC/ AT. PERRLA CV: Radial pulses intact Pulm: No distress Ext: No edema Neuromusculoskeletal: Lumbar: normal Range of motion. Facet loading. Min Tenderness. Neg SL Hip:normal Range of motion. Tenderness SI: no Tenderness. Level. Patricks Knee: intact Range of motion. No Tenderness. No Swelling. Min Crepitis Sensitivity over anterior lower tibia , no Colour or atrophic changes , sensitivity around ankle scars anterior aspect Reflexes: normal Bicep. Brachiradialis. Knee. Ankles Strength: 5/5 globally except Sensory: Grossly intact Skin: No bruising, erythema Gait: Normal Impression: 42 YOM , S.P WC injury right femur IMN and left tibia IMN and ankle ORIF in 04/2021 with neuropathicpain distal leg and ankle , non dermatomal Plan: 1. Discussed options OARRS reviewed Voltaren gel Lido patches Lyrica 50 BID Discussed sciatic and saphenus blocks if pain worsen The impression and plan were discussed and explained in detail. All the questions were answered. Education was provided accordingly. The procedure was explained in detail, along with risks and potential side effects. The appropriate use of the medications, including storage, risks (including addiction) and potential sides effects were explained and discussed. Follow-up: 2m Mauricio Cowan MD documented in this [id number] History of Present illness Narrative* Kylee Cam MTA - 08/16/2022 12:09 PM EDT Patient at risk for falls:No Falls Risk protocol implemented: No * Alison Hogan MD - 08/16/2022 12:03 PM EDT Ortho F/U Luna is a 41 year old male who presents s/p right femur IMN and left tibia IMN and ankle ORIF in 04/2021. Today he states that he has no pain complaints or issues, ambulating well without any assistance. He does endorse some numbness in the first webspace of the left foot. No past medical history on file. Past Surgical History: Procedure Laterality Date REDUCTION, OPEN, FEMUR, INTRAMEDULLARY MILES Right 05/19/2021 Procedure: REDUCTION, OPEN, FEMUR, INTRAMEDULLARY MILES; Surgeon: Turner Swenson DO; Location: PERIOPERATIVE SERVICES; Service: Orthopaedics REDUCTION, OPEN, TIBIA PILON Left 05/19/2021 Procedure: REDUCTION, OPEN, TIBIA PILON; Surgeon: Turner Swenson DO; Location: PERIOPERATIVE SERVICES; Service: Orthopaedics REDUCTION, OPEN, TIBIA, INTRAMEDULLARY MILES Left 05/19/2021 Procedure: REDUCTION, OPEN, TIBIA, INTRAMEDULLARY MILES; Surgeon: Turner Swenson DO; Location: PERIOPERATIVE SERVICES; Service: Orthopaedics Social History Socioeconomic History Marital status: Tobacco Use Smoking status: Former Types: Cigarettes Quit date: 01/19/2020 Years since quittin.5 Smokeless tobacco: Never Vaping Use Vaping Use: Never used Current Outpatient Medications on File Prior to Visit Medication Sig Dispense Refill Naproxen Sodium (ALEVE ORAL) Take by mouth. Pt. States he doesn't know the mg he takes. acetaminophen (TYLENOL) 500 MG tablet Acetaminophen Active 500 MG PO Q4H 120 June 04, 2021 10:51am oxyCODONE 5 MG immediate release tablet Oxycodone Active 5 MG PO Every 4 hours 40 7 June 04, 2021 10:51am aspirin 81 MG enteric coated tablet Take 81 mg by mouth 2 times daily. (Patient not taking: Reported on 09/21/2021) ibuprofen (MOTRIN) 600 MG tablet Ibuprofen Active 600 MG PO Q6H 60 June 04, 2021 10:51am (Patient not taking: Reported on 09/21/2021) iron polysaccharides (NIFEREX) 150 MG capsule Polysaccharide Iron Complex (Ferrex 150) 150 mg iron Capsule Active 150 MG PO Every morning 30 June 04, 2021 10:51am (Patient not taking: Reported on 09/21/2021) SENNA CO Sennosides (Senna Lax) 8.6 mg Tablet Active 2 TAB PO DAILY@12 60 June 04, 2021 10:51am (Patient not taking: Reported on 09/21/2021) gabapentin (NEURONTIN) 100 MG capsule Gabapentin Active 100 MG PO Three times daily 90 June 04, 2021 10:51am (Patient not taking: Reported on 09/21/2021) cyclobenzaprine (FLEXERIL) 10 MG tablet TAKE 1 TABLET BY MOUTH EVERY EIGHT HOURS NEEDED FOR MUSCLE SPASM (Patient not taking: Reported on 11/30/2021) omeprazole (PRILOSEC) 20 MG capsule Take 20 mg by mouth daily. (Patient not taking: Reported on 09/21/2021) enoxaparin (Lovenox) 40 mg/0.4 mL injection Inject 0.4 mL under the skin 2 times daily. 33.6 mL 0 docusate sodium (Colace) 100 MG capsule Take 1 Capsule by mouth 2 times daily. 60 Capsule 0 No current facility-administered medications on file prior to visit. Review of Systems: ROS Gen: denies fevers, chills Eyes: denies vision changes ENT: denies sore throat Resp: denies cough, weezing CV: denies chest pain Endocrine: denies fatigue GI: denies abdominal pain MSK: as above Skin: denies rash Neuro: denies numbness, tingling There were no vitals filed for this visit. Physical Exam: General: No acute distress. Alert. HEENT: NC/AT Lungs: No audible wheezes. CV: RR to peripheral palpation Neurologic: CN 2-12 grossly intact. Skin: intact Extremities: RLE: no edema/erythema Fires EHL/FHL/TA/Gastrocs SILT ruiz/sa/dp/sp/tib 2+ DP LLE: Incisions CDI, well-healed no edema/erythema Fires EHL/FHL/TA/Gastrocs SILT ruiz/sa/dp/sp/tib 2+ DP Some numbness in 1st webspace, SILT in all other areas of lower extremity Radiographs: AP and lateral radiographs of the R femur, L tibia (04/05/22): They display healing fractures with appropriate hardware placement. Assessment: Luna is a 41 year old male who presents s/p right femur IMN and left tibia IMN and ankle ORIF in 04/2021 with adequate healing. Plan: -WBAT -Fractures healed -gabapentin for 1st webspace paresthesias, likely DPN irritation -F/u Dr. Garcia for pain management -F/u PRN for orthopedic injuries Alison Hogan MD Ortho Trauma Fellow Pager: [phone] documented in this [id number] Instructions* Patient Instructions* Alison Hogan MD - 08/16/2022 12:04 PM EDT -WBAT -Fractures healed -gabapentin for 1st webspace paresthesias, likely DPN irritation -F/u Dr. Garcia for pain management -F/u PRN for orthopedic injuries documented in this [id number] History of Present illness Narrative* Turner Swenson DO - 04/05/2022 3:18 PM EDT Teaching Physician Note: I saw and evaluated the patient. I personally obtained the crowder and critical portions of the historyand physical exam. I reviewed the resident's documentation and discussed the patient with the resident. I agree with the resident's medical decision making as documented in the resident's note. Turner Swenson DO * Bg Gomez MD - 04/05/2022 11:09 AM EDT Ortho F/U Luna is a 41 year old male who presents s/p right femur IMN and left tibia IMN and ankle ORIF in 04/2021. Most recent visit in November 2021, femur union with tibia XRs demonstrating good alignment, bridging bone on at least 3/4 cortices. Central defect.No recommendations for bone graft at that time. Today he states that he has no complaints or issues, ambulating well without any assistance. No past medical history on file. Past Surgical History: Procedure Laterality Date REDUCTION, OPEN, FEMUR, INTRAMEDULLARY MILES Right 05/19/2021 Procedure: REDUCTION, OPEN, FEMUR, INTRAMEDULLARY MILES; Surgeon: Turner Swenson DO; Location: PERIOPERATIVE SERVICES; Service: Orthopaedics REDUCTION, OPEN, TIBIA PILON Left 05/19/2021 Procedure: REDUCTION, OPEN, TIBIA PILON; Surgeon: Turner Swenson DO; Location: PERIOPERATIVE SERVICES; Service: Orthopaedics REDUCTION, OPEN, TIBIA, INTRAMEDULLARY MILES Left 05/19/2021 Procedure: REDUCTION, OPEN, TIBIA, INTRAMEDULLARY MILES; Surgeon: Turner Swenson DO; Location: PERIOPERATIVE SERVICES; Service: Orthopaedics Social History Socioeconomic History Marital status: Tobacco Use Smoking status: Former Smoker Quit date: 01/19/2020 Years since quittin.2 Smokeless tobacco: Never Used Vaping Use Vaping Use: Never used Current Outpatient Medications on File Prior to Visit Medication Sig Dispense Refill Naproxen Sodium (ALEVE ORAL) Take by mouth. Pt. States he doesn't know the mg he takes. acetaminophen (TYLENOL) 500 MG tablet Acetaminophen Active 500 MG PO Q4H 120 June 04, 2021 10:51am oxyCODONE 5 MG immediate release tablet Oxycodone Active 5 MG PO Every 4 hours 40 7 June 04, 2021 10:51am aspirin 81 MG enteric coated tablet Take 81 mg by mouth 2 times daily. (Patient not taking: Reported on 09/21/2021) ibuprofen (MOTRIN) 600 MG tablet Ibuprofen Active 600 MG PO Q6H 60 June 04, 2021 10:51am (Patient not taking: Reported on 09/21/2021) iron polysaccharides (NIFEREX) 150 MG capsule Polysaccharide Iron Complex (Ferrex 150) 150 mg iron Capsule Active 150 MG PO Every morning 30 June 04, 2021 10:51am (Patient not taking: Reported on 09/21/2021) SENNA CO Sennosides (Senna Lax) 8.6 mg Tablet Active 2 TAB PO DAILY@12 60 June 04, 2021 10:51am (Patient not taking: Reported on 09/21/2021) gabapentin (NEURONTIN) 100 MG capsule Gabapentin Active 100 MG PO Three times daily 90 June 04, 2021 10:51am (Patient not taking: Reported on 09/21/2021) cyclobenzaprine (FLEXERIL) 10 MG tablet TAKE 1 TABLET BY MOUTH EVERY EIGHT HOURS NEEDED FOR MUSCLE SPASM (Patient not taking: Reported on 11/30/2021) omeprazole (PRILOSEC) 20 MG capsule Take 20 mg by mouth daily. (Patient not taking: Reported on 09/21/2021) enoxaparin (Lovenox) 40 mg/0.4 mL injection Inject 0.4 mL under the skin 2 times daily. 33.6 mL 0 docusate sodium (Colace) 100 MG capsule Take 1 Capsule by mouth 2 times daily. 60 Capsule 0 No current facility-administered medications on file prior to visit. Review of Systems: ROS Gen: denies fevers, chills Eyes: denies vision changes ENT: denies sore throat Resp: denies cough, weezing CV: denies chest pain Endocrine: denies fatigue GI: denies abdominal pain MSK: as above Skin: denies rash Neuro: denies numbness, tingling There were no vitals filed for this visit. Physical Exam: General: No acute distress. Alert. HEENT: NC/AT Lungs: No audible wheezes. CV: RR to peripheral palpation Neurologic: CN 2-12 grossly intact. Skin: intact Extremities: RLE: no edema/erythema Fires EHL/FHL/TA/Gastrocs SILT ruiz/sa/dp/sp/tib 2+ DP LLE: Incisions CDI, well-healed no edema/erythema Fires EHL/FHL/TA/Gastrocs SILT ruiz/sa/dp/sp/tib 2+ DP Radiographs: AP and lateral radiographs of the R femur, L tibia (04/05/22): They display healing fractures with appropriate hardware placement. Assessment: Luna is a 41 year old male who presents s/p right femur IMN and left tibia IMN and ankle ORIF in 04/2021 with adequate healing. Plan: - Return to clinic PRN Bg Gomez MD ([facility]) Orthopaedic Surgery, PGY-3 * Shahida Camarena RN - 04/05/2022 11:03 AM EDT Patient was identified by name and date of . Shahida Camarena RN Patient at risk for falls:No Falls Risk protocol implemented: No documented in this [id number] Evaluation note* Encounter Date Diagnosis Assessment Notes Treatment Notes Treatment Clinical Notes Sep, Displaced comminuted fracture of shaft of left tibia, subsequent encounter for closed fracture with delayed healing (ICD-10 - S82.252G) 41 y/o male here for follow up. He is no longer using a walker or a brace with ambulation. He states he has not yet returned back to work, he notes Dr. Swenson is concerned about slow healing of the left ankle. He states he continues with physical therapy. At his last office visit he was referred to counselling for possible PTSD, he states he was able to speak to one over the phone. Overall he is doing very well, I recommend he continue to follow with psych and his orthopedic surgeon. I also feel he should continue PT. He is encouraged to call the office should he need to be seen again in the future. Sep, Displaced comminuted fracture of shaft of right femur, initial encounter for closed fracture (ICD-10 - S72.351A) Stable, follow up as needed. [facility] Other 06-22-2021 History of Present illness Narrative* History of Present Illness * 42-year-old male with history of tibial shaft fracture, fibula fracture as well as ankle fracture date of injury May 19, 2021 underwent intramedullary nailing and open reduction internal fixation right ankle by Dr. Swenson at [facility]. Patient presents today for a second opinion. Patient has been following closely with Dr. Swenson and is going to follow-up his nerve testing studies of his lower extremity within the coming weeks. Presents today for another evaluation regarding his leg to see if there is anything to do about some residual symptoms that he has a result of injury to include sharp painsand occasional feeling of discomfort about the shaft of the tibia. * Review of Systems * GENERAL: Negative * GI: Negative * MUSCULOSKELETAL: See HPI * SKIN: Negative * NEURO: Negative * Physical Exam * Focused examination of right lower extremity: Prior incisions well-healed no surrounding erythema compartments are soft and compressible. Active dorsiflexion plantarflexion. Palpable dorsalis pedis pulse. Minimal if any tenderness palpation tibial shaft. Nontender palpation about the ankle knee or leg throughout. * Imaging * X-rays as follows my interpretation as follows: Right tibia: Status post intramedullary nail tibia there is abundant bridging bone consistent with a healed tibial shaft fracture * X-rays right ankle: Status post open reduction internal fixation anatomic alignment fracture line consolidation obliteration consistent with a healed ankle fracture * Assessment * 42-year-old male with right healed tibial shaft fracture and ankle fracture * Plan * Discussed with patient that I want him to continue to follow with Dr. Swenson x- rays do appear that this injury is completely healed. If he does have continued pain about the tibia patient may benefit from a CT scan to evaluate complete union. X-rays do appear that this fracture is completely united h owever patient is hoping for some reassurance. Discussed with him that these injuries can take years to completely resolve and potentially never well. He did suffer a severe injury and that there areresidual deficits as result. Discussed with patient that he is theresa to have his leg. Discussed with Tom that I want him to return if he has issues with his leg or feels like he is not making progress with his primary surgeon. I did discuss the patient from a continuity of care standpoint that it is best that the treating surgeon take care of this issue. He agrees with this and is happy with the care receiving by Dr. Swenson. -[place] [facility] Work Phone: Evaluation + Plan note No data available for this section [facility] Diagnosis Closed displaced comminuted fracture of shaft of left tibia, initial encounter- Primary Closed displaced spiral fracture of shaft of right femur with routine healing, subsequent encounter Closed displaced comminuted fracture of shaft of left tibia, initial encounter Closed displaced spiral fracture of shaft of right femur with routine healing, subsequent encounter [facility] Diagnosis Closed displaced comminuted fracture of shaft of left tibia, initial encounter- Primary [facility]* Diagnosis Closed displaced comminuted fracture of shaft of left tibia, initial encounter Closed displaced spiral fracture of shaft of right femur with routine healing, subsequent encounter [facility] noteNo InformationNos[facility] [employer] Other Evaluation note* Diagnosis Paresthesia of left lower extremity- Primary Critical polytrauma [facility]* Diagnosis Pain syndrome, chronic- Primary Chronic pain syndrome Neuropathic pain Neuralgia, neuritis, and radiculitis, unspecified Body mass index (BMI) 21.0-21.9, adult [facility]* Diagnosis Neuropathic pain- Primary Neuralgia, neuritis, and radiculitis, unspecified Pain syndrome, chronic Chronic pain syndrome (BWC) Displaced comminuted fracture of shaft of left tibia, subsequent encounter for closed fracture with delayed healing Body mass index (BMI) 22.0-22.9, adult documented [facility] this encounter [facility]No assessment information [facility] Work Phone: Evaluation note* Diagnosis Closed displaced spiral fracture of shaft of right femur with routine healing, subsequent encounter- Primary Closed trimalleolar fracture of ankle with high fibular fracture [facility]* Diagnosis Closed trimalleolar fracture of ankle with high fibular fracture- Primary Nerve pain Neuralgia, neuritis, and radiculitis, unspecified [facility]* Diagnosis Neuropathic pain Neuralgia, neuritis, and radiculitis, unspecified Pain syndrome, chronic Chronic pain syndrome [facility]* Diagnosis Closed displaced spiral fracture of shaft of right femur with routine healing, subsequent encounter Closed trimalleolar fracture of ankle with high fibular fracture [facility]* Diagnosis (BWC) Displaced comminuted fracture of shaft of left tibia, subsequent encounter for closed fracture with delayed healing- Primary Neuropathic pain Neuralgia, neuritis, and radiculitis, unspecified Pain syndrome, chronic Chronic pain syndrome [facility]* Diagnosis ([facility]WC) Displaced comminuted fracture of shaft of left tibia, subsequent encounter for closed fracture with delayed healing- Primary Neuropathic pain Neuralgia, neuritis, and radiculitis, unspecified Pain syndrome, chronic Chronic pain syndrome [facility]* Diagnosis (BWC) Displaced comminuted fracture of shaft of left tibia, subsequent encounter for closed fracture with delayed healing- Primary Neuropathic pain Neuralgia, neuritis, and radiculitis, unspecified Pain syndrome, chronic Chronic pain syndrome [facility]* Diagnosis Pain in left jimenez [facility]* Diagnosis (BWC) Displaced comminuted fracture of shaft of left tibia, subsequent encounter for closed fracture with delayed healing- Primary Neuropathic pain Neuralgia, neuritis, and radiculitis, unspecified Pain syndrome, chronic Chronic pain syndrome Encounter for medication monitoring Encounter for therapeutic drug monitoring [facility]* Diagnosis Neuropathic pain Neuralgia, neuritis, and radiculitis, unspecified Pain syndrome, chronic Chronic pain syndrome (BWC) Displaced comminuted fracture of shaft of left tibia, subsequent encounter for closed fracture with delayed healing documented in this encounter [facility] [employer] Work Phone: Evaluation note* Diagnosis Neuropathic pain- Primary Neuralgia, neuritis, and radiculitis, unspecified (BWC) Displaced comminuted fracture of shaft of left tibia, subsequent encounter for closed fracture with delayed healing Pain syndrome, chronic Chronic pain syndrome Encounter for medication monitoring Encounter for therapeutic drug monitoring Pain in left jimenez Lumbar radiculopathy Thoracic or lumbosacral neuritis or radiculitis, unspecified [facility] - Reported* Type Description Date Medical History lower extremity frac tures bilaterally secondary to work related accident 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 Surgical History intramedullary nail fixation on right Surgical History ORIF left Hospitalization History bilateral lower extremity fractures secondary to work related accident 05/25/2021 [facility] Other Hospital Discharge instructions Additional Instructions Wear cock-up splint for the next 3 to 5 days Tylenol or Naprosyn if needed for pain [email or web address] for [facility] here [facility] any [facility] Work Phone: Progress note No data available for this section [facility] Purpose Family History No Family History Records Found Relationship Condition Age at Onset Recorded Date/T jose Not Specified Hypertension Unknown Advance Directives No Advanced Directives Records FoundLatest Code Status on File Code Status Date Activated Date Inactivated Comments Full Code 05/19/2021 8:19 PM 05/25/2021 7:19 PM Documentation of decision pr ocess for this code status: Patient and surrogate unable or unavailable to discuss. Defaulting to the previously documented code status. Latest Code Status on File Code Status Date Activated Date Inactivated Comments Full Code 05/19/2021 8:19 PM 05/25/2021 7:19 PM Latest Code Status on File Code Status Date Activated Date Inactivated Comments Full Code 05/19/2021 8:19 PM 05/25/2021 7:19 PM Question Answer Comments Documentation of decision process for this code status: Patient and surrogate unable or unavailable to discuss. Defaulting to the previously documented code status. Advance Directive Response Recorded Date/ Time Advance Directives No May 25 2:35pm Latest Code Status on File Code Status Date Activated Date Inactivated Comments Full Code 05/19/2021 8:19 PM 05/25/2021 7:19 PM Question Answer Comments Documentation of decision process for this code status: Patient and surrogate unable or unavailable to discuss. Defaulting to the previously documented code status. Latest Code Status on File Code Status Date Activated Date Inactivated Comments Full Code 05/19/2021 8:19 PM 05/25/2021 7:19 PM Question Answer Comments Documentation of decision process for this code status: Patient and surrogate unable or unavailable to discuss. Defaulting to the previously documented code status. Date Activated Date Inactivated Comments 05/19/2021 8:19 PM 05/25/2021 7:19 PM Question Answer Comments Documentation of decision pr ocess for this code status: Patient and surrogate unable or unavailable to discuss. Defaulting to the previously documented code status. Date Activated Date Inactivated Comments 05/19/2021 8:19 PM 05/25/2021 7:19 PM Question Answer Comments Documentation of decision pr ocess for this code status: Patient and surrogate unable or unavailable to discuss. Defaulting to the previously documented code status. Reason for Referral Specialty Diagnoses / Procedures Referred By Contac t Referred To Contact Radiology Diagnoses Closed displaced comminuted fracture of shaft of left tibia, initial encounter Procedures XR TIBIA LEFT 2 VIEWS Turner Swenson DO [address] [place] [address] [place] [address] [facility] [address] [place] [address] [place] [address] Referral ID Status Reason Start Date Expiration Date Visits Re quested Visits Authorized [id number] Closed 04/05/2022 04/05/2023 1 1 Specialty Diagnoses / Procedures Referred By Contac t Referred To Contact Radiology Diagnoses Closed displaced spiral fracture of shaft of right femur with routine healing, subsequent encounter Procedures XR RT FEMUR MIN 2 VIEWS Turner Swenson DO [address] [place] [address] [place] [address] [facility] [address] [place] [address] [place] [address] Referral ID Status Reason Start Date Expiration Date Visits Re quested Visits Authorized [id number] Closed 04/05/2022 04/05/2023 1 1 Specialty Diagnoses / Procedures Referred By Contac t Referred To Contact Diagnoses Paresthesia of left lower extremity Alison Hogan MD [address] [place] [address] Mauricio Cowan MD [address] [place] [address] [place] [address] Referral ID Status Reason Start Date Expiration Date V isits Requested Visits Authorized [id number] Authorized 08/16/2022 08/16/2023 3 3 Comments Left 1st webspace parasthesias s/p tibial shaft fracture 1 year ago, likely DPN irritation Specialty Diagnoses / Procedures Referred By Contac t Referred To Contact Physical Therapy Diagnoses Critical polytrauma Alison Hogan MD [address] [place], [place] [id number] Physical Therapy [address] [place], [place] [address] Referral ID Status Reason Start Date Expiration Date Visits Requested Visits Authorized [id number] Pending Review [facility] 08/16/2022 08/16/2023 10 10 Scheduling Instructions SCHEDULING INSTRUCTIONS: Call [phone] to schedule your Physical Therapy appointment. We offer therapy services at many convenient locations. Please arrive 20 minutes prior to your appointment to register. It is important to bring your insurance cards and a personal identification card to your appointment. If you are unable to keep your appointment, cancel or reschedule by calling [phone] or via [employer]. Thank you! Question Answer Is this for a new patient or continuation of treatment? Continuation What is the main reason for visit? Non-Urgent/Chronic Is the reason for this visit Workers' Comp related? No What is the reason for visit? Musculokeletal/Pain Reason for Ortho Visit Post Op Precautions? WBAT, s/p right femur and left tibia IM nailing Specialty Diagnoses / Procedures Referred By Contac t Referred To Contact Radiology Diagnoses Closed trimalleolar fracture of ankle with high fibular fracture Procedures XR TIBIA LEFT 2 VIEWS Chinyere Curry PA-C [address] [place] [address] [facility] [address] [place] [address] [place] [address] Referral ID Status Reason Start Date Expiration Date V isits Requested Visits Authorized [id number] Authorized 04/26/2023 04/25/2024 1 1 Specialty Diagnoses / Procedures Referred By Contac t Referred To Contact Radiology Diagnoses Closed displaced spiral fracture of shaft of right femur with routine healing, subsequent encounter Procedures XR FEMUR RIGHT MINIMUM 2 VIEWS Chinyere Curry PA-C [address] [place], [place] [id number] [facility] [address] [place] [address] [place] [address] Referral ID Status Reason Start Date Expiration Date V isits Requested Visits Authorized [id number] Authorized 04/26/2023 04/25/2024 1 1 Specialty Diagnoses / Procedures Referred By Contac t Referred To Contact Physical Therapy Diagnoses Closed trimalleolar fracture of ankle with high fibular fracture Nerve pain Chinyere Curry PA-C [address] [place] [address] Referral ID Status Reason Start Date Expiration Date V isits Requested Visits Authorized [id number] Authorized 04/27/2023 04/27/2024 10 10 Comments Strength and conditioning of left knee; quadriceps strengthing Specialty Diagnoses / Procedures Referred By Contac t Referred To Contact Neurology Diagnoses Closed trimalleolar fracture of ankle with high fibular fracture Nerve pain Procedures EMG Chinyere Curry PA-C [address] [place] [address] Referral ID Status Reason Start Date Expiration Date V isits Requested Visits Authorized [id number] Pending Review 04/27/2023 04/27/2024 3 3 Specialty Diagnoses / Procedures Referred By Contac t Referred To Contact Physical Therapy Diagnoses Closed trimalleolar fracture of ankle with high fibular fracture Nerve pain Chinyere Curry PA-C [address] [place] [address] Physical Therapy [address] [place], [place] [address] Referral ID Status Reason Start Date Expiration Date Visits Requested Visits Authorized [id number] Pending Review [facility] 04/27/2023 04/27/2024 10 10 Question Answer Is this for a new patient or continuation of treatment? (New = hasn't been seen for referring dx/problem for outpatient therapy in the last 3 mo.) New Patient What is the main reason for visit? Non-Urgent/Chronic Is the reason for this visit Workers' Comp related? No What is the reason for visit? Musculoskeletal/Pain Reason for Ortho Visit Musculoskeletal-General Precautions? n/a Comments Left knee pain; strength and conditioning of quadriceps muscles Referral ID Status Reason Start Date Expiration Date Visits Re quested Visits Authorized [id number] Closed 04/26/2023 04/25/2024 1 1 Referral ID Status Reason Start Date Expiration Date Visits Re quested Visits Authorized [id number] Closed 04/26/2023 04/25/2024 1 1 Specialty Diagnoses / Procedures Referred By Contac t Referred To Contact Radiology Diagnoses Pain in left jimenez Procedures XR TIBIA LEFT 2 VIEWS Sofya Dsouza, CANDELARIO-ELISSA [address] [place] [address] [facility] [address] [place] [address] Dr [place] [id number] Referral ID Status Reason Start Date Expiration Date Visits Re quested Visits Authorized [id number] Closed 07/12/2024 07/12/2025 1 1 Chief Complaint and Reason for Visit Chief Complaint K R20.2 [id number] Chief Complaint rt wrist injury Chief Complaint * New Patient - [facility] * left ankle and tibia pain, history of fracture and surgery, x-rays today Additional Source Comments (unrecognized sect ion and content) No Status Records FoundNo Status Records FoundNo Status Records FoundNo Status Records FoundNo Status Records FoundNo Status Records FoundNo Status Records Found INFORMATION SOURCE (unrecogn ized section and content) DATE CREATED AUTHOR 03/31/2022 [facility] DATE CREATED AUTHOR AUTHOR'S ORGANIZ ATION 05/11/2023 [facility] DATE CREATED AUTHOR AUTHOR'S ORGANIZ ATION 05/30/2023 [facility] DATE CREATED AUTHOR AUTHOR'S ORGANIZ ATION 06/29/2023 [facility] DATE CREATED AUTHOR AUTHOR'S ORGANIZ ATION 07/11/2024 [facility] EPIC DATE CREATED AUTHOR AUTHOR'S ORGANIZ ATION 11/16/2024 [facility] DATE CREATED AUTHOR AUTHOR'S ORGANIZ ATION 12/07/2024 [facility] Care Teams (unrecognized sec tion and content) Fur Glazer Relationship Specialty Start Date End Date Turner Swenson DO [address] [facility] [place] [address] Physician Orthopaedic Trauma 07/31/21 Fur Glazer Relationship Specialty Start Date End Date Turner Swenson DO [address] [facility] [place] [address] Physician Orthopaedic Trauma 07/31/21 Fur Glazer Relationship Specialty Start Date End Date Turner Swenson DO [address] [facility] [place] [place] [address] Physician Orthopaedic Trauma 07/31/21 Fur Glazer Relationship Specialty Start Date End Date Turner Swenson DO [address] [place] [address] [place] [address] Physician Orthopaedic Trauma 07/31/21 Fur Glazer Relationship Specialty Start Date End Date Turner Swenson DO [address] [facility] [place] [address] Physician Orthopaedic Trauma 07/31/21 Fur Glazer Relationship Specialty Start Date End Date Turner Swenson DO [address] [place] [address] [place] [address] Physician Orthopaedic Trauma 07/31/21 Fur Glazer Relationship Specialty Start Date End Date Turner Swenson DO [address] [place] [address] [place] [address] Physician Orthopaedic Trauma 07/31/21 Fur Glazer Relationship Specialty Start Date End Date Turner Swenson DO [address] [place] [address] [place] [address] Physician Orthopaedic Trauma 07/31/21 Mauricio Cowan MD [address] [place], [place] [address] [place] [address] Physician Anesthesiology 10/30/22 Fur Glazer Relationship Specialty Start Date End Date Turner Swenson DO [address] [place] [address] [place] [address] Physician Orthopaedic Trauma 07/31/21 Mauricio Cowan MD [address] [place], [place] [address] [place] [place] [address] Physician Anesthesiology 10/30/22 Team Status: Active Member Role Status Dates Jovita Martinez MD Primary Care Provider Active Team Status: Inactive Member Role Status Dates Jovita Martinez MD Primary Care Provider Active Turner Swenson DO Attending Provider Active Fur Glazer Relationship Specialty Start Date End Date Turner Swenson DO [address] [facility] [place] [address] Physician Orthopaedic Trauma 07/31/21 Mauricio Cowan MD [address] [facility] [place] [address] Physician Anesthesiology 10/30/22 Fur Glazer Relationship Specialty Start Date End Date Turner Swenson DO [address] [facility] [place] [address] Physician Orthopaedic Trauma 07/31/21 Mauricio Cowan MD [address] [facility] [place] [address] Physician Anesthesiology 10/30/22 Fur Glazer Relationship Specialty Start Date End Date Turner Swenson DO [address] [facility] [place] [address] Physician Orthopaedic Trauma 07/31/21 Mauricio Cowan MD [address] [facility] [place] [address] Physician Anesthesiology 10/30/22 Fur Glazer Relationship Specialty Start Date End Date Turner Swenson DO [address] [facility] [place] [address] Physician Orthopaedic Trauma 07/31/21 Mauricio Cowan MD [address] [facility] [place] [address] Physician Anesthesiology 10/30/22 Fur Glazer Relationship Specialty Start Date End Date Turner Swenson DO [address] [facility] [place] [address] Physician Orthopaedic Trauma 07/31/21 Mauricio Cowan MD [address] [place] [address] [place] [address] Physician Anesthesiology 10/30/22 Fur Glazer Relationship Specialty Start Date End Date Turner Swenson DO [address] [place] [address] [place] [address] Physician Orthopaedic Trauma 07/31/21 Mauricio Cowan MD [address] [place] [address] [place] [address] Physician Anesthesiology 10/30/22 Team Status: Inactive Member Role Status Dates Jovita Martinez MD Primary Care Provider Active Dulce Fierro APRN Emergency Provider Active Fur Glazer Relationship Specialty Start Date End Date Turner Swenson DO [address] [facility] [place] [address] Physician Orthopaedic Trauma 07/31/21 Mauricio Cowan MD [address] [facility] [place] [address] Physician Anesthesiology 10/30/22 Fur Glazer Relationship Specialty Start Date End Date Turner Swenson DO [address] [facility] [place] [address] Physician Orthopaedic Trauma 07/31/21 Mauricio Cowan MD [address] [place] [address] [place] [address] Physician Anesthesiology 10/30/22 Sofya Dsouza APRN-AQUATICS ASSISTANT DEPARTMENT HEAD [address] [place] [address] [employer] Physical Medicine & Rehab/PM&R 09/03/23 Fur Glazer Relationship Specialty Start Date End Date Turner Swenson DO [address] [place] [address] [place] [address] Physician Orthopaedic Trauma 07/31/21 Mauricio Cowan MD [address] [place] [address] [place] [address] Physician Anesthesiology 10/30/22 Sofya Dsouza APRN-AQUATICS ASSISTANT DEPARTMENT HEAD [address] [place] [address] [employer] SUPERVISOR Physical Medicine & Rehab/PM&R 09/03/23 Fur Glazer Relationship Specialty Start Date End Date Turner Swenson DO [address] [place] [address] [place] [address] Physician Orthopaedic Trauma 07/31/21 Mauricio Cowan MD [address] [place] [address] [place] [address] Physician Anesthesiology 10/30/22 Sofya Dsouza APRN-CNP [address] [place] [address] [employer] SUPERVISOR Physical Medicine & Rehab/PM&R 09/03/23 Fur Glazer Relationship Specialty Start Date End Date Turner Swenson DO [address] [place] [address] [place] [address] Physician Orthopaedic Trauma 07/31/21 Mauricio Cowan MD [address] [place] [address] [place] [address] Physician Anesthesiology 10/30/22 Sofya Dsouza, CANDELARIO-AQUATICS ASSISTANT DEPARTMENT HEAD [address] [place] [address] [employer] SUPERVISOR Physical Medicine & Rehab/PM&R 09/03/23 Reason for Visit (unrecogniz ed section and content) Reason Comments Monitoring/follow-up Ankle foot pain Specialty Diagnoses / Procedures Referred By Contac t Referred To Contact Diagnoses Paresthesia of left lower extremity Alison Hogan MD [address] [place] [address] Mauricio Cowan MD [address] [place] [address] [place] [address] Referral ID Status Reason Start Date Expiration Date V isits Requested Visits Authorized [id number] Authorized 08/16/2022 08/16/2023 3 3 Reason Comments Evaluation Follow up Left Tibia and Right Femur Specialty Diagnoses / Procedures Referred By Contac t Referred To Contact Radiology Diagnoses Closed displaced comminuted fracture of shaft of left tibia, initial encounter Procedures XR TIBIA LEFT 2 VIEWS Turner Swenson DO [address] [place] [address] [place] [address] [facility] [address] [place] [address] [place] [address] Referral ID Status Reason Start Date Expiration Date Visits Re quested Visits Authorized [id number] Closed 04/05/2022 04/05/2023 1 1 Reason Comments Monitoring/follow-up Cramping in left to es, swelling. Reason Comments New patient, to establish relationship Reason Comments Ankle symptoms/complaints Lt ankle/foot Specialty Diagnoses / Procedures Referred By Contac t Referred To Contact Radiology Diagnoses Closed displaced spiral fracture of shaft of right femur with routine healing, subsequent encounter Procedures XR FEMUR RIGHT MINIMUM 2 VIEWS Chinyere Curry PA-C [address] [place] [address] [facility] [address] [place] [address] [place] [address] Referral ID Status Reason Start Date Expiration Date Visits Re quested Visits Authorized [id number] Closed 04/26/2023 04/25/2024 1 1 Reason Comments Pain generalized Medication Management Leg/thigh symptoms Reason Comments Leg/thigh symptoms Specialty Diagnoses / Procedures Referred By Contac t Referred To Contact Radiology Diagnoses Pain in left jimenez Procedures XR TIBIA LEFT 2 VIEWS Sofya Dsouza APRN-CNP [address] [place] [address] [facility] [address] [place] [address] [place] [address] Referral ID Status Reason Start Date Expiration Date Visits Re quested Visits Authorized [id number] Closed 07/12/2024 07/12/2025 1 1 Reason Comments Medication Management Ankle symptoms/complaints Leg/thigh symptoms Reason Comments Medication Management Goals (unrecognized section and content) Goals may be documented in a n alternate section FOR RECORDS PERTAINING TO PATIENTS WHO ARE OR HAVE BEEN ENROLLED IN A CHEMICAL DEPENDENCY/SUBSTANCEABUSE PROGRAM, SOME INFORMATION MAY BE OMITTED. This clinical summary was aggregated from multiple sources. Caution should be exercised in using it in the provision of clinical care. This summary normalizes information from multiple sources, and as a consequence, information in this document may materially change the coding, format and clinical context of patient data. In addition, data may be omitted in some cases. CLINICAL DECISIONS SHOULD BE BASED ON THE PRIMARY CLINICAL RECORDS. [employer] provides no warranty or guarantee of the accuracy or completeness of information in this document.
== END 2024-12-07 12:37 | disposition home or self-care (01) ==
LOC: PST 12:36
PROVIDERS: PCP Family Medicine; Visit Provider Surgery
DX: Z01.818 Encounter for other preprocedural examination (principal); K21.9 Gastro-esophageal reflux disease without esophagitis; K30 Functional dyspepsia

== ENCOUNTER 2024-12-19 07:21 | Day surgery (SDC) | payer BC, SELFPAY ==
--- NOTE | 2024-12-19 | OP_ITS ---
OPERATION DATE: 12/19/2024 PREOPERATIVE DIAGNOSIS: Refractory gastroesophageal reflux disease. POSTOPERATIVE DIAGNOSIS: Small, sliding type hiatal hernia. PROCEDURE: EGD. SURGEON: Eleazar [place] M.D. ANESTHESIA: Monitored anesthesia care. ESTIMATED BLOOD LOSS: Zero. INDICATIONS AND CONSENT: Patient is a 44-year-old male with history of intermittent breakthrough gastroesophageal reflux disease, despite PPIs. Indications, risks, benefits, alternatives of proceeding with EGD were explained extensively to the patient, including the risks of bleeding, aspiration, esophageal/gastric/duodenal perforation or anesthetic complications. All of his questions were answered. Informed consent was obtained. PROCEDURE: Patient brought to the operating room, placed in the left lateral decubitus position. Monitored anesthesia care was provided. Bite block was placed in the patient?s mouth. Scope was inserted into the oropharynx. Under direct visualization, it was advanced into the esophagus, past the cricopharyngeus, down to the stomach. The stomach was insufflated with air. The pylorus was traversed down to the descending portion of the duodenum. There was no evidence of duodenitis or ulceration. There was no scarring within the pyloric channel. Scope was pulled back into the stomach and retroflexed. There was noted to be a small, sliding type hiatal hernia. No other gastric mucosal abnormalities. The GE junction was noted at approximately 37 cm. There was no distal esophagitis or Durant?s changes. The remainder of the esophagus was unremarkable. The scope was then withdrawn. Patient tolerated procedure well, was sent to recovery room in good condition. CC: Farooq Martinez M.D. [facility]
--- OUTSIDE RECORDS SUMMARY | 2024-12-19 07:23 | XMS_ITS | CCD ---
Author Organization [facility] CliniSytn Care Team Providers Care Block Trimmer Name Role Phone DR JOVITA MARTINEZ Admitting Unavailable MANDEEP, DR HUSSEIN Attending Unavailable MANDEEP, DR HUSSEIN Primary Care Unavailable MANDEEP, DR HUSSEIN Admitting Unavailable MANDEEP, DR HUSSEIN Attending Unavailable MANDEEP, DR HUSSEIN Primary Care Unavailable HOY, DR HUSSEIN Admitting Unavailable MANDEEP, DR HUSSEIN Attending Unavailable RADHAY, DR HUSSEIN Consulting Unavailable MANDEEP, DR HUSSEIN Primary Care Unavailable Turner Swenson DO Unavailable Margaux Vincent Unavailable Remberto Chapa Unavailable Turner Swenson DO Unavailable Chapo RODRIGUEZ, Mauricio Unavailable [phone] Turner Swenson DO Unavailable [phone] Mauricio Cowan MD Unavailable Jovita Martinez Primary Care Physician [phone] Kaykay Jimenez Unavailable MD Jovita Martinez Primary Care Provider [phone] DO Turner Swenson Attending Provider Jovita Martinez Unavailable Dr. Obey Gauthier III Attending Un available Dr. Jovita Martinez Primary Care Unavail able Dulce Fierro Admitting Unavailable Jovita Martinez Primary Care Unavailable Dulce Fierro Attending Unavailable Turner Swenson Attending Unavaila Turner Schafer Admitting Unavaila Jovita Walton Primary Care Unavailable Hoy, MD Jovita M Primary Care Provider CANDELARIO Fierro Emergency Provider Tawanda PALOMINO-Sofya BOWERS Unavailable [phone] Turner Swenson DO Unavailable [phone] Unavailable Primary Care Provider Unavailabl e [...] Every 4 hours 40 June 04, 2021 pantoprazole 40 mg delayed release oral tablet (1 source) Proton Pump Inhibitor Start: 11-19-2024 take 1 tablet by mouth once daily Protonix 40 mg Tab-DR 40 mg = 1 tab(s), Oral, Daily, Refills(s) 0 Start Date: 11/19/24 Status: Ordered polysaccharide iron complex 150 mg oral capsule (9 sources) Start: 06-04-2021 End: 10-13-2022 Polysaccharide Iron Complex (Ferrex 150) 150 mg iron Capsule Active 150 MG PO Every morning June 04, 2021 12:00am pregabalin 150 mg oral capsule (20 sources) Start: 11-19-2024 take 1 capsule by mouth once daily pregabalin 150 mg Cap 150 mg = 1 cap(s), Oral, Daily, Refills(s) 0 Start Date: 11/19/24 Status: Ordered Start: 09-07-2024 End: 03-07-2025 take 1 capsule [...] tablet (1 source) Opioid Agonist Start: 10-26-2013 [place] 325 mg-5 mg oral tablet 1 tab(s), [...] 8.6 mg Tablet Active 2 TAB PO DAILY@June 04, 2021 10:51am 0 06/04/2021 10/13/2022 Discontinued Start: 06-04-2021 SENNA CO Senno sides (Senna Lax) 8.6 mg Tablet Active 2 TAB PO DAILY@June 04, 2021 10:51am 0 06/04/2021 Active Problems Active Problems Problem Classification Problem Date Documented Da te Episodic/Chronic Abdominal pain (2 sources) Epigastric pain; Translations: [Epigastric pain] Onset: 5 Episodic Administrative/social admission (2 sources) Other reduced mobility; Translations: [Impaired mobility and activities of daily living] 05-26-2021 Episodic Deficiency and other anemia (2 sources) Anemia; Translations: [Anemia, unspecified] 05-26-2021 Episodic Esophageal disorders (3 sources) Gastroesophageal reflux disease without esophagitis; Translations: [Gastro-esophageal reflux disease without esophagitis] Onset: 5 Chronic Inflammatory conditions of male genital organs (1 source) Chronic prostatitis 11-19-2024 Chronic Other bone disease and musculoskeletal deformities (1 source) Bone pain; Translations: [Disorder of bone and cartilage, unspecified] Episodic Other connective tissue disease (20 sources) Neuropathic pain; Translations: [Neuralgia and neuritis, unspecified] Onset: 2 Episodic Other connective tissue disease (2 sources) Spasm; Translations: [Other muscle spasm] 05-29-2021 Episodic Other connective tissue disease (1 source) Neuralgia; Translations: [Neuralgia and neuritis, unspecified] 04-27-2023 Episodic Other connective tissue disease (2 sources) Pain in left lower limb; Translations: [Pain in left lower leg] 07-16-2024 Episodic Other gastrointestinal disorders (1 source) Chronic constipation 11-19-2024 Episodic Other injuries and conditions due to external causes (1 source) Multiple injuries; Translations: [Unspecified multiple injuries, initial encounter] Episodic Other nervous system disorders (20 sources) Chronic pain syndrome; Translations: [Chronic pain syndrome] Onset: 2 Chronic Other nervous system disorders (3 sources) Chronic pain syndrome Onset: 2 10-13-2022 Chronic Other nervous system disorders (1 source) Chronic pain syndrome; Translations: [Chronic pain syndrome] Onset: 2 Chronic Other nervous system disorders (1 source) [...] blood chemistry] 05-26-2021 Episodic Other upper respiratory disease (1 source) Seasonal allergic rhinitis 11-19-2024 Chronic Other upper respiratory infections (3 sources) Acute upper respiratory infection; Translations: [Acute upper respiratory infection, unspecified] Onset: 3 Episodic Residual codes; unclassified (4 sources) Obstructive sleep apnea (adult) (pediatric); Translations: [OBSTRUCTIVE SLEEP APNEA] Onset: 2 Chronic Residual codes; unclassified (1 source) Obstructive sleep apnea syndrome 11-19-2024 Chronic Residual codes; unclassified (2 sources) Body [...] wrist; Translations: [Pain in right wrist] Onset: Past or Other Problems Problem Classification Problem [...] Your Care Team Attending Physician - Eleazar MISM MD Primary Care Physician - Jovita Martinez [...] you for choosing us for your care. [facility] Progress Noteson 11-13-2024 It Application Administrator Authentication Interface Message Text PAIN MANAGEMENT FOLLOW-UP [...] symptoms (No CP/Pressure/Tightness, palpitations, orthopnea, PND, SOB, KEARENY, edema, MELENDEZ or vision change) Gastrointestinal: negative [...] saphenus blocks if pain worsen F/U with MEDIA MARKETING SPECIALIST in 3 M The impression and plan [...] Ankle pain, right. COMPARISON: None. ACCESSION NUMBER(S): [id number] ORDERING CLINICIAN: OBEY GAUTHIER FINDINGS: Multiple views [...] o (more content not included)... Normal [facility] TOX ANALYSIS W/CONFIMATION,U Bryce 11-13-2024 Amphetamines [...] and its performance characteristics determined by [facility] in a manner consistent with CLIA requirements. This test has not been cleared or approved by the U.S. Food and Drug Administration; however, the FDA has determined that such clearance or approval is not necessary. [facility] ALCOH[facility] - TOX W/ CONF Negative Normal Cutoff: 10 [facility] Comment on above: Order Comment: Scree n results are reported as positive (at or above the cutoff) or negative (below the cutoff). The LC-MS/MS testing (if applicable) was developed and its performance characteristics determined by [facility] in a manner consistent with CLIA requirements. This test has not been cleared or approved by the U.S. Food and Drug Administration; however, the FDA has determined that such clearance or approval is not necessary. Performed By: #### T OX U #### [facility] [address] [place] [address], AMPH CL Negative Normal Cutoff: 1000 [facility] Comment on above: Order Comment: Scree n results are reported as positive (at or above the cutoff) or negative (below the cutoff). The LC-MS/MS testing (if applicable) was developed and its performance characteristics determined by [facility] in a manner consistent with CLIA requirements. This test has not been cleared or approved by the U.S. Food and Drug Administration; however, the FDA has determined that such clearance or approval is not necessary. Performed By: #### T OX U #### [facility] [address] [place] [address], NHAN CL Negative Normal Cutoff: 200 [facility] Comment on above: Order Comment: Scree n results are reported as positive (at or above the cutoff) or negative (below the cutoff). The LC-MS/MS testing (if applicable) was developed and its performance characteristics determined by [facility] in a manner consistent with CLIA requirements. This test has not been cleared or approved by the U.S. Food and Drug Administration; however, the FDA has determined that such clearance or approval is not necessary. Performed By: #### T OX U #### [facility] [address] [place] [address], BENZO CL Negative Normal Cutoff: 200 [facility] Comment on above: Order Comment: Scree n results are reported as positive (at or above the cutoff) or negative (below the cutoff). The LC-MS/MS testing (if applicable) was developed and its performance characteristics determined by [facility] in a manner consistent with CLIA requirements. This test has not been cleared or approved by the U.S. Food and Drug Administration; however, the FDA has determined that such clearance or approval is not necessary. Performed By: #### T OX U #### [facility] [address] [place] [address], COCAINE CL- TOX W/ CONF Negative Normal Cutoff: 300 [facility] Comment on above: Order Comment: Scree n results are reported as positive (at or above the cutoff) or negative (below the cutoff). The LC-MS/MS testing (if applicable) was developed and its performance characteristics determined by [facility] in a manner consistent with CLIA requirements. This test has not been cleared or approved by the U.S. Food and Drug Administration; however, the FDA has determined that such clearance or approval is not necessary. Performed By: #### T OX U #### [facility] [address] [place] [address], FENTANYL Negative Normal Cutoff: 1 [facility] Comment on above: Order Comment: Scree n results are reported as positive (at or above the cutoff) or negative (below the cutoff). The LC-MS/MS testing (if applicable) was developed and its performance characteristics determined by [facility] in a manner consistent with CLIA requirements. This test has not been cleared or approved by the U.S. Food and Drug Administration; however, the FDA has determined that such clearance or approval is not necessary. Performed By: #### T OX U #### [facility] [address] [place], [place], METH CL Negative Normal Cutoff: 300 [facility] Comment on above: Order Comment: Scree n results are reported as positive (at or above the cutoff) or negative (below the cutoff). The LC-MS/MS testing (if applicable) was developed and its performance characteristics determined by [facility] in a manner consistent with CLIA requirements. This test has not been cleared or approved by the U.S. Food and Drug Administration; however, the FDA has determined that such clearance or approval is not necessary. Performed By: #### T OX U #### [facility] [address] [place], [place], OPI CL Negative Normal Cutoff: 300 [facility] Comment on above: Order Comment: Scree n results are reported as positive (at or above the cutoff) or negative (below the cutoff). The LC-MS/MS testing (if applicable) was developed and its performance characteristics determined by [facility] in a manner consistent with CLIA requirements. This test has not been cleared or approved by the U.S. Food and Drug Administration; however, the FDA has determined that such clearance or approval is not necessary. Performed By: #### T OX U #### [facility] [address] [place], [place], OXYCODONE Negative Normal Cutoff: 100 [facility] Comment on above: Order Comment: Scree n results are reported as positive (at or above the cutoff) or negative (below the cutoff). The LC-MS/MS testing (if applicable) was developed and its performance characteristics determined by [facility] in a manner consistent with CLIA [...] T OX U #### [facility] [address] [place], [place], PCP CL Negative Normal Cutoff: 25 [facility] Comment on above: Order Comment: Scree n results are reported as positive (at or above the cutoff) or negative (below the cutoff). The LC-MS/MS testing (if applicable) was developed and its performance characteristics determined by [facility] in a manner consistent with CLIA requirements. This test has not been cleared or approved by the U.S. Food and Drug Administration; however, the FDA has determined that such clearance or approval is not necessary. Performed By: #### T OX U #### [facility] [address] [place], [place], THC CL - TOX W/ CONF Negative Normal Cutoff: 50 [facility] Comment on above: Order Comment: Scree n results are reported as positive (at or above the cutoff) or negative (below the cutoff). The LC-MS/MS testing (if applicable) was developed and its performance characteristics determined by [facility] in a manner consistent with CLIA requirements. This test has not been cleared or approved by the U.S. Food and Drug Administration; however, the FDA has determined that such clearance or approval is not necessary. Performed By: #### T OX U #### [facility] [address] [place], [place], Progress Noteson 08-12-2024 It Application Administrator Authentication Interface Message Text PAIN MANAGEMENT FOLLOW-UP [...] saphenus blocks if pain worsen F/U with MEDIA MARKETING SPECIALIST in 3 M The impression and plan [...] COMPARIS (more content not included)... Normal [facility] XR TIBIA LEFT 2 VIEWSon 06-28 XR TIBIA LEFT 2 VIEWS EXAMINATION: XR TI PRABHJOT LEFT 2 VIEWSPRO/LT/07/16/2024 01:45 PM CLINICAL HISTORY: [...] tibia and fibula MACRO: None Normal [facility] XR Tibia and Fibula - left V iewson 07-16-2024 EXAMINATION: XR TIBI A LEFT 2 VIEWSPRO/LT/FY 07/16/2024 01:45 PM CLINICAL HISTORY: pain ASSOCIATED DIAGNOSIS: [...] loosening. Left tibia and fibula MACRO: None RADIOLOGY Eleazar Dash, - 07/16/2024 EXAMINATION: XR TIBIA LEFT 2 VIEWSPRO/LT/FY 07/16/2024 01:45 PM CLINICAL HISTORY: pain ASSOCIATED DIAGNOSIS: [...] loosening. Left tibia and fibula MACRO: None [facility] Radiology Study observation (narrative) [facility] XR Tibia and Fibula - left V iewsOrdered By: Eleazar Dash on 07-16-2024 [facility] Work Phone: Progress Noteson 05-04-2024 It Application Administrator Authentication Interface Message Text Patient was identified by name and date of . DOYLE Sandoval Normal [facility] It Application Administrator Authentication Interface Message Text PAIN MANAGEMENT FOLLOW-UP [...] saphenus blocks if pain worsen F/U with MEDIA MARKETING SPECIALIST in 3 M The impression and plan [...] Ankle pain, right. COMPARISON: None. ACCESSION NUMBER(S): [id number] ORDERING CLINICIAN: OBEY GAUTHIER FINDINGS: Multiple views [...] in left tibia. COMPARISON: None. ACCESSION NUMBER(S): [id number] ORDERING CLINICIAN: OBEY GAUTHIER FINDINGS: Two views left tib fib: Healed mid shaft tibia fracture status post intramedullary nailing abundant bridging bone formation consistent with a healed tibial shaft fracture and fibula fracture. PRIOR MEDICAL HISTORY: No past medical history on file. PRIOR SURGICAL HISTORY: Past Surgical History: Procedure Laterality Date REDUCTION, OPEN, FEMUR, INTR (more content not included)... Normal [facility] Progress Noteson 02-03-2024 It Application Administrator Authentication Interface Message Text PAIN MANAGEMENT FOLLOW-UP [...] saphenus blocks if pain worsen F/U with MEDIA MARKETING SPECIALIST in 3 M The impression and plan [...] Ankle pain, right. COMPARISON: None. ACCESSION NUMBER(S): [id number] ORDERING CLINICIAN: OBEY GAUTHIER FINDINGS: Multiple views [...] in left tibia. COMPARISON: None. ACCESSION NUMBER(S): [id number] ORDERING CLINICIAN: OBEY GAUTHIER FINDINGS: Two views left tib fib: Healed mid shaft tibia fracture status post intramedullary nailing abundant bridging bone formation consistent with a healed tibial shaft fracture and fibula fracture. PRIOR MEDICAL HISTORY: No past medical history on file. PRIOR SURGICAL HISTORY: Past Surgical History: Procedure Laterality Date REDUCTION, OPEN, FEMUR, INT (more content not included)... Normal [facility] XR hand RT min 3V*on 023 XR hand RT min 3V* [place] [id number] XRay Report Signed Patient: Tom Rooney MR#: [id number] [birth year] : 1980 Acct:[id number] Age/Sex: 42 / M ADM Date: 06/27/23 Loc: ER Room: Type: [facility] ER Attending Dr: Copies to: Dulce [...] Gabriel Arvizu M.D.06/28/2023 8:18 AM Dictation Location: [place] [address] Transcribed By: [facility] 06/28/23817 Dictated By: Gabriel Arvizu DO 06/28/23816 Signed By: 06/28/23817 Normal [facility] XR wrist RT min 3V*on 2022 XR wrist RT min 3V* [address] [address] XRay Report Signed Patient: Tom Rooney MR#: [id number] [birth year] : 1980 Acct:[id number] Age/Sex: 42 / M ADM Date: 06/27/23 Loc: ER Room: Type: [facility] ER Attending Dr: Copies to: Dulce [...] Gabriel Arvizu M.D.06/28/2023 8:21 AM Dictation Location: [place] [address] Transcribed By: [facility] 06/28/23820 Dictated By: Gabriel Arvizu DO 06/28/23817 Signed By: 06/28/23 0821 [facility] ANKLE, COMPLETE, MIN 3 VIEWS on 05-02-2023 ANKLE, COMPLETE, MIN 3 VIEWS Patient Name: TOM ROONEY STUDY: ANKLE, COMPLETE, MIN 3 VIEWS; Left; 05/02/2023 4:13 pm INDICATION: pain M25.571: Ankle pain, right. COMPARISON: None. ACCESSION NUMBER(S): [id number] ORDERING CLINICIAN: OBEY GAUTHIER FINDINGS: Multiple views left ankle: Status post open reduction internal fixation: Healed ankle fracture in near anatomic alignment. Abundant bridging bone formation of tibial shaft fracture. IMPRESSION: Healed tibial shaft fracture, fibular shaft fracture ankle fracture Electronically signed by: OBEY GAUTHIER MD [facility]on 05-02-2023 Initial Visit (Orthopaedic Surgery) Diagnoses/Problems Assessed Ankle pain, left (719.47) (M25.572) Pain in left tibia (733.90) (M89.8X6) Orders Ankle pain, left Xray Ankle 3 View; Status:Complete; Done: 02May2023 04:13PM Laterality : Left Radiologist to Determine Optimal Study : Y What are the patient's signs and symptoms? : pain Pain in left tibia Xray Tibia + Fibula 2 View; Status:Complete; Done: [id number] 04:13PM Laterality : Left Radiologist to Determine Optimal Study : Y What are the patient's signs and symptoms? : pain Chief Complaint New Patient - [facility] left ankle and tibia pain, history of fracture and surgery, x-rays today History of Present Illness History of Present Illness 42-year-old male with history of tibial shaft fracture, fibula fracture as well as ankle fracture date of injury May 19, 2021 underwent intramedullary nailing and open reduction internal fixation right ankle by Dr. Swenson at [facility]. Patient presents today for a second [...] tibia (733.90) (M89.8X6) Results/Data Xray Ankle 3 [id number] 04:13PMObey Gauthier III Test NameResultFlagReference Xray Ankle 3 View(Report) FINAL REPORT Interpreted by: OBEY GAUTHIER EDWARD, MD 05/02/23 17:01 Patient Name: TOM ROONEY STUDY: ANKLE, COMPLETE, MIN 3 VIEWS; Left; 05/02/2023 4:13 pm INDICATION: pain M25.571: Ankle pain, right. COMPARISON: None. ACCESSION NUMBER(S): [id number] ORDERING CLINICIAN: OBEY GAUTHIER FINDINGS: Multiple views left ankle: Status post open reduction internal fixation: Healed ankle fracture in near anatomic alignment. Abundant bridging bone formation of tibial shaft fracture. IMPRESSION: Healed tibial shaft fracture, fibular shaft fracture ankle fracture Electronically signed by: OBEY GAUTHIER 05/02/23 17:01 Xray Tibia + Fibula 2 [id number] 04:13PMObey Gauthier III Test NameResultFlagReference Xray Tibia + Fibula 2 View(Report) FINAL REPORT Interpreted by: OBEY GAUTHIER EDWARD, MD 05/02/23 17:00 Patient Name: TOM ROONEY STUDY: TIBIA ; Left; 05/02/2023 4:13 pm INDICATION: pain M89.8X6: Pain in left tibia. COMPARISON: None. ACCESSION NUMBER(S): [id number] ORDERING CLINICIAN: OBEY GAUTHIER FINDINGS: Two views [...] Radiologyon 05-02-2023 XR Ankle 3 Views Normal [facility] Work Phone: XR Tibia and Fibula - left 2 Views Normal -[facility]oped[facility] Work Phone: TIBIAon 05-02-2023 TIBIA Patient Name: TOM ROONEY STUDY: TIBIA ; Left; 05/02/2023 4:13 pm INDICATION: pain M89.8X6: Pain in left tibia. COMPARISON: None. ACCESSION NUMBER(S): [id number] ORDERING CLINICIAN: OBEY GAUTHIER FINDINGS: Two views left tib fib: Healed mid shaft tibia fracture status post intramedullary nailing abundant bridging bone formation consistent with a healed tibial shaft fracture and fibula fracture. IMPRESSION: Healed mid shaft tibia and fibula fracture Electronically signed by: OBEY GAUTHIER MD Normal [facility] XR Femur - right 2 Viewson 0 [...] routine healing, subsequent encounter ORDERING PROVIDER: CHINYERE CURRY TECHNCARIE NOTE: COMPARISON: XR RT FEMUR MIN 2 [...] and essentially anatomic Right femur MACRO: None [facility] Radiology Study observation (narrative) [facility] XR Femur - right 2 ViewsOrde red By: Eleazar Osman on 04-27-2023 [facility] Work Phone: XR Tibia and Fibula [...] anatomic. Left tibia and fibula MACRO: None [facility] Radiology Study observation (narrative) [facility] CHEMISTRYOrdered By: SYSTEM SYSTEM on 02-12-2023 Anion gap [Moles/Vol] 13 mmol/L Normal 6 - 16 mEq/L [facility] Calcium [Mass/Vol] 8.9 mg/dL Normal 8.9 - 11. 1 mg/dL [facility] Chloride [Moles/Vol] 103 mmol/L Normal 101 - 1 11 mmol/L [facility] CO2 [Moles/Vol] 25 mmol/L Normal 21 - 31 mmol/L [facility] Creatinine [Mass/Vol] 1.0 mg/dL Normal 0.5 - 1.3 mg/dL [facility] GFR/1.73 sq M.predicted among blacks MDRD (S/P/Bld) [Vol rate/Area] mL/min/1.73 m2 Normal >=59mL/min /1.73 m2 [facility] Chem S GFR/1.73 sq M.predicted among non-blacks MDRD (S/P/Bld) [Vol rate/Area] mL/min/1.73 m2 Normal >=59mL/min /1.73 m2 [facility] Chem S Glucose [Mass/Vol] 96 mg/dL Normal 55 - 199 mg/dL [facility] Potassium [Moles/Vol] 3.6 mmol/L Normal 3.5 - 5.3 mmol/L [facility] Sodium [Moles/Vol] 137 mmol/L Normal 135 - 145 mmol/L [facility] Urea nitrogen [Mass/Vol] 14 mg/dL Normal 5 - 21 mg/dL [facility] Urea nitrogen/Creatinine [Mass ratio] 14 mg/mg Normal 10 - 20 [facility] HEMATOLOGYOrdered By: SYSTEM SYSTEM on 02-12-2023 Basophils/100 WBC (Bld) 0.9 % Normal 0.0 - 2.0 % [facility]eAutoSS Basophils/Leukocytes Auto (Bld) [Pure # fraction] 0.1 E9/L Normal 0.0 - 0.2 E9/L [facility] Eosinophils/100 WBC (Bld) 2.1 % Normal 0.0 - 8.0 % [facility] Eosinophils/Leukocytes Auto (Bld) [Pure # fraction] 0.2 E9/L Normal 0.0 - 0.5 E9/L [facility] Lymphocytes/100 WBC (Bld) 27.2 % Normal 14.0 - 50.0 % [facility]eAutoSS Lymphocytes/Leukocytes Auto (Bld) [Pure # fraction] [...] 5.2 E12/L Normal 4.3 - 5.9 E12/L [facility] WBC corrected for nucl RBC Auto (Bld) [#/Vol] 7.3 E9/L Normal 4.0 - 11.0 E9/L [facility] HemeAutoSS MICRO OTHER TESTSOrdered By: Florentino Hobbs [...] pyogenes Org specific cx Ql (Throat) Positive [employer] Other Quick Strep [employer] Other No Panel Informationon 04-05 EXAMINATION: XR [...] XR TIBIA LEFT 2 VIEWS MACRO: None [facility] EXAMINATION: XR RT F EMUR MIN 2 VIEWSPRO/RT CLINICAL HISTORY: Reason for Exam: fu ASSOCIATED DIAGNOSIS: Closed displaced spiral fracture of shaft of right femur with routine healing, subsequent encounter TECHNOLOGISTS NOTE: COMPARISON: 11/30/2021 FINDINGS: IMPRESSION: Fusion hardware is intact. No acute fracture or malalignment. No significant degenerative change. Unremarkable soft tissues. XR RT FEMUR MIN 2 VIEWS MACRO: None RADIOLOGY Gabriel Samaniego M D - 04/05/2022 EXAMINATION: XR RT FEMUR MIN 2 VIEWSPRO/RT CLINICAL HISTORY: Reason for Exam: fu ASSOCIATED DIAGNOSIS: Closed displaced spiral fracture of shaft of right femur with routine healing, subsequent encounter TECHNOLOGISTS NOTE: COMPARISON: 11/30/2021 FINDINGS: IMPRESSION: Fusion hardware is intact. No acute fracture or malalignment. No significant degenerative change. Unremarkable soft tissues. XR RT FEMUR MIN 2 VIEWS MACRO: None [facility] Radiology Study observation (narrative) [facility] Radiology Study observation (narrative) [facility] No Panel InformationOrdered By: Gabriel Samaniego on 04-05-2022 [facility] Work Phone: CBC AUTO DIFFon 02-20-2022 BASO # 0.1 103/ul Normal 0.0-0.1 [facility] Comment on above: Performed By: #### C BC #### [facility] [address] [place] [address] Dr. Aby Wiggins Basophils/100 WBC (Bld) 0.9 % Normal 0.2-2.0 [facility] Comment on above: Performed By: #### C BC #### [facility] [address] [place] [address] Dr. Aby Wiggins EO # 0.1 103/ul Normal 0.0-0.7 [facility] Comment on above: Performed By: #### C BC #### [facility] [address] [place] [address] Dr. Aby Wiggins Eosinophils/100 WBC (Bld) 1.4 % Normal 0.9-7.0 [facility] Comment on above: Performed By: #### C BC #### [facility] [address] [place] [address] Dr. Aby Wiggins Erythrocyte distribution width (RBC) [Ratio] 13.2 % Normal 11.0-15.0 [facility] Comment on above: Performed By: #### C BC #### [facility] [address] [place] [address] Dr. Aby Wiggins Hematocrit (Bld) [Volume fraction] 47.7 % Normal 42.0-54.0 [facility] Comment on above: Performed By: #### C BC #### [facility] [address] [place] [address] Dr. Aby Wiggins Hemoglobin (Bld) [Mass/Vol] 15.3 g/dL Normal 14.0-18.0 [facility] Comment on above: Performed By: #### C BC #### [facility] [address] [place] [address] Dr. Aby Wiggins IG # 0.02 10e3/ul Normal 0.00-0.03 [facility] Comment on above: Performed By: #### C BC #### [facility] [address] [place] [address] Dr. Aby Wiggins IG % 0.4 % Normal 0.0-0.5 [facility] Comment on above: Performed By: #### C BC #### [facility] [address] [place] [address] Dr. Aby Wiggins LYMPH # 1.5 103/ul Normal 1.2-3.8 [facility] Comment on above: Performed By: #### C BC #### [facility] [address] [place] [address] Dr. Aby Wiggins Lymphocytes/100 WBC (Bld) 27.3 % Normal 20.5-60.0 [facility] Comment on above: Performed By: #### C BC #### [facility] [address] [place] [address] Dr. Aby Wiggins MANUAL DIFF REQ NO Normal [facility] Comment on above: Performed By: #### C BC #### [facility] [address] [place] [address] Dr. Aby Wiggins MCH (RBC) [Entitic mass] 28.7 pg Normal 25.9-34.0 [facility] Comment on above: Performed By: #### C BC #### [facility] [address] [address] [address] Aby Wiggins MCHC (RBC) [Mass/Vol] 32.1 g/dL Normal 29.9-35.2 [facility] Comment on above: Performed By: #### C BC #### [facility] [address] [place] [address] Dr. Aby Wiggins MCV (RBC) [Entitic vol] 89.5 fL Normal 80.0-94.0 [facility] Comment on above: Performed By: #### C BC #### [facility] [address] [place] [address] Dr. Aby Wiggins MONO # 0.4 103/ul Normal 0.3-0.8 [facility] Comment on above: Performed By: #### C BC #### [facility] [address] [place] [address] Dr. Aby Wiggins Monocytes/100 WBC (Bld) 6.7 % Normal 1.7-12.0 [facility] Comment on above: Performed By: #### C BC #### [facility] [address] [place] [address] Dr. Aby Wiggins NEUT # 3.6 103/ul Normal 1.4-6.5 [facility] Comment on above: Performed By: #### C BC #### [facility] [address] [place] [address] Dr. Aby Wiggins Neutrophils/100 WBC (Bld) 63.3 % Normal 43.0-75.0 [facility] Comment on above: Performed By: #### C BC #### [facility] [address] [place] [address] Dr. Aby Wiggins Platelet mean volume (Bld) [Entitic vol] 11.2 fL Normal 9.5-13.5 [facility] Comment on above: Performed By: #### C BC #### [facility] [address] [place] [address] Dr. Aby Wiggins PLT 200 103/ul Normal 150-450 [facility] Comment on above: Performed By: #### C BC #### [facility] [address] [address] [address] Aby Wiggins RBC 5.33 106/ul Normal 4.70-6.10 [facility] Comment on above: Performed By: #### C BC #### [facility] [address] [address] [address] Aby Wiggins WBC 5.6 103/ul Normal 4.0-11.0 [facility] Comment on above: Performed By: #### C BC #### [facility] [address] [address] [address] Aby Wiggins FREE THYROXINE INDEX T7on FTI 1.91 Normal [facility] Comment on above: Performed By: #### C MP, T7, TSH, LIPID #### [facility] [address] [place] [address] Dr. Aby Wiggins T3U 33.0 % Normal 23.5-40.5 [facility] Comment on above: Performed By: #### C MP, T7, TSH, LIPID #### [facility] [address] [address] [address] Aby Wiggins T4 [Mass/Vol] 5.80 ug/dL Normal 5.53-11.00 [facility] Comment on above: Performed By: #### C MP, T7, TSH, LIPID #### [facility] [address] [place] [address] Dr. Aby Wiggins GLYCOHEMOGLOBIN A1Con 2021 ADA RECOMMENDATION ADA THERAPEUTIC TARG ET 6.0 - 7.0 ACTION SUGGESTED > 7.0 Normal [facility] Comment on above: Performed By: #### A 1C #### [facility] [address] [place] [address] Dr. Aby Wiggins Glucose [Mass/Vol] 108 mg/dL Normal [facility] Comment on above: Performed By: #### A 1C #### [facility] [address] [place] [address] Dr. Aby Wiggins HbA1c (Bld) [Mass fraction] 5.4 % Normal <=6.0 [facility] Comment on above: Performed By: #### A 1C #### [facility] [address] [address] [address] Aby Wiggins LIPID PROFILEon 02-20-2022 CHOL-HDL RATIO NORM SEE BELOW Normal [facility] Comment on above: Result Comment: 3.3 - 4.4 LOW RISK 4.4 - 7.1 AVERAGE RISK 7.1 - 11.0 MODERATE RISK >11.0 HIGH RISK Performed By: #### C MP, T7, TSH, LIPID #### [facility] [address] [address] [address] Aby Wiggins Cholesterol [Mass/Vol] 177 mg/dL Normal <=200 [facility] Comment on above: Performed By: #### C MP, T7, TSH, LIPID #### [facility] [address] [address] [address] Aby Wiggins Cholesterol in HDL [Mass/Vol] 50 mg/dL Normal 40-60 [facility] Comment on above: Performed By: #### C MP, T7, TSH, LIPID #### [facility] [address] [address] [address] Aby Wiggins Cholesterol in LDL [Mass/Vol] 114.2 mg/dL Normal [facility] Comment on above: Performed By: #### C MP, T7, TSH, LIPID #### [facility] [address] [address] [address] Aby Wiggins Cholesterol.total/Chol esterol in HDL [Mass ratio] 3.5 {ratio} Normal [facility] Comment on above: Performed By: #### C MP, T7, TSH, LIPID #### [facility] [address] [address] [address] Aby Wiggins HDL NORMAL > or = 60 mg/dl - LO W CARDIOVASCULAR RISK <40 mg/dl - HIGH CARDIOVASCULAR RISK Normal [facility] Comment on above: Performed By: #### C MP, T7, TSH, LIPID #### [facility] [address] [address] [address] Aby Wiggins LDL CALC NORMAL SEE BELOW Normal [facility] Comment on above: Result Comment: <100 mg/dl OPTIMAL 100 - 129 mg/dl NEAR OR ABOVE OPTIMAL 130 - 159 mg/dl BORDERLINE HIGH 160 - 189 mg/dl HIGH >190 mg/dl VERY HIGH Performed By: #### C MP, T7, TSH, LIPID #### [facility] [address] [address] [address] Aby Wiggins Triglyceride [Mass/Vol] 64 mg/dL Normal <=150 [facility] Comment on above: Performed By: #### C MP, T7, TSH, LIPID #### [facility] [address] [address] [address] Aby Wiggins VLDL CALC 12.8 mg/dL Normal [facility] Comment on above: Performed By: #### C MP, T7, TSH, LIPID #### [facility] [address] [place] [address] Dr. Aby Wiggins PROF 14(COMP METB)on 022 Albumin [Mass/Vol] 4.1 g/dL Normal 3.4-5.0 [facility] Comment on above: Performed By: #### C MP, T7, TSH, LIPID #### [facility] [address] [place] [address] Dr. Aby Wiggins Albumin/Globulin [Mass ratio] 1.1 {ratio} Normal [facility] Comment on above: Performed By: #### C MP, T7, TSH, LIPID #### [facility] [address] [place] [address] Dr. Aby Wiggins ALP [Catalytic activity/Vol] 75 U/L Normal 46-116 [facility] Comment on above: Performed By: #### C MP, T7, TSH, LIPID #### [facility] [address] [place] [address] Dr. Aby Wiggins ALT [Catalytic activity/Vol] 30 U/L Normal 16-63 [facility] Comment on above: Performed By: #### C MP, T7, TSH, LIPID #### [facility] [address] [place] [address] Dr. Aby Wiggins Anion gap [Moles/Vol] 11.9 mmol/L Normal [facility] Comment on above: Performed By: #### C MP, T7, TSH, LIPID #### [facility] [address] [address] [address] Aby Wiggins AST [Catalytic activity/Vol] 15 U/L Normal 15-37 [facility] Comment on above: Performed By: #### C MP, T7, TSH, LIPID #### [facility] [address] [address] [address] Aby Wiggins Bilirubin [Mass/Vol] 0.4 mg/dL Normal 0.2-1.3 [facility] Comment on above: Performed By: #### C MP, T7, TSH, LIPID #### [facility] [address] [place] [address] Dr. Aby Wiggins Calcium [Mass/Vol] 8.7 mg/dL Normal 8.5-10.1 [facility] Comment on above: Performed By: #### C MP, T7, TSH, LIPID #### [facility] [address] [place] [address] Dr. Aby Wiggins Chloride [Moles/Vol] 105 mmol/L Normal 98-107 [facility] Comment on above: Performed By: #### C MP, T7, TSH, LIPID #### [facility] [address] [place] [address] Dr. Aby Wiggins CO2 [Moles/Vol] 28.8 mmol/L Normal 22.0-30.0 [facility] Comment on above: Performed By: #### C MP, T7, TSH, LIPID #### [facility] [address] [place] [address] Dr. Aby Wiggins Creatinine [Mass/Vol] 0.96 mg/dL Normal 0.66-1.25 [facility] Comment on above: Performed By: #### C MP, T7, TSH, LIPID #### [facility] [address] [place] [address] Dr. Aby Wiggins EGFR-AF [place] =60 Normal >=60 [facility] Comment on above: Performed By: #### C MP, T7, TSH, LIPID #### [facility] [address] [place] [address] Dr. Aby Wiggins EGFR-NON AF [place] >60 Normal >=60 [facility] Comment on above: Performed By: #### C MP, T7, TSH, LIPID #### [facility] [address] [address] [address] Aby Wiggins Globulin (S) [Mass/Vol] 3.6 g/dL Normal [facility] Comment on above: Performed By: #### C MP, T7, TSH, LIPID #### [facility] [address] [address] [address] Aby Wiggins Glucose [Mass/Vol] 96 mg/dL Normal 74-106 [facility] Comment on above: Performed By: #### C MP, T7, TSH, LIPID #### [facility] [address] [place] [address] Dr. Aby Wiggins Potassium [Moles/Vol] 4.7 mmol/L Normal 3.4-5.0 [facility] Comment on above: Performed By: #### C MP, T7, TSH, LIPID #### [facility] [address] [place] [address] Dr. Aby Wiggins Protein [Mass/Vol] 7.7 g/dL Normal 6.1-8.2 [facility] Comment on above: Performed By: #### C MP, T7, TSH, LIPID #### [facility] [address] [place] [address] Dr. Aby Wiggins Sodium [Moles/Vol] 141 mmol/L Normal 137-145 [facility] Comment on above: Performed By: #### C MP, T7, TSH, LIPID #### [facility] [address] [place] [address] Dr. Aby Wiggins Urea nitrogen [Mass/Vol] 9.0 mg/dL Normal 7.0-18.0 [facility] Comment on above: Performed By: #### C MP, T7, TSH, LIPID #### [facility] [address] [place] [address] Dr. Aby Wiggins Urea nitrogen/Creatinine [Mass ratio] 9.4 mg/mg Normal [facility] Comment on above: Performed By: #### C MP, T7, TSH, LIPID #### [facility] [address] [place], [place] [address] Dr. Aby Wiggins TSHon 02-20-2022 TSH 1.096 uIU/mL Normal 0.470-4.68 0 [facility] Comment on above: Performed By: #### C MP, T7, TSH, LIPID #### [facility] [address] [place], [place] [address] Dr. Aby Wiggins TSH RANGE SEE BELOW Normal [facility] Comment on above: Result Comment: <0.3 4 UIU/ml HYPERTHYROID 0.34-5.60 UIU/ml EUTHYROID >5.60 UIU/ml HYPOTHYROID Performed By: #### C MP, T7, TSH, LIPID #### [facility] [address] [address] [address] Aby Wiggins Vital Signs Date Time Vital Sign Value Performing Clinician Facility 12-05-2024 14:20-0500 Blood Pressure Location Eleazar MIMS [facility] [place] 12-05-2024 14:20-0500 Diastolic blood pressure 78 mm[Hg] Eleazar COURTNEYL [facility] [place] 12-05-2024 14:20-0500 Heart rate 71 /min Eleazar COURTNEYL [facility] [place] 12-05-2024 14:20-0500 Respiratory rate 16 /min Eleazar COURTNEYL [facility] [place] 12-05-2024 14:20-0500 Systolic blood pressure 120 mm[Hg] Eleazar COURTNEYL [facility] [place] 06-27-2023 20:22-0400 Body height 187.96 cm MD Jovita Martinez Work Phone: [facility] 06-27-2023 20:22-0400 Body temperature 97.6 [degF] MD Jovita Martinez Work Phone: [facility] 06-27-2023 20:22-0400 Body weight 83.4 kg MD Jovita Martinez Work Phone: [facility] 06-27-2023 20:22-0400 Diastolic blood pressure 74 mm[Hg] MD Jovita Martinez Work Phone: [facility] 06-27-2023 20:22-0400 Heart rate 52 /min MD Jovita Martinez Work Phone: [facility] 06-27-2023 20:22-0400 Respiratory rate 16 /min MD Jovita Martinez Work Phone: [facility] 06-27-2023 20:22-0400 SaO2% (BldA) [Mass fraction] 100 % MD Jovita Martinez Work Phone: [facility] 06-27-2023 20:22-0400 Systolic blood pressure 140 mm[Hg] MD Jovita Martinez Work Phone: [facility] 02-12-2023 22:31-0400 Diastolic blood pressure 83 mm[Hg] Kaylinn Dokken [facility] 02-12-2023 22:31-0400 Heart rate 60 /min Kaylinn Dokken [facility] 02-12-2023 22:31-0400 Mean blood pressure 96 mm[Hg] Kaylinn Dokken [facility] 02-12-2023 22:31-0400 Respiratory rate 20 /min Kaylinn Dokken [facility] 02-12-2023 22:31-0400 SaO2% (BldA) [Mass fraction] 97 % Kaylinn Dokken [facility] 02-12-2023 22:31-0400 Systolic blood pressure 122 mm[Hg] Kaylinn Dokken [facility] 02-12-2023 20:49-0400 Body temperature 97.7 [degF] Emerita Ardon [facility] 02-12-2023 20:49-0400 Diastolic blood pressure 75 mm[Hg] Rachanan Azucenaen [facility] 02-12-2023 20:49-0400 Heart rate 59 /min Emerita Ardon [facility] 02-12-2023 20:49-0400 Respiratory rate 18 /min Emerita Ardon [facility] 02-12-2023 20:49-0400 SaO2% (BldA) [Mass fraction] 99 % Emerita Ardon [facility] 02-12-2023 20:49-0400 Systolic blood pressure 130 mm[Hg] Emerita Ardon [facility] 02-07-2023 17:00-0400 Body height 185.42 cm Kaykay Barbara Other [employer] Other 02-07-2023 17:00-0400 Body mass index (BMI) [Ratio] 22.43 kg/m2 Kaykay Barbara Other [employer] Other 02-07-2023 17:00-0400 Body temperature 98 [degF] Kaykay Barbara Other [employer] Other 02-07-2023 17:00-0400 Body weight 77.11 kg Kaykay Barbara Other [employer] Other 02-07-2023 17:00-0400 Respiratory rate 18 /min Kaykay Barbara Other [employer] Other 02-07-2023 17:00-0400 SaO2% (BldA) [Mass fraction] 96 % Kaykay Jimenez Other [employer] Other 01-14-2023 08:58-0500 Body height 188 cm Mauricio Cowan MD Work Phone: [employer] 01-14-2023 08:58-0500 Body mass index (BMI) [Ratio] 22.21 kg/m2 Mauricio Cowan MD Work Phone: [employer] 01-14-2023 08:58-0500 Body temperature 98.71 [degF] Mauricio Cowan MD Work Phone: [employer] 01-14-2023 08:58-0500 Body weight 78.47 kg Mauricio Cowan MD Work Phone: [employer] 01-14-2023 08:58-0500 Diastolic blood pressure 72 mm[Hg] Mauricio Cowan MD Work Phone: [employer] 01-14-2023 08:58-0500 Heart rate 60 /min Mauricio Cowan MD Work Phone: [employer] 01-14-2023 08:58-0500 Respiratory rate 18 /min Mauricio Cowan MD Work Phone: [employer] 01-14-2023 08:58-0500 SaO2% (BldA) [Mass fraction] 99 % Mauricio Cowan MD Work Phone: [facility] 01-14-2023 08:58-0500 Systolic blood pressure 126 mm[Hg] Mauricio Cowan MD Work Phone: [facility] 10-13-2022 08:25-0500 Body height 190.5 cm Mauricio Cowan MD Work Phone: [facility] 10-13-2022 08:25-0500 Body mass index (BMI) [Ratio] 21.62 kg/m2 Mauricio Cowan MD Work Phone: [employer] 10-13-2022 08:25-0500 Body temperature 97.2 [degF] Mauricio Cowan MD Work Phone: [employer] 10-13-2022 08:25-0500 Body weight 78.47 kg Mauricio Cowan MD Work Phone: [facility] 10-13-2022 08:25-0500 Diastolic blood pressure 62 mm[Hg] Mauricio Cowan MD Work Phone: [employer] 10-13-2022 08:25-0500 Heart rate 69 /min Mauricio Cowan MD Work Phone: [employer] 10-13-2022 08:25-0500 Respiratory rate 18 /min Mauricio Cowan MD Work Phone: [employer] 10-13-2022 08:25-0500 SaO2% (BldA) [Mass fraction] 100 % Mauricio Cowan MD Work Phone: [employer] 10-13-2022 08:25-0500 Systolic blood pressure 113 mm[Hg] Mauricio Cowan MD Work Phone: [employer] 10-06-2021 14:00-0500 Body height 185.42 cm Margaux Vincent Other [employer] Other 10-06-2021 14:00-0500 Diastolic blood pressure 70 mm[Hg] Margaux Vincent Other [employer] Other 10-06-2021 14:00-0500 SaO2% (BldA) [Mass fraction] 99 % [employer] Other [employer] Other 10-06-2021 14:00-0500 Systolic blood pressure 124 mm[Hg] Margaux Vincent Other [facility] [employer] Other Encounters Encounter Date Encounter Type Care Provider Facility Start: 12-05-2024 End: 12-05-2024 ambulatory Eleazar MIMS Facility: [facility] Start: 12-05-2024 End: 12-05-2024 Patient encounter procedure Eleazar MIMS [facility] Start: 11-13-2024 End: 11-14-2024 Office outpatient visit 25 minutes Sofya Dsouza [employer]OMATIC LATHE OPERATOR[employer]ELRY SALES COORDINATOR Work Phone: [facility] Comment on above: Neuropathic pain (Pr imary Dx); (BWC) Displaced comminuted fracture of shaft of left tibia, subsequent encounter for closed fracture with delayed healing; Pain syndrome, chronic; Encounter for medication monitoring; Pain in left jimenez; Lumbar radiculopathy Start: 11-13-2024 End: 11-14-2024 ambulatory UNKNOWN PROVIDER Facility:[facility] Start: 11-05-2024 ambulatory Eleazar MIMS Facility:[facility] Start: 08-10-2024 End: 08-10-2024 Office outpatient visit 25 minutes Sofya Dsouza AUTOMATIC LATHE OPERATOR-JEWELRY SALES COORDINATOR Work Phone: [facility] Comment on above: (BWC) Displaced comm inuted fracture of shaft of left tibia, subsequent encounter for closed fracture with delayed healing (Primary Dx); Neuropathic pain; Pain syndrome, chronic; Encounter for medication monitoring Start: 08-10-2024 End: 08-10-2024 ambulatory SOFYA DSOUZA Facility:[facility] Start: 07-16-2024 End: 07-16-2024 ambulatory SOFYA DSOUZA Facility:[facility] Start: 07-16-2024 End: 07-16-2024 Subsequent hospital visit by physician Phe Ip/Op X-Ray 6 [facility] Comment on above: Pain in left jimenez Start: 07-09-2024 End: 07-09-2024 ambulatory Not Available Start: 05-04-2024 End: 05-04-2024 Office outpatient visit 25 minutes Sofya Dsouza AUTOMATIC LATHE OPERATOR-JEWELRY SALES COORDINATOR Work Phone: [facility] Comment on above: (BWC) Displaced comm inuted fracture of shaft of left tibia, subsequent encounter for closed fracture with delayed healing (Primary Dx); Neuropathic pain; Pain syndrome, chronic Start: 05-04-2024 End: 05-04-2024 ambulatory [facility] Facility:[facility] Start: 02-19-2024 [facility]: Start: 02-03-2024 End: 02-03-2024 Office outpatient visit 25 minutes Sofya Dsouza AUTOMATIC LATHE OPERATOR-JEWELRY SALES COORDINATOR Other Phone: [facility] Comment on above: Neuropathic pain; Pain syndrome, chronic; (BWC) Displaced comminuted fracture of shaft of left tibia, subsequent encounter for closed fracture with delayed healing Start: 02-03-2024 End: 02-03-2024 ambulatory [facility]OU[facility] Start: 11-11-2023 End: 11-11-2023 Office outpatient visit 25 minutes [employer]OMATIC LATHE OPERATOR-JEWELRY SALES COORDINATOR Work Phone: [facility] Comment on above: (BWC) Displaced comm inuted fracture of shaft of left tibia, subsequent encounter for closed fracture with delayed healing (Primary Dx); Neuropathic pain; Pain syndrome, chronic Start: 08-23-2023 End: 08-23-2023 Office outpatient visit 25 minutes Sofya Dsouza AUTOMATIC LATHE OPERATOR-JEWELRY SALES COORDINATOR Work Phone: [facility] Comment on above: (BWC) Displaced comm inuted fracture of shaft of left tibia, subsequent encounter for closed fracture with delayed healing (Primary Dx); Neuropathic pain; Pain syndrome, chronic Start: 06-27-2023 End: 06-28-2023 Emergency department patient visit Dulce Fierro Facility:[facility] Start: 06-27-2023 End: 06-27-2023 Emergency department patient visit MD Jovita Martinez Work Phone: [facility] Work Phone: Start: 05-02-[address] [facility] Facility:[id number] Start: 05-02-2023 Patient encounter procedure Jovita Martinez [facility] Work Phone: Start: 05-02-2023 Letter encounter - - [facility] Start: 04-27-2023 Letter encounter Mauricio acosta MD Work Phone: [facility] Start: 04-27-2023 End: 04-27-2023 Office outpatient visit 15 minutes Turner Swenson DO Work Phone: [facility] Comment on above: Closed trimalleolar fracture of ankle with high fibular fracture (Primary Dx); Nerve pain Start: 04-27-2023 End: 04-27-2023 Subsequent hospital visit by physician Phe Op X-Ray 4 [facility] Comment on above: Closed displaced spi ral fracture of shaft of right femur with routine healing, subsequent encounter; Closed trimalleolar fracture of ankle with high fibular fracture Start: 04-26-2023 Letter encounter Chinyere paris PA-C Work Phone: [facility] Start: 02-24-2023 End: 02-24-2023 ambulatory Turner Swenson Facility:[facility] Start: 02-24-2023 End: 02-24-2023 ambulatory MD Jovita Martinez Work Phone: [facility] Work Phone: Start: 02-24-2023 End: 02-24-2023 Discharged Recurring MD Jovita Martinez Work Phone: [facility] Francisco Tai Start: 02-12-2023 End: 02-12-2023 Emergency department patient visit Emerita Ardon [facility] Start: 02-07-2023 End: 02-07-2023 ambulatory Kaykay Barbara Other [employer] Other Start: 02-07-2023 Office outpatient vi sit [address] [facility] Start: 01-14-2023 End: 01-14-2023 Office outpatient visit 15 minutes Mauricio Cowan MD Work Phone: [facility] Comment on above: Neuropathic pain (Pr imary Dx); Pain syndrome, chronic; (BWC) Displaced comminuted fracture of shaft of left tibia, subsequent encounter for closed fracture with delayed healing; Body mass index (BMI) 22.0-22.9, adult Start: 11-30-2022 Letter encounter Turner valente DO Work Phone: [facility] Start: 10-13-2022 End: 10-13-2022 Office outpatient new 45 minutes Mauricio Cowan MD Work Phone: [facility] Comment on above: Pain syndrome, chron ic (Primary Dx); Neuropathic pain; Body mass index (BMI) 21.0-21.9, adult Start: 08-16-2022 Letter encounter Turner valente DO Work Phone: [facility] Start: 08-16-2022 End: 08-16-2022 Office outpatient visit 15 minutes Ortho Trauma Resident Work Phone: [facility] Comment on above: Paresthesia of left lower extremity (Primary Dx); Critical polytrauma Start: 04-05-2022 End: 04-05-2022 Orders Only Turner Swenson DO Work Phone: [facility] Comment on above: Closed displaced com minuted fracture of shaft of left tibia, initial encounter; Closed displaced spiral fracture of shaft of right femur with routine healing, subsequent encounter Start: 04-05-2022 End: 04-05-2022 Office outpatient visit 15 minutes Turner Swenson DO Work Phone: [facility] Comment on above: Closed displaced com minuted fracture of shaft of left tibia, initial encounter (Primary Dx) Start: 03-29-2022 End: 03-30-[address] JOVITA MARTINEZ Facility:[facility]1 Start: 03-10-2022 End: 03-11-[address] JOVITA MARTINEZ Facility:[facility] Start: 02-24-2022 Encounter for genera l adult medical examination without abnormal findings DR JOVITA MARTINEZ [facility] Start: 02-20-2022 End: 02-21-[address] JOVITA MARTINEZ Facility:[facility] Start: 02-20-2022 End: 02-21-2022 Encounter for general adult medical examination without abnormal findings DR JOVITA MARTINEZ Facility:[facility] Start: 11-03-2021 End: 11-03-2021 ambulatory Remberto Chapa Other [employer] Other Start: 11-03-2021 Telephone encounter Remberto Chapa [facility] Start: 10-06-2021 End: 10-06-2021 ambulatory Margaux Vincent Other [employer] Other Start: 10-06-2021 Office outpatient vi sit 15 minutes Margaux Vincent [facility] Procedures Date Procedure Procedure Detail Performing Clinician Start: 11-13-2024 Drug screen class list a Sofya Dsouza APRN-JEWELRY SALES COORDINATOR Work Phone: Start: 07-16-2024 Radiologic examinati on tibia & fibula 2 views Sofya Dsouza APRN-JEWELRY SALES COORDINATOR Work Phone: Start: 04-27-2023 End: 04-27-2023 Radiologic examination tibia & fibula 2 views Chinyere Curry PA-C Work Phone: Start: 04-05-2022 Radiologic examinati on tibia & fibula 2 views Turner Swenson DO Work Phone: Start: 04-05-2022 Radiologic examinati on femur minimum 2 views Turner Swenson DO Work Phone: Open reduction of fr acture with internal fixation Eleazar [facility] 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) Emerita Ardon Tympanic ventilation tube (physical object) Eleazar [facility] Plan of Treatment Date Care Activity Detail Author Start: 2032 Shingles (RZV) Vacci ne (1 of 2) Shingles (RZV) Vaccine (1 of 2) [facility] Start: 02-20-2027 Lipid panel Ch[facility] Start: 02-05-2025 End: 02-05-2025 Telemedicine consultation with patient 02/05/2025 3:30 PM EDT Telemedicine [facility] [address] [place] [address] Sofya Dsouza, AUTOMATIC LATHE OPERATOR-JEWELRY SALES COORDINATOR [address] [place] [address] [facility] Start: 11-13-2024 End: 11-13-2025 XR Lumbar spine Views W flexion and W extension XR L-SPINE W/FLEX/EXT MINIMUM 6 VIEWS Imaging Routine Lumbar radiculopathy Expected: 11/13/2024, Expires: 11/13/2025 [employer] Work Phone: Comment on above: Expected: 11/13/2024 , Expires: 11/13/2025 Start: 11-09-2024 End: 11-09-2024 Patient encounter procedure 11/09/2024 2:00 PM EST Office Visit [facility] [address] [place] [address] Sofya Dsouza, AUTOMATIC LATHE OPERATOR-JEWELRY SALES COORDINATOR [address] [place] [address] [facility] Start: 08-28-2024 Influenza vaccination Influenza Vacc ine (#1) [facility] Start: 08-10-2024 End: 08-10-2024 Telemedicine consultation with patient 08/10/2024 1:30 PM EDT Telemedicine [facility] [address] [place] [address] Sofya Dsouza APRN-JEWELRY SALES COORDINATOR [address] [place] [address] [facility] Start: 07-29-2024 COVID-19 Vaccine () COVID-19 Vaccine () [facility] Start: 07-29-2024 COVID-19 Vaccine () COVID-19 Vaccine () [facility] Start: 07-29-2024 Influenza vaccination Influenza Vacc ine (#1) [facility] Start: 05-04-2024 End: 05-04-2024 Patient encounter procedure 05/04/2024 1:00 PM EDT Office Visit [facility] [address] [place] [address] Sofya Dsouza 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 [address] [place] [address] Sofya Dsouza AUTOMATIC LATHE OPERATOR-JEWELRY SALES COORDINATOR [address] [place] [address] [facility] Start: 11-11-2023 End: 11-11-2023 Patient encounter procedure 11/11/2023 1:00 PM EST [facility] [address] [place] [address] Sofya Dsouza AUTOMATIC LATHE OPERATOR-JEWELRY SALES COORDINATOR [address] [place] [address] [facility] Start: 07-29-2023 COVID-19 Vaccine ( season) COVID-19 Vaccine () [facility] Start: 07-29-2023 Influenza vaccination Influenza Vacc ine (#1) [facility] Start: 06-27-2023 Plain X-ray of right hand XR hand RT min 3V* [facility] Start: 06-27-2023 Plain X-ray of right wrist XR wrist RT min 3V* [facility] Start: 06-27-2023 XR Hand - right GE 3 Views [facility] Start: 06-27-2023 XR Wrist - right GE 3 Views [facility] Start: 05-06-2023 End: 05-06-2023 Patient encounter procedure 05/06/2023 1:00 PM EDT Procedure Visit [facility] [address] [id number] [facility] Start: 04-27-2023 End: 04-27-2023 Patient encounter procedure 04/27/2023 10:45 AM EDT Office Visit [facility] [address] [place] [address] Turner Swenson DO [address] [facility] [place] [address] [facility] Start: 04-26-2023 End: 04-26-2024 XR Femur - right 2 Views XR FEMUR RIGHT MINIMUM 2 VIEWS Imaging Routine Closed displaced spiral fracture of shaft of right femur with routine healing, subsequent encounter Expected: 04/26/2023, Expires: 04/26/2024 [facility] Work Phone: Comment on above: Expected: 04/26/2023 , Expires: 04/26/2024 Start: 04-26-2023 End: 04-26-2024 XR Tibia and Fibula - left Views XR TIBIA LEFT 2 VIEWS Imaging Routine Closed trimalleolar fracture of ankle with high fibular fracture Expected: 04/26/2023, Expires: 04/26/2024 [facility] Comment on above: Expected: 04/26/2023 , Expires: 04/26/2024 Start: 04-13-2023 End: 04-13-2023 Patient encounter procedure 04/13/2023 Office Visit Pain & Healing Mauricio Cowan MD [address] [place] [address] [facility] Start: 12-15-2022 End: 12-15-2022 Patient encounter procedure 12/15/2022 Office Visit Pain & Healing Mauricio Cowan MD [address] [place] [address] [facility] Start: 08-28-2022 Influenza vaccination Influenza Vacc ine (#[facility]) [facility] Start: 01-28-2022 COVID-19 Vaccine (4 - Booster for Pfizer series) COVID-19 Vaccine (4 - Booster for Pfizer series) [facility] Start: 2017 [facility]id [facility] Start: 2009 HPV Vaccine (optiona l start 27-45 years) HPV Vaccine (optional start 27-45 years) [facility] Start: 2001 Hepatitis A (HAV) Va ccine (optional start 19+ years) Hepatitis A (HAV) Vaccine (optional start 19+ years) [facility] Start: 2001 Hepatitis B vaccination Hepati tis B (HBV) Vaccine (1 of 3 - 19+ 3-dose series) [facility] Start: 2000 Hepatitis C screening Hepatitis C An tibody [facility] Start: 2000 Tetanus + diphtheria + acellular pertussis vaccine (product) Tdap Booster [facility] Start: 1982 COVID-19 Vaccine ( formulation) COVID-19 Vaccine ( formulation) [facility] Start: 1982 Hepatitis B vaccination Hepati tis B (HBV) Vaccine (1 of 3 - 3-dose series) [facility] End: 10-27-2023 Electromyography EMG EMG Routine Closed trimalleolar fracture of ankle with high fibular fracture Nerve pain 1 Occurrences starting 04/27/2023 until 10/27/2023 [employer] Work Phone: Comment on above: 1 Occurrences starti ng 04/27/2023 until 10/27/2023 Patient Education Finger Sprain Exercises [facility] Work Phone: Patient referral [facility] Work Phone: Immunizations Immunization Date Immunization Notes Care Provider Fa bo 07-09-2024 tuberculin skin test ; purified protein derivative solution, intradermal Phe 6 [facility] 12-03-2021 influenza, injectabl e, quadrivalent, preservative free [employer] Work Phone: [facility] 12-03-2021 Moderna Monovalent (12+ yrs) COVID-19 vaccine, mRNA, spike protein, LNP, PF, 100 mcg/0.5 mL (OHC=125) [employer] Work Phone: [facility] 12-03-2021 influenza virus vaccine, unspecified formulation [employer] Work Phone: [facility] 04-04-2021 COVID-19, mRNA, LNP- S, PF, 30 mcg/0.3 mL dose Kaylinn Dokken [facility] Comment on above: Reason for Medicatio n: Prophylaxis 03-14-2021 COVID-19, mRNA, LNP- S, PF, 30 mcg/0.3 mL dose Kaylinn Dokken [facility] Comment on above: Reason for Medicatio n: Prophylaxis Payers Date Payer Category Payer Blue [employer] Blue Shield [id number] 2023 Self-pay [id number] 2023 Unknown [id number] 2.16. [id number] 2021 Worker's Compensation 1.2.84 [id number] 2021 Unknown [id number] 2020 Unknown [id number] 1982 Unknown [id number] 2.16.84 [id number] 1982 Unknown [id number] 2.16.84 [id number] 1982 Unknown [id number] 2.16.84 [id number] 1982 Unknown [id number] 2.16.8 [id number] 1982 Unknown [id number] 2.16. [id number] 1982 Unknown [id number] 2.16. [id number] 1982 Unknown [id number] 2.16. [id number] 1982 Unknown [id number] 2.16. [id number] 1982 Unknown [id number] 2.16.8 [id number] 1959 Unknown [id number] Unknown [id number] 2.16.8 [id number] Unknown [id number] 2.16.8 [id number] Social History Date Type Detail Facility Start: 05-19-2021 End: 12-05-2024 Tobacco smoking status [facility] End: 01-19-2020 History of tobacco use Current smoker [facility] Start: 05-19-2021 End: 01-14-2023 Tobacco use and exposure Smokeless tobacco non-user [facility] Start: 1980 Sex Assigned At [facility] Start: 04-13-2023 End: 08-15-2023 Sex Assigned At [facility] End: 01-19-2020 History of tobacco use Cigarette Smoker [facility] Tobacco smoking status No Smokin g Status Entered [facility] Start: 1982 Sex Assigned At Male [facility] Start: 04-13-2023 End: 08-15-2023 History of Social [...] Phone: Start: 05-19-2021 Sex Male (finding) [facility] Medical Equipment Procedure Code Equipment Code Equipment Origin al Text Equipment Identifier Dates Nail 10mm 360mm Tib T2 Alpha Ea1 1585-0916s - [id number] Start: 05-19-2021 Scr Bn 4mm 36mm Asns Iii Ti Ea1 [id number] - [id number] Start: 05-19-2021 T2 Alpha Tibia System End Cap Tibia [id number] Start: 05-19-2021 Nail 10mm 440mm Fem Gt Rt T2 Ea1 2333-1044s - [id number] Start: 05-19-2021 Nail 10mm 360mm Tib T2 Alpha Ea1 2341-1036s - [id number] Start: 05-19-2021 Scr Bn 4mm 60mm Asns Iii Ti Ea1 [id number] - [id number] Start: 05-19-2021 4.0 X 42 Mm Screw [id number] Start: 05-19-2021 Scr Bn 5mm 45mm T2 Alpha Lck Ea1 2360-5045s - [id number] Start: 05-19-2021 Scr Bn 5mm 35mm T2 Alpha Lck Ea1 2360-5035s - [id number] Start: 05-19-2021 Scr Bn 5mm 42.5m m T2 Alpha Lck Ea1 23605042s - [id number] Start: 05-19-2021 Scr Bn 5mm 37.5m m T2 Alpha Lck Ea1 23605037s - [id number] Start: 05-19-2021 Scr Bn 5mm 40mm T2 Alpha Lck Ea1 2360-5040s - [id number] Start: 05-19-2021 Screw 6.5 X 100m m Lag Ea1 1897-6100s - [id number] Start: 05-19-2021 Screw 6.5 X 95mm Lag Ea1 1897-6095s - [id number] Start: 05-19-2021 Scr Bn 5mm 55mm T2 Alpha Lck Ea1 2360-5055s - [id number] Start: 05-19-2021 Scr Bn 5mm 50mm T2 Alpha Lck Ea1 2360-5050s - [id number] Start: 05-19-2021 Screw 3.5 X 12mm Self-Tapping Ea1 204.812 - [id number] Start: 05-19-2021 Scr Bn 4mm 65mm Asns Iii Ti Ea1 638126 - [id number] Start: 05-19-2021 Functional Status Date Assessment Result Facility 12-05-2024 Functional Status N/A [facility] 02-12-2023 Functional Status N/A Sahu Jaime Rodríguez [facility] Clinical Notes 05-19-2021 to 12-05-2024 Tawanda SofyaITALO - 11/13/2024 1:50 PM Sofya NicoleITALO - 08/12/2024 5:18 PM EDTCMarie morales MTA - 05/04/2024 1:14 PM EDChelsyhans SofyaITALO - 05/04/2024 1:04 PM EDT Note Date [...] Given Prophylaxis SARS-Co (more content not included)... [facility] Comment on above: Result Comment: Elec tronically [...] saphenus blocks if pain worsen F/U with MEDIA MARKETING SPECIALIST in 3 M The impression and plan [...] Ankle pain, right. COMPARISON: None. ACCESSION NUMBER(S): [id number] ORDERING CLINICIAN: OBEY GAUTHIER FINDINGS: Multiple views [...] substances. ITALO Espinal documented in this encounter [facility] 08-12-2024 History of Present illness Narrative [...] saphenus blocks if pain worsen F/U with MEDIA MARKETING SPECIALIST in 3 M The impression and plan [...] Ankle pain, right. COMPARISON: None. ACCESSION NUMBER(S): [id number] ORDERING CLINICIAN: OBEY GAUTHIER FINDINGS: Multiple views [...] substances. ITALO Espinal documented in this encounter [facility] 05-04-2024 History of Present illness Narrative [...] saphenus blocks if pain worsen F/U with MEDIA MARKETING SPECIALIST in 3 M The impression and plan [...] Ankle pain, right. COMPARISON: None. ACCESSION NUMBER(S): [id number] ORDERING CLINICIAN: OBEY GAUTHIER FINDINGS: Multiple views [...] in left tibia. COMPARISON: None. ACCESSION NUMBER(S): [id number] ORDERING CLINICIAN: OBEY GAUTHIER FINDINGS: Two views [...] substances. ITALO Espinal documented in this encounter [facility] 02-03-2024 History of Present illness Narrative [...] saphenus blocks if pain worsen F/U with MEDIA MARKETING SPECIALIST in 3 M The impression and plan [...] Ankle pain, right. COMPARISON: None. ACCESSION NUMBER(S): [id number] ORDERING CLINICIAN: OBEY GAUTHIER FINDINGS: Multiple views [...] in left tibia. COMPARISON: None. ACCESSION NUMBER(S): [id number] ORDERING CLINICIAN: OBEY GAUTHIER FINDINGS: Two views [...] ITALO Espinal documented in this encounter [employer] Work Phone: 11-11-2023 History of Present illness [...] an analgesic effect of pain relief from 07/07 to 2 with medication therapy; and is not demonstrating [...] saphenus blocks if pain worsen F/U with MEDIA MARKETING SPECIALIST in 3 M The impression and plan [...] Ankle pain, right. COMPARISON: None. ACCESSION NUMBER(S): [id number] ORDERING CLINICIAN: OBEY GAUTHIER FINDINGS: Multiple views [...] in left tibia. COMPARISON: None. ACCESSION NUMBER(S): [id number] ORDERING CLINICIAN: OBEY GAUTHIER FINDINGS: Two views [...] substances. ITALO Espinal documented in this encounter [facility] 08-23-2023 History of Present illness Narrative [...] saphenus blocks if pain worsen F/U with MEDIA MARKETING SPECIALIST in 3 M The impression and plan were discussed and explained in detail. All the questions were answered. Education was provided accordingly. The procedure was explained in detail, along with risks and potential side effects. The appropriate use of the medications, including storage, risks (including addiction) and potential sides effects were explained and discussed. Last CO EVAL and Plan: Same as last [...] Ankle pain, right. COMPARISON: None. ACCESSION NUMBER(S): [id number] ORDERING CLINICIAN: OBEY GAUTHIER FINDINGS: Multiple views [...] in left tibia. COMPARISON: None. ACCESSION NUMBER(S): [id number] ORDERING CLINICIAN: OBEY GAUTHIER FINDINGS: Two views [...] substances. ITALO Espinal documented in this encounter [facility] 04-27-2023 History of Present illness Narrative [...] coming from. All his questions were answered. [facility] Orthopaedic Trauma/Adult Reconstruction 04/27/23 Orthopaedic Surgery [...] Curry PA-C 04/27/23 documented in this encounter [facility] 04-27-2023 Instructions Chinyere Curry PA-C - 04/27/2023 12:27 PM EDT Call to schedule PT. Call to schedule EMG. Follow up as needed. documented in this encounter [facility] 02-13-2023 Hospital Discharge instructions Patient Education [...] medicines to help relieve symptoms, such as: Hlew-flt-anyoktm cold medicines. Cough suppressants. Coughing is a [...] and other clear broths. General instructions Take alfq-nxp-vfdjlzf and prescription medicines only as told by [...] and water are not available, use hand bowl attendant. ?Avoid touching your mouth, face, eyes, or [...] 05/10/2002 Document Revised: 11/22/2019 Document Reviewed: 06/30/2018 [employer] Patient Education [employer]. Follow Up Care 02/12/2023 20:48:56 With:Jovita Martinez Address: [address] [place], [place] [address] Business (1) When:02/15/2023 Comments:Call the office of [...] you develop any new or worsening symptoms. [facility] 02-07-2023 Evaluation note Encounter Date Diagnosis [...] no improvement in 2 to 3 days. [employer] Other 02-17-2023 History of Present illness Narrative* [...] Outpatient Medications: Naproxen Sodium (Aleve) 220 MG CAPS, Aleve, Disp: , Rfl: pregabalin (Lyrica) 50 MG [...] saphenus blocks if pain worsen F/U with MEDIA MARKETING SPECIALIST in 3 M The impression and plan were discussed and explained in detail. All the questions were answered. Education was provided accordingly. The procedure was explained in detail, along with risks and potential side effects. The appropriate use of the medications, including storage, risks (including addiction) and potential sides effects were explained and discussed. Maurciio Cowan MD * Antonietta Short - 01/14/2023 8:57 AM EST Patient was identified by name and date of . Perla Short Patient at risk for falls:No Falls Risk protocol implemented: No documented in this [id number] History of Present illness Narrative* Ramya Lazaro - 10/13/2022 8:27 AM EST Patient was identified by name and date of . Ramya Lazaro Patient at risk for falls:No Falls Risk [...] PO Every 4 hours 40 7 June [id number]:51am, Disp: , Rfl: aspirin 81 MG enteric [...] 2m Mauricio Cowan MD documented in this [id number] History of Present illness Narrative* Kylee Cam [...] Alison Hogan MD Ortho Trauma Fellow Pager: [phone] documented in this [id number] Instructions* Patient Instructions* Alison Hogan MD - 08/16/2022 12:04 PM EDT -WBAT -Fractures healed -gabapentin for 1st webspace paresthesias, likely DPN irritation -F/u Dr. Garcia for pain management -F/u PRN for orthopedic injuries documented in this [id number] History of Present illness Narrative* Turner Swenson [...] PRN Bg Gomez MD ([facility]) Orthopaedic Surgery, PGY-2 * Shahida Camarena RN - 04/05/2022 11:03 AM EDT Patient was identified by name and date of . Shahida Camarena RN Patient at risk for falls:No Falls Risk protocol implemented: No documented in this [id number] Evaluation note* Encounter Date Diagnosis Assessment Notes [...] returned back to work, he notes Dr. Swenosn is concerned about slow healing of the [...] - S72.351A) Stable, follow up as needed. [employer] Other 06-22-2021 History of Present illness Narrative* History of Present Illness * 42-year-old male with history of tibial shaft fracture, fibula fracture as well as ankle fracture date of injury May 19, 2021 underwent intramedullary nailing and open reduction internal fixation right ankle by Dr. Swenson at [facility]. Patient presents today for a second [...] with the care receiving by Dr. Swenson. [facility] [facility] Work Phone: Evaluation + Plan note No data available for this section [facility] Diagnosis Closed displaced comminuted fracture [...] encounter [facility] Other Evaluation note* Diagnosis Paresthesia of left [...] in this [facility] assessment information [facility] Work Phone: Evaluation note* Diagnosis Closed [...] delayed healing documented in this encounter [employer] Work Phone: Evaluation note* Diagnosis Neuropathic [...] fractures secondary to work related accident 05/25/2021 [employer] Other Hospital Discharge instructions Additional Instructions Wear cock-up splint for the next 3 to 5 days Tylenol or Naprosyn if needed for pain Follow-up with [facility] call tomorrow for appointment Return here if any problems persist [facility] Work Phone: Hospital Discharge instructions No data available for this section [facility] General Surgery [place] Progress note No data available for this section [facility] Summary Purpose Family History Relationship Condition Age at Onset Recorded Date/T jose Not Specified Hypertension Unknown Advance Directives Latest Code Status on File Code Status [...] TIBIA LEFT 2 VIEWS Turner Swenson DO [address] [place] [address] [address] [place] [address] [facility] DIAGNOSTIC RADIOLOGY [address] [place] [address] [place] [address] Referral ID Status Reason Start Date Expiration Date Visits Re quested Visits Authorized [id number] Closed 04/05/2022 04/05/2023 1 1 Specialty Diagnoses / Procedures Referred By Contac t Referred To Contact Radiology Diagnoses Closed displaced spiral fracture of shaft of right femur with routine healing, subsequent encounter Procedures XR RT FEMUR MIN 2 VIEWS Turner Swenson DO [address] [place] [address] [place] [address] [facility] DIAGNOSTIC RADIOLOGY [address] [place] [address] [place] [address] Referral ID Status Reason Start Date Expiration Date Visits Re quested Visits Authorized [id number] Closed 04/05/2022 04/05/2023 1 1 Specialty Diagnoses / Procedures Referred By Contac t Referred To Contact Diagnoses Paresthesia of left lower extremity Alison Hogan MD [address] [place] [address] Mauricio Cowan MD [address] [place] [address] [place] [address] Referral ID Status Reason Start Date Expiration Date V isits Requested Visits Authorized [id number] Authorized 08/16/2022 08/16/2023 3 3 Comments Left 1st webspace parasthesias s/p tibial shaft fracture 1 year ago, likely DPN irritation Specialty Diagnoses / Procedures Referred By Contac t Referred To Contact Physical Therapy Diagnoses Critical polytrauma Alison Hogan MD [address] [place], [place] [id number] Physical Therapy [address] [place] [place] [address] Referral ID Status Reason Start Date Expiration Date Visits Requested Visits Authorized [id number] Pending Review [facility] 08/16/2022 08/16/2023 10 10 Scheduling Instructions SCHEDULING INSTRUCTIONS: Call [phone] to schedule your Physical Therapy appointment. We offer therapy services at many convenient locations. Please arrive 20 minutes prior to your appointment to register. It is important to bring your insurance cards and a personal identification card to your appointment. If you are unable to keep your appointment, cancel or reschedule by calling [phone] or via [employer]. Thank you! Question Answer Is this for [...] TIBIA LEFT 2 VIEWS Chinyere Curry PA-C [address] [place], [place] [id number] [facility] DIAGNOSTIC RADIOLOGY [address] [place] [address] Referral ID Status Reason Start Date Expiration Date V isits Requested Visits Authorized [id number] Authorized 04/26/2023 04/25/2024 1 1 Specialty Diagnoses / Procedures Referred By Contac t Referred To Contact Radiology Diagnoses Closed displaced spiral fracture of shaft of right femur with routine healing, subsequent encounter Procedures XR FEMUR RIGHT MINIMUM 2 VIEWS Chinyere Curry PA-C [address] [place] [address] [facility] DIAGNOSTIC RADIOLOGY [address] [place] [id number] Referral ID Status Reason Start Date Expiration Date V isits Requested Visits Authorized [id number] Authorized 04/26/2023 04/25/2024 1 1 Specialty Diagnoses / Procedures Referred By Contdilip t Referred To Contact Physical Therapy Diagnoses Closed trimalleolar fracture of ankle with high fibular fracture Nerve pain Chinyere Curry PA-C [address] [place], [place] [id number] Referral ID Status Reason Start Date Expiration Date V isits Requested Visits Authorized [id number] Authorized 04/27/2023 04/27/2024 10 10 Comments Strength and conditioning of left knee; quadriceps strengthing Specialty Diagnoses / Procedures Referred By Betsey rodríguez Referred To Contact Neurology Diagnoses Closed trimalleolar fracture of ankle with high fibular fracture Nerve pain Procedures EMG Chinyere Curry PA-C [address] [place] [address] Referral ID Status Reason Start Date Expiration Date V isits Requested Visits Authorized [id number] Pending Review 04/27/2023 04/27/2024 3 3 Specialty Diagnoses / Procedures Referred By Betsey rodríguez Referred To Contact Physical Therapy Diagnoses Closed trimalleolar fracture of ankle with high fibular fracture Nerve pain Chinyere Curry PA-C [address] [place] [address] Physical Therapy [address] [place] [address] Referral ID Status Reason Start Date Expiration Date Visits Requested Visits Authorized [id number] Pending Review [facility] 04/27/2023 04/27/2024 10 10 Question Answer Is [...] Expiration Date Visits Re quested Visits Authorized [id number] Closed 04/26/2023 04/25/2024 1 1 Referral ID Status Reason Start Date Expiration Date Visits Re quested Visits Authorized [id number] Closed 04/26/2023 04/25/2024 1 1 Specialty Diagnoses / Procedures Referred By Contac t Referred To Contact Radiology Diagnoses Pain in left jimenez Procedures XR TIBIA LEFT 2 VIEWS Sofya Dsouza, CANDELARIO-ELISSA [address] [place] [address] [facility] [address] [facility] [place] [id number] Referral ID Status Reason Start Date Expiration Date Visits Re quested Visits Authorized [id number] Closed 07/12/2024 07/12/2025 1 1 Chief Complaint and Reason for Visit Chief Complaint K R20.2 [id number] Chief Complaint rt wrist injury Chief Complaint * New Patient - [facility] * left ankle and tibia pain, history of fracture and surgery, x-rays today Additional Source Comments (unrecognized sect ion and content) No Status Records FoundNo Status Records FoundNo Status Records FoundNo Status Records FoundNo Status Records FoundNo Status Records FoundNo Status Records Found INFORMATION SOURCE (unrecogn ized section and content) DATE CREATED AUTHOR 03/31/2022 [facility] DATE CREATED AUTHOR AUTHOR'S ORGANIZ ATION 05/11/2023 [employer] DATE CREATED AUTHOR AUTHOR'S ORGANIZ ATION 05/30/2023 [facility] DATE CREATED AUTHOR AUTHOR'S ORGANIZ ATION 06/29/2023 [facility] DATE CREATED AUTHOR AUTHOR'S ORGANIZ ATION 07/11/2024 [facility] DATE CREATED AUTHOR AUTHOR'S ORGANIZ ATION 11/16/2024 [facility] DATE CREATED AUTHOR AUTHOR'S ORGANIZ ATION 12/07/2024 Luis Alberto Fr[facility] Care Teams (unrecognized sec tion and content) Personnel Name: Jovita Martinez MD Address: Address: [address] [place] [address] Block Trimmer Relationship Specialty Start Date End Date Turner Swenson DO [address] [place] [address] Physician Orthopaedic Trauma 07/31/21 Block Trimmer Relationship Specialty Start Date End Date Turner Swenson DO [address] [place] [address] Physician Orthopaedic Trauma 07/31/21 Block Trimmer Relationship Specialty Start Date End Date Turner Swenosn DO [address] [place] [address] [place] [address] Physician Orthopaedic Trauma 07/31/21 Block Trimmer Relationship Specialty Start Date End Date Turner Swenson DO [address] [place] [address] [place] [address] Physician Orthopaedic Trauma 07/31/21 Block Trimmer Relationship Specialty Start Date End Date Turner Swenson DO [address] [place] [address] [place] [address] Physician Orthopaedic Trauma 07/31/21 Block Trimmer Relationship Specialty Start Date End Date Turner Swenson DO [address] [place] [address] [place] [address] Physician Orthopaedic Trauma 07/31/21 Block Trimmer Relationship Specialty Start Date End Date Turner Swenson DO [address] [place] [address] Physician Orthopaedic Trauma 07/31/21 Block Trimmer Relationship Specialty Start Date End Date Turner Swenson DO [address] [place] [address] Physician Orthopaedic Trauma 07/31/21 Mauricio Cowan MD [address] [place] [address] Physician Anesthesiology 10/30/22 Block Trimmer Relationship Specialty Start Date End Date Turner Swenson DO [address] [place] [address] Physician Orthopaedic Trauma 07/31/21 Mauricio Cowan MD [address] [place] [address] Physician Anesthesiology 10/30/22 Team Status: Active Member Role Status Dates Jovita Martinez MD Primary Care Provider Active Team Status: Inactive Member Role Status Dates Jovita Martinez MD Primary Care Provider Active Turner Swenson DO Attending Provider Active Block Trimmer Relationship Specialty Start Date End Date Turner Swenson DO [address] [place] [address] [place] [address] Physician Orthopaedic Trauma 07/31/21 Mauircio Cowan MD [address] [place] [address] [place] [address] Physician Anesthesiology 10/30/22 Block Trimmer Relationship Specialty Start Date End Date Turner Swenson DO [address] [place] [address] [place] [address] Physician Orthopaedic Trauma 07/31/21 Mauricio Cowan MD [address] [place] [address] [place] [address] Physician Anesthesiology 10/30/22 Block Trimmer Relationship Specialty Start Date End Date Turner Swenson DO [address] [place] [address] [place] [address] Physician Orthopaedic Trauma 07/31/21 Mauricio Cowan MD [address] [place] [address] Physician Anesthesiology 10/30/22 Block Trimmer Relationship Specialty Start Date End Date Turner Swenson DO [address] [place] [address] Physician Orthopaedic Trauma 07/31/21 Mauricio Cowan MD [address] [place] [address] Physician Anesthesiology 10/30/22 Block Trimmer Relationship Specialty Start Date End Date Turner Swenson DO [address] [place] [address] Physician Orthopaedic Trauma 07/31/21 Mauricio Cowan MD [address] [place] [address] Physician Anesthesiology 10/30/22 Block Trimmer Relationship Specialty Start Date End Date Turner Swenson DO [address] [place] [address] Physician Orthopaedic Trauma 07/31/21 Mauricio Cowan MD [address] [place] [address] Physician Anesthesiology 10/30/22 Team Status: Inactive Member Role Status Dates Jovita Martinez MD Primary Care Provider Active Dulce Fierro APRN Emergency Provider Active Block Trimmer Relationship Specialty Start Date End Date Turner Swenson DO [address] [place] [address] Physician Orthopaedic Trauma 07/31/21 Mauricio Cowan MD [address] [place] [address] [place] [address] Physician Anesthesiology 10/30/22 Block Trimmer Relationship Specialty Start Date End Date Turner Swenson DO [address] [place] [address] [place] [address] Physician Orthopaedic Trauma 07/31/21 Mauricio Cowan MD [address] [place] [address] [place] [address] Physician Anesthesiology 10/30/22 Sofya Dsouza APRN-JEWELRY SALES COORDINATOR [address] [place] [address] CARDING UTILITY TENDER Physical Medicine & Rehab/PM&R 09/03/23 Block Trimmer Relationship Specialty Start Date End Date Turner Swenson DO [address] [place] [address] [place] [address] Physician Orthopaedic Trauma 07/31/21 Mauricio Cowan MD [address] [place] [address] [place] [address] Physician Anesthesiology 10/30/22 Sofya Dsouza APRN-JEWELRY SALES COORDINATOR [address] [place] [address] CARDING UTILITY TENDER Physical Medicine & Rehab/PM&R 09/03/23 Block Trimmer Relationship Specialty Start Date End Date Turner Swenson DO [address] [place] [address] [place] [address] Physician Orthopaedic Trauma 07/31/21 Mauricio Cowan MD [address] [place] [address] [place] [address] Physician Anesthesiology 10/30/22 Sofya Dsouza APRN-JEWELRY SALES COORDINATOR [address] [place], [place] [phone] CARDING UTILITY TENDER Physical Medicine & Rehab/PM&R 09/03/23 Block Trimmer Relationship Specialty Start Date End Date Turner Swenson DO [address] [place] [address] [place] [address] Physician Orthopaedic Trauma 07/31/21 Mauricio Cowan MD [address] [place] [address] [place] [id number] Physician Anesthesiology 10/30/22 Sofya Dsouza APRN-JEWELRY SALES COORDINATOR [address] [place], [place] [phone] CARDING UTILITY TENDER Physical Medicine & Rehab/PM&R 09/03/23 Reason for Visit (unrecogniz ed section and content) Reason Comments Monitoring/follow-up Ankle foot pain Specialty Diagnoses / Procedures Referred By Contac t Referred To Contact Diagnoses Paresthesia of left lower extremity Alison Hogan MD [address] [place], [place] [phone] Mauricio Cowan MD [address] [place] [address] [place] [id number] Referral ID Status Reason Start Date Expiration Date V isits Requested Visits Authorized [id number] Authorized 08/16/2022 08/16/2023 3 3 Reason Comments Evaluation Follow up Left Tibia and Right Femur Specialty Diagnoses / Procedures Referred By Contac t Referred To Contact Radiology Diagnoses Closed displaced comminuted fracture of shaft of left tibia, initial encounter Procedures XR TIBIA LEFT 2 VIEWS Turner Swenson DO [address] [facility] [place] [address] [facility] DIAGNOSTIC RADIOLOGY [address] [place] [address] [place] [address] Referral ID Status Reason Start Date Expiration Date Visits Re quested Visits Authorized [id number] Closed 04/05/2022 04/05/2023 1 1 Reason Comments [...] RIGHT MINIMUM 2 VIEWS Chinyere Curry PA-C [address] [place] [address] [facility] DIAGNOSTIC RADIOLOGY [address] [place] [address] [place] [address] Referral ID Status Reason Start Date Expiration Date Visits Re quested Visits Authorized [id number] Closed 04/26/2023 04/25/2024 1 1 Reason Comments Pain generalized Medication Management Leg/thigh symptoms Reason Comments Leg/thigh symptoms Specialty Diagnoses / Procedures Referred By Contac t Referred To Contact Radiology Diagnoses Pain in left jimenez Procedures XR TIBIA LEFT 2 VIEWS Sofya Dsouza APRN-CNP [address] [place] [address] [facility] DIAGNOSTIC RADIOLOGY [address] [place] [address] [place] [address] Referral ID Status Reason Start Date Expiration Date Visits Re quested Visits Authorized [id number] Closed 07/12/2024 07/12/2025 1 1 Reason Comments [...] BE BASED ON THE PRIMARY CLINICAL RECORDS. [employer] provides no warranty or guarantee of the accuracy or completeness of information in this document.
[2024-12-19 07:29] VITALS: BP 132/80; PULSE 72; TEMP 36.1; O2SAT 98; BMI 23.9
[2024-12-19] MEDS: 0.9 % SODIUM CHLORIDE 500 ML 50 ML IV (07:43)
[2024-12-19 08:37] VITALS: BP 127/91; PULSE 67; TEMP 36.9; O2SAT 98
[2024-12-19 08:52] VITALS: BP 115/83; BP 123/75; PULSE 50; PULSE 62; TEMP 36.8; O2SAT 98; O2SAT 99
== END 2024-12-19 09:11 | disposition home or self-care (01) ==
PROVIDERS: PCP Family Medicine; Visit Provider Surgery
PROC: (CPT 00731; principal; 2024-12-19 08:30)
DX: K21.9 Gastro-esophageal reflux disease without esophagitis (principal); K30 Functional dyspepsia; K44.9 Diaphragmatic hernia without obstruction or gangrene; G47.33 Obstructive sleep apnea (adult) (pediatric); Z87.891 Personal history of nicotine dependence; G89.29 Other chronic pain; G62.9 Polyneuropathy, unspecified
CPT/HCPCS: 00731; 43235; J1100; J2405; J2704